=== PATIENT | female | born 1950 | race Asian ===

== ENCOUNTER 2017-07-21 14:30 | Inpatient (IN) | payer MEDICAID ==
[~2017-07-21] VITALS: Ht 165.1 cm; Wt 70.8 kg
[2017-07-21 14:31] VITALS: BP 120/80
[2017-07-21] MEDS ORDERED: MULTIVITAMINS1 EAC2 ORAL (14:50)
[2017-07-21] MEDS ORDERED: CRANBERRY425 MG PO (14:50)
[2017-07-21] MEDS ORDERED: LEVOTHYROXINE75 MCG ORAL (14:50)
[2017-07-21] MEDS ORDERED: VITAMIN C500 M1 ORAL (14:50)
[2017-07-21] MEDS ORDERED: ACETAMINOP160 MG/54 ORAL (14:50)
[2017-07-21] MEDS ORDERED: DOCUSATE SODIU100 MG ORAL (14:50)
[2017-07-21 15:07] VITALS: BP 129/80
[2017-07-21 15:28] LABS: BASOPHILS % (AUTO) 0.8 % (0.0-2.0); EOSINOPHILS % (AUTO) 1.8 % (0.0-3.0); LYMPHOCYTES % (AUTO) 31.8 % (20.0-45.0); MEAN CORPUSCULAR HEMOGLOBIN 33.8 PG (27.0-31.0); MEAN CORPUSCULAR VOLUME 106 FL (80-99); MEAN PLATELET VOLUME 4.7 FL (6.5-10.1); NEUTROPHILS % (AUTO) 60.7 % (45.0-75.0); PLATELET COUNT 237 K/UL (150-450); RED BLOOD COUNT 2.44 M/UL (4.20-5.40); RED CELL DISTRIBUTION WIDTH 14.6 % (11.6-14.8); WHITE BLOOD COUNT 5.4 K/UL (4.8-10.8)
[2017-07-21] MEDS ORDERED: DOCUSATE SODIU100 M2 ORAL (15:28)
[2017-07-21] MEDS ORDERED: ACETAMINOPHEN325 M1 ORAL ×2 (15:28)
[2017-07-21] MEDS ORDERED: VITAMIN C250 MG ORAL (15:28)
[2017-07-21] MEDS ORDERED: BACTRIM 400-801 EACH ORAL (15:28)
[2017-07-21 15:36] LABS: INR 0.9 (0.9-1.1); PROTHROMBIN TIME 9.6 SEC (9.30-11.50)
[2017-07-21 15:48] LABS: TROPONIN I < 0.30 ng/mL (<=0.30)
[2017-07-21 15:50] LABS: ALANINE AMINOTRANSFERASE 17 U/L (3-33); ALBUMIN/GLOBULIN RATIO 1.1 (1.0-2.7); ANION GAP 8 (5-15); ASPARTATE AMINO TRANSFERASE 30 U/L (5-40); CALCIUM 8.6 mg/dL (8.6-10.2); CARBON DIOXIDE 33 mEQ/L (20-30); CHLORIDE 98 mEQ/L (98-107); CREATININE 0.8 mg/dL (0.5-0.9); GLOMERULAR FILTRATION RATE > 60 mL/min (>60); HEMOLYSIS 3; POTASSIUM 3.6 mEQ/L (3.4-4.9); SODIUM 139 mEQ/L (135-145); TOTAL PROTEIN 5.7 g/dL (6.6-8.7)
--- NOTE | 2017-07-21 17:41 | Emergency Room Report ---
History of Present Illness General Chief Complaint: Abnormal Labs Source: Patient, Medical Record Present Illness HPI Patient is a 66-year-old female brought in by EMS after abnormal laboratory testing. The patient was noted to have a low hemoglobin as well as a high TSH. Patient had prior history of hypothyroidism. The patient was noted to have decreased level of Allergies: Coded Allergies: No Known Allergies (Unverified , 07/21/17) Patient History Reviewed Nursing Documentation: PMH: Agreed, PSxH: Agreed Nursing Documentation-PMH Past Medical History: No History, Except For Hx Neurological Problems: Yes - Alzheimer's disease and dementia Review of Systems All Other Systems: negative except mentioned in HPI Physical Exam Vital Signs Date Time Temp Pulse Resp B/P (MAP) Pulse Ox O2 Delivery O2 Flow Rate FiO2 07/21/17 14:31 97.0 69 16 120/80 99 Nasal Cannula 3.0 Sp02 EP Interpretation: reviewed, normal General Appearance: normal inspection, well appearing, no apparent distress, alert, GCS 15, non-toxic Head: atraumatic ENT: normal ENT inspection, hearing grossly normal, normal voice Neck: normal inspection, full range of motion, supple, no bony tend Respiratory: normal inspection, lungs clear, normal breath sounds, no respiratory distress, no retraction, no wheezing Cardiovascular #1: regular rate, rhythm, no edema Gastrointestinal: normal inspection, normal bowel sounds, non tender, soft, no guarding, no hernia Genitourinary: no CVA tenderness Musculoskeletal: normal inspection, back normal, normal range of motion Neurologic: normal inspection, alert, oriented x3, responsive, mock up maker III-XII nml as tested, speech normal Psychiatric: normal inspection, judgement/insight normal, mood/affect normal Skin: normal inspection, normal color, no rash Medical Decision Making Diagnostic Impression: Primary Impression: Severe anemia Additional Impression: Hypothyroidism ER Course This is 66-year-old female who presented after increased generalized weakness as well as abnormal lab tests. Differential diagnosis included was not limited to hypothyroidism, anemia, GI bleed among others.Because of complexity of patient's case laboratory testing and imaging studies were ordered. Laboratory testing was notable for increased elevation of the TSH. The patient also noted to have persistent anemia with a hemoglobin 8. Dr. Pineda Cormier was contacted for inpatient management. Labs Test 07/21/17 15:00 White Blood Count 5.4 K/UL (4.8-10.8) Red Blood Count 2.44 M/UL (4.20-5.40) Hemoglobin 8.3 G/DL (12.0-16.0) Hematocrit 25.8 % (37.0-47.0) Mean Corpuscular Volume 106 FL (80-99) Mean Corpuscular Hemoglobin 33.8 PG (27.0-31.0) Mean Corpuscular Hemoglobin Concent 32.0 G/DL (32.0-36.0) Red Cell Distribution Width 14.6 % (11.6-14.8) Platelet Count 237 K/UL (150-450) Mean Platelet Volume 4.7 FL (6.5-10.1) Neutrophils (%) (Auto) 60.7 % (45.0-75.0) Lymphocytes (%) (Auto) 31.8 % (20.0-45.0) Monocytes (%) (Auto) 5.0 % (1.0-10.0) Eosinophils (%) (Auto) 1.8 % (0.0-3.0) Basophils (%) (Auto) 0.8 % (0.0-2.0) Differential Total Cells Counted 100 Neutrophils % (Manual) 62 % (45-75) Lymphocytes % (Manual) 31 % (20-45) Monocytes % (Manual) 4 % (1-10) Eosinophils % (Manual) 2 % (0-3) Basophils % (Manual) 1 % (0-2) Band Neutrophils 0 % (0-8) Platelet Estimate Adequate Platelet Morphology Normal Hypochromasia 1+ Anisocytosis 1+ Macrocytosis 1+ Reticulocyte Count 2.0 % (0.0-2.0) Haptoglobin 233 mg/dL (30-200) Prothrombin Time 9.6 SEC (9.30-11.50) Prothromb Time International Ratio 0.9 (0.9-1.1) Activated Partial Thromboplast Time 29 SEC (23-33) Sodium Level 139 mEQ/L (135-145) Potassium Level 3.6 mEQ/L (3.4-4.9) Chloride Level 98 mEQ/L (98-107) Carbon Dioxide Level 33 mEQ/L (20-30) Anion Gap 8 (5-15) Blood Urea Nitrogen 10 mg/dL (7-23) Creatinine 0.8 mg/dL (0.5-0.9) Estimat Glomerular Filtration Rate > 60 mL/min (>60) Glucose Level 113 mg/dL (74-106) Calcium Level 8.6 mg/dL (8.6-10.2) Iron Level 53 ug/dL (37-145) Total Iron Binding Capacity 213 ug/dL (250-400) Percent Iron Saturation 25 % (15-50) Unsaturated Iron Binding 160 ug/dL (112-346) Ferritin 440 ng/mL (13-150) Total Bilirubin 0.2 mg/dL (0.0-1.2) Aspartate Amino Transf (AST/SGOT) 30 U/L (5-40) Alanine Aminotransferase (ALT/SGPT) 17 U/L (3-33) Alkaline Phosphatase 65 U/L (35-104) Lactate Dehydrogenase 258 U/L (135-230) Troponin I < 0.30 ng/mL (<=0.30) Total Protein 5.7 g/dL (6.6-8.7) Albumin 3.0 g/dL (3.5-5.2) Globulin 2.7 g/dL Albumin/Globulin Ratio 1.1 (1.0-2.7) Carcinoembryonic Antigen 11.7 ng/mL Vitamin B12 Level 433 pg/mL (211-946) Thyroid Stimulating Hormone (TSH) 53.170 uIU/mL (0.300-4.500) Last Vital Signs Date Time Temp Pulse Resp B/P (MAP) Pulse Ox O2 Delivery O2 Flow Rate FiO2 07/21/17 15:07 98.5 64 16 129/80 100 Nasal Cannula 3.0 Status: unchanged Disposition: ADMITTED INPATIENT Condition: Serious Referrals: Pineda Cormier MD (PCP) Robi Alexander Jul 21, 2017 17:41
[2017-07-21 19:33] VITALS: BP 120/72
[2017-07-21 20:30] VITALS: BP 116/71
[2017-07-21 21:00] VITALS: BP 130/74
[2017-07-21] MEDS ORDERED: PROSTAT SF (21:11)
[2017-07-21] MEDS ORDERED: PROSTAT SF PO (21:13)
[2017-07-21 21:27] LABS: ANISOCYTOSIS 1+; BAND NEUTROPHILS % (MANUAL) 0 % (0-8); BASOPHILS % (MANUAL) 1 % (0-2); EOSINOPHILS % (MANUAL) 2 % (0-3); HYPOCHROMASIA 1+; LYMPHOCYTES % (MANUAL) 31 % (20-45); MACROCYTES 1+; NEUTROPHILS % (MANUAL) 62 % (45-75); PLATELET ESTIMATE ADEQUATE; PLATELET MORPHOLOGY NORMAL; TOTAL CELLS COUNTED 100
[2017-07-21 21:28] LABS: PATH BLOOD SMEAR/OMC SENT TO PATHOLOGIST
[2017-07-22 00:24] VITALS: BP 142/85
[2017-07-22 04:27] VITALS: BP 140/85
--- NOTE | 2017-07-22 07:53 | Wound Care Consultation ---
Wound Assessment Wound Assessment #1: Wound Number: 1 Wound Present on Admission: Yes New Wound: No Status Change of Wound: No Wound Location Body Site Modif: mid Wound Location Body Site: other - sacrococcygeal area Wound Type: pressure ulcer Martha Test: Does not Martha Pressure Ulcer Stage: I Wound Length: 3.0 Wound Width: 3.5 Percent of Wound Dike/Red: 100 Wound Drainage Amount: None Wound Drainage Odor: None/Absent Tissue Surrounding Wound: Erythemic Wound General Appearance: Reddened Wound Assessment #2: Wound Number: 2 Wound Present on Admission: Yes New Wound: No Status Change of Wound: No Wound Location Body Site Modif: right Wound Location Body Site: other - pubic area Wound Type: other - folliculitis Martha Test: Does not Martha Wound Length: 0.1 Wound Width: 0.1 Percent of Wound Bed Yellow/Wh: 100 Wound Drainage Amount: None Wound Drainage Odor: None/Absent Tissue Surrounding Wound: Erythemic Wound Comment #1 Sacrococcygeal stage I pressure ulcer #2 Folliculitis on pubic area. One single pustule. Recommendation -Folliculitis on pubic area. One single pustule. Cleanse with saline pat dry apply skin barrier film apply adaptic, cover with transparent drg daily and PRN soiled/dislodged -Local wound care for stage I on sacrococcygeal area per protocol -Keep clean and dry -Turn and reposition -Offload both heels -Optimize nutrition -Heel protector on both heels -Low air loss SPR mattress -Assess and f/u accordingly for any changes TERI KEITH RN Jul 22, 2017 07:53
[2017-07-22 08:09] VITALS: BP 134/93
[2017-07-22] MEDS: Pantoprazole Inj IV SCH (08:45)
[2017-07-22 10:32] LABS: BASOPHILS % (AUTO) 0.8 % (0.0-2.0); EOSINOPHILS % (AUTO) 1.5 % (0.0-3.0); LYMPHOCYTES % (AUTO) 26.7 % (20.0-45.0); MEAN CORPUSCULAR HEMOGLOBIN 34.3 PG (27.0-31.0); MEAN CORPUSCULAR HGB CONC 32.5 G/DL (32.0-36.0); MEAN CORPUSCULAR VOLUME 106 FL (80-99); MEAN PLATELET VOLUME 4.9 FL (6.5-10.1); MONOCYTES % (AUTO) 4.4 % (1.0-10.0); NEUTROPHILS % (AUTO) 66.6 % (45.0-75.0); PLATELET COUNT 261 K/UL (150-450); RED BLOOD COUNT 2.49 M/UL (4.20-5.40); RED CELL DISTRIBUTION WIDTH 14.5 % (11.6-14.8); WHITE BLOOD COUNT 5.5 K/UL (4.8-10.8)
[2017-07-22 10:44] LABS: INR 0.9 (0.9-1.1); PROTHROMBIN TIME 9.5 SEC (9.30-11.50)
[2017-07-22 10:47] LABS: ALANINE AMINOTRANSFERASE 14 U/L (3-33); ANION GAP 7 (5-15); ASPARTATE AMINO TRANSFERASE 28 U/L (5-40); CALCIUM 8.9 mg/dL (8.6-10.2); CARBON DIOXIDE 34 mEQ/L (20-30); CHLORIDE 101 mEQ/L (98-107); CREATININE 0.7 mg/dL (0.5-0.9); GLOMERULAR FILTRATION RATE > 60 mL/min (>60); HEMOLYSIS 1; POTASSIUM 3.9 mEQ/L (3.4-4.9); SODIUM 142 mEQ/L (135-145); TOTAL PROTEIN 6.1 g/dL (6.6-8.7)
[2017-07-22 11:53] VITALS: BP 132/80
--- NOTE | 2017-07-22 12:07 | GI Initial Consult Note ---
Emmy Guthrie N.PKary 07/22/17 1207: History of Present Illness General Date patient seen: Jul 22, 2017 Time patient seen: 10:00 Reason for Hospitalization: Abnormal Labs Referring physician: [facility] Reason for Consultation: ANEMIA Present Illness HPI Patient is a 66-year-old female brought in by EMS after abnormal laboratory testing. The patient was noted to have a low hemoglobin as well as a high TSH. Patient had prior history of hypothyroidism. GI consulted for anemia. HPI as noted above. ROS limited, AMS. Pt seen on floor, awake alert NAD with no active s/sx of N/V/D. She presents today with anemia, elevated CEA 11.9 and hypoalbuminemia. Unknown history of endoscopic procedures at this time. Home Meds Reported Medications [Prostat SF] No Conflict Check, 30 ML PO DAILY 07/21/17 Ascorbic Acid* (VITAMIN C*) 250 Mg Tablet, 250 MG ORAL TWICE A DAY, #60 TAB 0 Refills 07/21/17 Acetaminophen* (ACETAMINOPHEN 325MG TABLET*) 325 Mg Tablet, 650 MG ORAL Q6H Y for Mild Pain/Temp > 100.5, TAB 07/21/17 Acetaminophen* (ACETAMINOPHEN 325MG TABLET*) 325 Mg Tablet, 650 MG ORAL Q4H Y for Mild Pain (Pain Scale 1-3), TAB 07/21/17 Docusate Sodium (DOCUSATE SODIUM) 100 Mg Tablet, 100 MG ORAL TWICE A DAY, #60 TAB 0 Refills 07/21/17 Sulfamethoxazole/Trimethoprim (BACTRIM 400-80 MG TABLET*) 1 Each Tablet, 1 TAB ORAL TWICE A DAY, TAB 07/21/17 Ascorbic Acid* (VITAMIN C*) 500 Mg Tablet, 500 MG ORAL TWICE A DAY, TAB 07/21/17 Acetaminophen* (ACETAMINOPHEN*) 160 Mg/5 Ml Solution, 650 MG ORAL Q6H Y for Mild Pain/Temp > 100.5, ML 07/21/17 Levothyroxine Sodium* (LEVOTHYROXINE SODIUM*) 75 Mcg Tablet, 75 MCG ORAL DAILY, TAB Take in the morning on an empty stomach, at least 30 minutes before food. 07/21/17 Docusate Sodium* (DOCUSATE SODIUM*) 100 Mg Capsule, 100 MG ORAL TWICE A DAY, CAP 07/21/17 Multivitamins* (MULTIVITAMINS*) 1 Each Tablet, 1 TAB ORAL DAILY, TAB 0 Refills 07/21/17 Cranberry Extract (CRANBERRY) 425 Mg Capsule, 425 MG PO, CAP 07/21/17 Med list reviewed/reconciled: Yes Allergies: Coded Allergies: No Known Allergies (Unverified , 07/21/17) Patient History Limited by: medical condition History Provided By: Medical Record [facility] Narrative Past Medical History: No History, Except For Hx Neurological Problems: Yes - Alzheimer's disease and dementia Review of Systems All Other Systems: limited Physical Exam Vital Signs Date Time Temp Pulse Resp B/P (MAP) Pulse Ox O2 Delivery O2 Flow Rate FiO2 07/21/17 14:31 97.0 69 16 120/80 99 Nasal Cannula 3.0 Sp02 EP Interpretation: reviewed Labs Laboratory Tests Test 07/21/17 15:00 07/22/17 09:35 White Blood Count 5.4 K/UL (4.8-10.8) 5.5 K/UL (4.8-10.8) Red Blood Count 2.44 M/UL (4.20-5.40) L 2.49 M/UL (4.20-5.40) L Hemoglobin 8.3 G/DL (12.0-16.0) L 8.5 G/DL (12.0-16.0) L Hematocrit 25.8 % (37.0-47.0) L 26.3 % (37.0-47.0) L Mean Corpuscular Volume 106 FL (80-99) H 106 FL (80-99) H Mean Corpuscular Hemoglobin 33.8 PG (27.0-31.0) H 34.3 PG (27.0-31.0) H Mean Corpuscular Hemoglobin Concent 32.0 G/DL (32.0-36.0) 32.5 G/DL (32.0-36.0) Red Cell Distribution Width 14.6 % (11.6-14.8) 14.5 % (11.6-14.8) Platelet Count 237 K/UL (150-450) 261 K/UL (150-450) Mean Platelet Volume 4.7 FL (6.5-10.1) L 4.9 FL (6.5-10.1) L Neutrophils (%) (Auto) 60.7 % (45.0-75.0) 66.6 % (45.0-75.0) Lymphocytes (%) (Auto) 31.8 % (20.0-45.0) 26.7 % (20.0-45.0) Monocytes (%) (Auto) 5.0 % (1.0-10.0) 4.4 % (1.0-10.0) Eosinophils (%) (Auto) 1.8 % (0.0-3.0) 1.5 % (0.0-3.0) Basophils (%) (Auto) 0.8 % (0.0-2.0) 0.8 % (0.0-2.0) Differential Total Cells Counted 100 Neutrophils % (Manual) 62 % (45-75) Lymphocytes % (Manual) 31 % (20-45) Monocytes % (Manual) 4 % (1-10) Eosinophils % (Manual) 2 % (0-3) Basophils % (Manual) 1 % (0-2) Band Neutrophils 0 % (0-8) Platelet Estimate Adequate Platelet Morphology Normal Hypochromasia 1+ Anisocytosis 1+ Macrocytosis 1+ Reticulocyte Count 2.0 % (0.0-2.0) Haptoglobin 233 mg/dL (30-200) H Prothrombin Time 9.6 SEC (9.30-11.50) 9.5 SEC (9.30-11.50) Prothromb Time International Ratio 0.9 (0.9-1.1) 0.9 (0.9-1.1) Activated Partial Thromboplast Time 29 SEC (23-33) 29 SEC (23-33) Sodium Level 139 mEQ/L (135-145) 142 mEQ/L (135-145) Potassium Level 3.6 mEQ/L (3.4-4.9) 3.9 mEQ/L (3.4-4.9) Chloride Level 98 mEQ/L (98-107) 101 mEQ/L (98-107) Carbon Dioxide Level 33 mEQ/L (20-30) H 34 mEQ/L (20-30) H Anion Gap 8 (5-15) 7 (5-15) Blood Urea Nitrogen 10 mg/dL (7-23) 9 mg/dL (7-23) Creatinine 0.8 mg/dL (0.5-0.9) 0.7 mg/dL (0.5-0.9) Estimat Glomerular Filtration Rate > 60 mL/min (>60) > 60 mL/min (>60) Glucose Level 113 mg/dL (74-106) H 79 mg/dL (74-106) Calcium Level 8.6 mg/dL (8.6-10.2) 8.9 mg/dL (8.6-10.2) Iron Level 53 ug/dL (37-145) Total Iron Binding Capacity 213 ug/dL (250-400) L Percent Iron Saturation 25 % (15-50) Unsaturated Iron Binding 160 ug/dL (112-346) Ferritin 440 ng/mL (13-150) H Total Bilirubin 0.2 mg/dL (0.0-1.2) 0.4 mg/dL (0.0-1.2) Aspartate Amino Transf (AST/SGOT) 30 U/L (5-40) 28 U/L (5-40) Alanine Aminotransferase (ALT/SGPT) 17 U/L (3-33) 14 U/L (3-33) Alkaline Phosphatase 65 U/L (35-104) 62 U/L (35-104) Lactate Dehydrogenase 258 U/L (135-230) H Troponin I < 0.30 ng/mL (<=0.30) Total Protein 5.7 g/dL (6.6-8.7) L 6.1 g/dL (6.6-8.7) L Albumin 3.0 g/dL (3.5-5.2) L 3.1 g/dL (3.5-5.2) L Globulin 2.7 g/dL 3.0 g/dL Albumin/Globulin Ratio 1.1 (1.0-2.7) 1.0 (1.0-2.7) Carcinoembryonic Antigen 11.7 ng/mL H Vitamin B12 Level 433 pg/mL (211-946) Methylmalonic Acid Pending Folate Pending Thyroid Stimulating Hormone (TSH) 53.170 uIU/mL (0.300-4.500) Magnesium Level 2.0 mg/dL (1.7-2.5) Free Thyroxine 0.53 ng/dL (0.86-1.85) L General Appearance: no apparent distress, alert Head: normocephalic EENT: PERRL/EOMI, normal ENT inspection Neck: supple Respiratory: normal breath sounds, no respiratory distress Cardiovascular: normal rate Gastrointestinal: normal inspection, non tender, soft Neurologic: alert Skin: normal inspection, normal color, no rash, warm/dry Lymphatic: normal inspection, no adenopathy Current Medications Current Medications Medications (Trade) Dose Ordered Sig/Armani Route PRN Reason Start Time Stop Time Status Last Admin Dose Admin Acetaminophen (Tylenol) 650 mg Q4H PRN ORAL Mild Pain (Pain Scale 1-3) 07/21/17 22:45 08/20/17 22:44 Dextrose (Dextrose 50%) STAT PRN IV Hypoglycemia 07/21/17 22:45 08/20/17 22:44 Ondansetron HCl (Zofran) 4 mg Q6H PRN IVP Nausea & Vomiting 07/21/17 22:45 08/20/17 22:44 Pantoprazole (Protonix) 40 mg DAILY IV 07/22/17 09:00 08/21/17 08:59 07/22/17 08:45 GI: Plan Problems: (1) Elevated CEA (2) Hypoalbuminemia (3) Generalized weakness (4) Severe anemia (5) Hypothyroidism Plan EGD/colonoscopy to be scheduled tomorrow given severe anemia and elevated CEA 11.7. - CLD, NPO @ [facility]. - hold all blood thinners tonight. monitor H&H, prn transfusions anemia work up >> fu B12/folate ppi will resume levothyroxine 75mcg fu labs Discussed with Dr. Otto. Thank you for this patient referral. LEOBARDO OTTO 07/22/17 2193: History of Present Illness General Reason for Hospitalization: Abnormal Labs Present Illness Home Meds Reported Medications [Prostat SF] No Conflict Check, 30 ML PO DAILY 07/21/17 Ascorbic Acid* (VITAMIN C*) 250 Mg Tablet, 250 MG ORAL TWICE A DAY, #60 TAB 0 Refills 07/21/17 Acetaminophen* (ACETAMINOPHEN 325MG TABLET*) 325 Mg Tablet, 650 MG ORAL Q6H Y for Mild Pain/Temp > 100.5, TAB 07/21/17 Acetaminophen* (ACETAMINOPHEN 325MG TABLET*) 325 Mg Tablet, 650 MG ORAL Q4H Y for Mild Pain (Pain Scale 1-3), TAB 07/21/17 Docusate Sodium (DOCUSATE SODIUM) 100 Mg Tablet, 100 MG ORAL TWICE A DAY, #60 TAB 0 Refills 07/21/17 Sulfamethoxazole/Trimethoprim (BACTRIM 400-80 MG TABLET*) 1 Each Tablet, 1 TAB ORAL TWICE A DAY, TAB 07/21/17 Ascorbic Acid* (VITAMIN C*) 500 Mg Tablet, 500 MG ORAL TWICE A DAY, TAB 07/21/17 Acetaminophen* (ACETAMINOPHEN*) 160 Mg/5 Ml Solution, 650 MG ORAL Q6H Y for Mild Pain/Temp > 100.5, ML 07/21/17 Levothyroxine Sodium* (LEVOTHYROXINE SODIUM*) 75 Mcg Tablet, 75 MCG ORAL DAILY, TAB Take in the morning on an empty stomach, at least 30 minutes before food. 07/21/17 Docusate Sodium* (DOCUSATE SODIUM*) 100 Mg Capsule, 100 MG ORAL TWICE A DAY, CAP 07/21/17 Multivitamins* (MULTIVITAMINS*) 1 Each Tablet, 1 TAB ORAL DAILY, TAB 0 Refills 07/21/17 Cranberry Extract (CRANBERRY) 425 Mg Capsule, 425 MG PO, CAP 07/21/17 Allergies: Coded Allergies: No Known Allergies (Unverified , 07/21/17) GI: Plan Plan The patient was seen and examined at bedside and all new and available data was reviewed in the patients chart. I agree with the above findings, impression and plan. (Patient seen earlier today. Signature stamp does not reflect patient encounter time.). -Eloina Rao MDh Burak Villareal Jul 22, 2017 12:07 LEOBARDO OTTO Jul 22, 2017 14:56
[2017-07-22 15:52] VITALS: BP 133/89
[2017-07-22] MEDS ORDERED: Magnesium Citrate Liq Btl ORAL ONE (16:00)
[2017-07-22] MEDS ORDERED: Bisacodyl EC 5mg tab ORAL ONE (16:00)
[2017-07-22] MEDS ORDERED: Polyethylene Glycol 238gm bottle ORAL ONE (16:00)
[2017-07-22 20:48] VITALS: BP 136/82
[2017-07-22] MEDS ORDERED: Fleet's Enema 133ml RECTAL ONE (23:00)
[2017-07-23] VITALS (10 sets, daily range): BP systolic 123–156; BP diastolic 72–96
--- NOTE | 2017-07-23 06:34 | Anethesia Preoperative Eval ---
Anesthesia Pre-op PMH/ROS General Date of Evaluation: Jul 23, 2017 Time of Evaluation: 06:28 Anesthesiologist: petey ASA Score: ASA 3 Mallampati Score Class I : Soft palate, uvula, fauces, pillars visible Class II: Soft palate, uvula, fauces visible Class III: Soft palate, base of uvula visible Class IV: Only hard plate visible Mallampati Classification: Class II Surgeon: yoan Diagnosis: severe anemia Surgical Procedure: egd/colonoscopy Anesthesia History: none Family History: no anesthesia problems Allergies: Coded Allergies: No Known Allergies (Unverified , 07/21/17) Medications: see eMAR Past Medical History Gastrointestinal/Genitourinary: Reports: other - elevated cea Neurologic/Psychiatric: Reports: dementia - alzheimer's disease, other - generalized weakness, Endocrine: Reports: hypothyroidism Hematology/Immune: Reports: anemia Other: other - hypoalbuminemia Anesthesia Pre-op Phys. Exam Physician Exam Last Vital Signs Date Time Temp Pulse Resp B/P (MAP) Pulse Ox O2 Delivery O2 Flow Rate FiO2 07/23/17 04:48 97.7 68 16 142/72 97 07/23/17 00:49 Nasal Cannula 07/22/17 20:48 2.0 Constitutional: NAD Neurologic: CN 2-12 intact Cardiovascular: RRR Respiratory: CTA Gastrointestinal: S/NT/ND Airway Exam Mallampati Score: Class II MO: full Neck: supple TMD: 2fb ROM: limited Anesthesia Pre-op A/P Labs Hematology Test 07/22/17 09:35 White Blood Count 5.5 K/UL (4.8-10.8) Red Blood Count 2.49 M/UL (4.20-5.40) L Hemoglobin 8.5 G/DL (12.0-16.0) L Hematocrit 26.3 % (37.0-47.0) L Mean Corpuscular Volume 106 FL (80-99) H Mean Corpuscular Hemoglobin 34.3 PG (27.0-31.0) H Mean Corpuscular Hemoglobin Concent 32.5 G/DL (32.0-36.0) Red Cell Distribution Width 14.5 % (11.6-14.8) Platelet Count 261 K/UL (150-450) Mean Platelet Volume 4.9 FL (6.5-10.1) L Neutrophils (%) (Auto) 66.6 % (45.0-75.0) Lymphocytes (%) (Auto) 26.7 % (20.0-45.0) Monocytes (%) (Auto) 4.4 % (1.0-10.0) Eosinophils (%) (Auto) 1.5 % (0.0-3.0) Basophils (%) (Auto) 0.8 % (0.0-2.0) Coagulation Test 07/22/17 09:35 Prothrombin Time 9.5 SEC (9.30-11.50) Prothromb Time International Ratio 0.9 (0.9-1.1) Activated Partial Thromboplast Time 29 SEC (23-33) Chemistry Test 07/22/17 09:35 Sodium Level 142 mEQ/L (135-145) Potassium Level 3.9 mEQ/L (3.4-4.9) Chloride Level 101 mEQ/L (98-107) Carbon Dioxide Level 34 mEQ/L (20-30) H Anion Gap 7 (5-15) Blood Urea Nitrogen 9 mg/dL (7-23) Creatinine 0.7 mg/dL (0.5-0.9) Estimat Glomerular Filtration Rate > 60 mL/min (>60) Glucose Level 79 mg/dL (74-106) Calcium Level 8.9 mg/dL (8.6-10.2) Magnesium Level 2.0 mg/dL (1.7-2.5) Total Bilirubin 0.4 mg/dL (0.0-1.2) Aspartate Amino Transf (AST/SGOT) 28 U/L (5-40) Alanine Aminotransferase (ALT/SGPT) 14 U/L (3-33) Alkaline Phosphatase 62 U/L (35-104) Total Protein 6.1 g/dL (6.6-8.7) L Albumin 3.1 g/dL (3.5-5.2) L Globulin 3.0 g/dL Albumin/Globulin Ratio 1.0 (1.0-2.7) Free Thyroxine 0.53 ng/dL (0.86-1.85) L Risk Assessment & Plan Assessment: asa3 Plan: mac Status Change Before Surgery: No Pre-Antibiotics Drug: POORNIMA Scales Jul 23, 2017 06:33
[2017-07-23 07:11] LABS: EOSINOPHILS % (AUTO) 1.1 % (0.0-3.0); LYMPHOCYTES % (AUTO) 21.9 % (20.0-45.0); MEAN CORPUSCULAR HEMOGLOBIN 33.5 PG (27.0-31.0); MEAN CORPUSCULAR HGB CONC 31.5 G/DL (32.0-36.0); MEAN CORPUSCULAR VOLUME 106 FL (80-99); MEAN PLATELET VOLUME 5.5 FL (6.5-10.1); MONOCYTES % (AUTO) 5.3 % (1.0-10.0); NEUTROPHILS % (AUTO) 70.8 % (45.0-75.0); PLATELET COUNT 258 K/UL (150-450); RED BLOOD COUNT 2.58 M/UL (4.20-5.40); RED CELL DISTRIBUTION WIDTH 15.1 % (11.6-14.8); WHITE BLOOD COUNT 5.5 K/UL (4.8-10.8)
[2017-07-23 07:22] LABS: INR 0.9 (0.9-1.1); PROTHROMBIN TIME 9.8 SEC (9.30-11.50)
[2017-07-23 07:27] LABS: ANION GAP 8 (5-15); CALCIUM 8.9 mg/dL (8.6-10.2); CARBON DIOXIDE 35 mEQ/L (20-30); CHLORIDE 101 mEQ/L (98-107); CREATININE 0.7 mg/dL (0.5-0.9); GLOMERULAR FILTRATION RATE > 60 mL/min (>60); HEMOLYSIS 0; POTASSIUM 3.9 mEQ/L (3.4-4.9); SODIUM 144 mEQ/L (135-145)
[2017-07-23] MEDS ORDERED: Propofol 200mg/20ml IV ONE (07:30)
[2017-07-23] MEDS ORDERED: Lidocaine 1% MPF 10mg/ml 5ml ONE (07:30)
[2017-07-23] MEDS ORDERED: NS 500ML IV ONE (07:50)
[2017-07-23] MEDS ORDERED: Midazolam 2mg/2ml Inj IVP PRN (08:00)
[2017-07-23] MEDS ORDERED: fentaNYL 100 mcg/2 mL IV PRN (08:00)
[2017-07-23] MEDS ORDERED: Atropine Inj 1mg/10ml Syr IV PRN (08:00)
[2017-07-23] MEDS ORDERED: DiphenhydrAMINE 50mg/ml Inj IVP PRN (08:00)
--- NOTE | 2017-07-23 08:01 | Pre-Procedure Note/Attestation ---
Pre-Procedure Note/Attestation Complete Prior to Procedure Planned Procedure: not applicable Procedure Narrative: esophagogastroduodenoscopy and colonoscopy Indications for Procedure Pre-Operative Diagnosis: anemia Attestation I attest that I discussed the nature of the procedure; its benefits; risks and complications; and alternatives (and the risks and benefits of such alternatives ), prior to the procedure, with the patient (or the patient's legal medical device sales representative). I attest that, if there was a reasonable possibility of needing a blood transfusion, the patient (or the patient's legal medical device sales representative) was given the [facility] standardized written summary, pursuant to the [place] Blood Safety Act ([place] Health and Safety Code # 1645, as amended). I attest that I re-evaluated the patient just prior to the surgery and that there has been no change in the patient's H&P, except as documented below: LEOBARDO OTTO Jul 23, 2017 08:01
--- NOTE | 2017-07-23 08:01 | Consultation ---
DATE OF CONSULTATION: 07/22/2017 HEMATOLOGY/ONCOLOGY CONSULTATION CONSULTING PHYSICIAN: Arturo Newton M.D. ATTENDING PHYSICIAN: Pineda Cormier M.D. REFERRING PHYSICIAN: Pineda Cormier M.D. REASON FOR CONSULTATION: Evaluation of elevated CEA and anemia. HISTORY OF PRESENT ILLNESS: Dear Dr. Cormier: The patient is a pleasant 66-year-old female with past medical history significant for dementia, Alzheimer disease, hypothyroidism, and influenza vaccination, at this time presents to [facility] with abnormal laboratory testing, high TSH, prior history of hepatitis and again noted to have an elevated CEA as well as anemia and to have an endoscopy tomorrow. GI and Hematology consulted. PAST MEDICAL HISTORY: As noted above. MEDICATIONS: , multivitamin, Tylenol, Levoxyl, and Colace. ALLERGIES: No known drug allergies. Review Of Systems: Difficult to obtain due to the patient's mental status because of dementia. PHYSICAL EXAMINATION: Vital Signs: Temperature 97 degrees Fahrenheit, pulse of 82, respiratory rate 20, blood pressure 120/80, and pulse oximetry 99% on room air. GENERAL: The patient is in no acute distress. PULMONARY: Decreased breath sounds. No crackles noted. CARDIOVASCULAR: Regular rate. No S3 or S4. ABDOMEN: Soft, nontender, and nondistended. EXTREMITIES: There is 1+ edema. Laboratory Data: WBC 4.1, hemoglobin 8.5, hematocrit 26, and platelet count 261,000. ASSESSMENT AND PLAN: 1. Anemia, secondary to chronic disease. Anemia workup has been reviewed. Obtain endoscopy as per GI service on 07/23/2017. 2. Elevated CEA, rule out malignancy especially colon cancer, to obtain endoscopy tomorrow. We will follow up on the results. 3. Macrocytosis, B12 and folic acid deficiency. Folate level at this time is still pending. If macrocytosis is likely related to hypothyroidism, may need to increase Synthroid. 4. Generalized weakness. 5. Hyperlipidemia. I appreciate the consultation. Arturo Newton M.D. DR: Caroline JOB#: [id number] CC:
--- NOTE | 2017-07-23 08:01 | History and Physical Report ---
DATE OF ADMISSION: 07/21/2017 History of Present Illness: The patient is admitted for hypothyroidism with generalized weakness, as well as with anemia, elevated TSH. The patient is a very poor historian, cannot rely upon her history and cannot get any history from her. complication. Past Medical History: , constipation, hypothyroidism, hypoalbuminemia, elevated CEA, and severe anemia. PAST SURGICAL HISTORY: Denies. Medications: Levoxyl 25 mcg daily, multivitamin, vitamin C, and Colace. ALLERGIES: No known allergies. SOCIAL HISTORY: Unable to obtain. FAMILY HISTORY: Unable to obtain. REVIEW OF SYSTEMS: Unable to obtain. Poor historian. PHYSICAL EXAMINATION: Vital Signs: Temperature is 97.2 degrees, pulse is 78, and blood pressure is 132/89. HEENT: PERRLA. NECK: Supple. No lymphadenopathy. CHEST: Clear to auscultation. Gastrointestinal: Soft, nontender, and nondistended. No organomegaly. EXTREMITIES: No edema. Moves all 4 extremities. Neurologic: Sensory intact to light touch. Reflexes are equal on both sides. Confused due to her baseline. Laboratory Data: WBC of 5.9, hemoglobin 8.3, platelets 237,000. Sodium 139, potassium 3.6, BUN of 10, creatinine of 0.8. TSH of 53. ASSESSMENT AND PLAN: 1. Hypothyroidism, severe. 2. Anemia, severe. 3. Elevated chronic obstructive pulmonary disease. 4. I have asked Dr. Srinivasan, Dr. Albarado, Dr. Rubi, and Dr. Newton to see the patient for the above mentioned diagnoses and treatment. Pineda Cormier M.D. DR: Carlos JOB#: [id number] CC:
--- NOTE | 2017-07-23 08:46 | Endoscopy Procedure Note ---
Endoscopy Procedure Note Indication for Procedure: anemia, elevated CEA Procedures Performed: EGD, colonoscopy Operative Findings/Diagnosis: 4 colon polyps, gastritis Specimen: yes Pt Tolerated Procedure Well: Yes Estimated Blood Loss: none Anesthesiologist: salomon Anesthesia: MAC Implant(s) used?: No 50 yrs or older w/o bx or poly: Not Applicable 10yrs. F/U not recommended: Not Applicable LEOBARDO OTTO Jul 23, 2017 08:46
--- NOTE | 2017-07-23 09:30 | Immediate Post-Op Evaluation ---
Immediate Post-Op Evalulation Immediate Post-Op Evalulation Procedure: egd/colonoscopt Date of Evaluation: Jul 23, 2017 Time of Evaluation: 09:03 IV Fluids: 150ml 0.9ns Blood Products: none Estimated Blood Loss: negligible Blood Pressure Systolic: 148 Blood Pressure Diastolic: 91 Pulse Rate: 67 Respiratory Rate: 18 O2 Sat by Pulse Oximetry: 96 Temperature (Fahrenheit): 97.3 Pain Score (1-10): 0 Nausea: No Vomiting: No Complications none Patient Status: awake, reacts, patent Hydration Status: adequate Drug: POORNIMA Scales Jul 23, 2017 09:30
--- NOTE | 2017-07-23 09:32 | 48 Hour Post Anesthesia Eval ---
Post Anesthesia Evaluation Procedure: egd/colonoscopt Date of Evaluation: Jul 23, 2017 Time of Evaluation: 09:31 Blood Pressure Systolic: 147 0: 87 Pulse Rate: 67 Respiratory Rate: 18 Temperature (Fahrenheit): 97.3 O2 Sat by Pulse Oximetry: 96 Airway: patent Nausea: No Vomiting: No Pain Intensity: 0 Hydration Status: adequate Cardiopulmonary Status: stable Mental Status/LOC: patient returned to baseline Post-Anesthesia Complications: none Follow-up care needed: N/A POORNIMA AUGUSTE Jul 23, 2017 09:32
[2017-07-23] MEDS: Pantoprazole Inj IV SCH (09:49)
--- NOTE | 2017-07-23 11:06 | Diagnostic Imaging Report ---
APPROVED REPORT CPT Code: 31386 Present Symptoms Shortness of breath Comments: Screening for SCDs BILATERAL: Imaging reveals a patent deep venous system bilaterally. There is no evidence of thrombus within the femoral, popliteal or tibial segments. The greater saphenous veins are also within normal limits. Doppler indicates normal spontaneous flow within these segments.
--- NOTE | 2017-07-23 13:25 | General Progress Note ---
Assessment/Plan Problem List: (1) Generalized weakness ICD Codes: R53.1 - Weakness SNOMED: 05578628 (2) Hypothyroidism ICD Codes: E03.9 - Hypothyroidism, unspecified SNOMED: 99618207 (3) Elevated CEA ICD Codes: R97.0 - Elevated carcinoembryonic antigen [CEA] SNOMED: 97747540, 176364182 (4) Severe anemia ICD Codes: D64.9 - Anemia, unspecified SNOMED: 316021550 Status: progressing Assessment/Plan anemia w colon polyp dr mitlon did polypectomy and sent it for biopsy elev tsh hypothyroid Subjective ROS Limited/Unobtainable: Yes Constitutional: Reports: no symptoms Allergies: Coded Allergies: No Known Allergies (Unverified , 07/21/17) Objective Last 24 Hour Vital Signs Date Time Temp Pulse Resp B/P (MAP) Pulse Ox O2 Delivery O2 Flow Rate FiO2 07/23/17 11:58 97.7 75 18 140/86 98 Nasal Cannula 2.0 07/23/17 11:03 96 Nasal Cannula 2.0 07/23/17 11:03 Nasal Cannula 2.0 07/23/17 09:32 67 18 96 07/23/17 09:30 67 18 96 07/23/17 09:10 97.8 67 18 142/90 97 Nasal Cannula 2.0 07/23/17 09:02 67 16 141/95 97 Nasal Cannula 2.0 07/23/17 08:57 71 15 143/95 97 Nasal Cannula 2.0 07/23/17 08:52 97.3 71 14 156/96 96 Nasal Cannula 2.0 07/23/17 08:00 60 07/23/17 07:30 98.1 67 18 137/88 94 Nasal Cannula 2.0 07/23/17 04:48 97.7 68 16 142/72 97 07/23/17 04:00 67 07/23/17 00:49 97.5 16 146/92 94 Nasal Cannula 07/23/17 00:00 64 07/22/17 20:48 97.5 66 16 136/82 97 Nasal Cannula 2.0 07/22/17 20:00 66 07/22/17 16:00 61 07/22/17 15:52 97.9 65 18 133/89 99 Nasal Cannula 2.0 Intake and Output 07/23/17 07/24/17 19:00 07:00 Intake Total 150 ml Balance 150 ml IV Total 150 ml Laboratory Tests 07/23/17 06:30: White Blood Count 5.5, Red Blood Count 2.58L, Hemoglobin 8.6L, Hematocrit 27.5L , Mean Corpuscular Volume 106H, Mean Corpuscular Hemoglobin 33.5H, Mean Corpuscular Hemoglobin Concent 31.5L, Red Cell Distribution Width 15.1H, Platelet Count 258, Mean Platelet Volume 5.5L, Neutrophils (%) (Auto) 70.8, Lymphocytes (%) (Auto) 21.9, Monocytes (%) (Auto) 5.3, Eosinophils (%) (Auto) 1.1, Basophils (%) (Auto) 1.0, Prothrombin Time 9.8, Prothromb Time International Ratio 0.9, Sodium Level 144, Potassium Level 3.9, Chloride Level 101, Carbon Dioxide Level 35H, Anion Gap 8, Blood Urea Nitrogen 9, Creatinine 0.7, Estimat Glomerular Filtration Rate > 60, Glucose Level 90, Calcium Level 8.9, CA 19-9 Antigen 14.61 Height (Feet): 5 Height (Inches): 5.00 Weight (Pounds): 156 Cardiovascular: normal rate Respiratory/Chest: lungs clear Abdomen: soft Pineda Cormier MD Jul 23, 2017 13:25
--- NOTE | 2017-07-23 14:26 | Diagnostic Imaging Report ---
Indication: Chest and abdominal pain. Anemia. COPD. Hepatitis Technique: Continuous helical transaxial imaging of the chest, abdomen and pelvis was obtained from the lung bases to the pubic symphysis during intravenous contrast administration. Multiple phases of enhancement obtained. Coronal 2-D reformats were also obtained. Study obtained in a Siemens sensation [address] Total Dose length Product (DLP): [address] Dose Index Volume (CTDIvol): 8.1, 0.15, 73, 13.3, 15.27 mGy Comparison: None Findings: There are small bilateral pleural effusions demonstrated. There is a posterior basilar consolidation versus atelectasis between aerated lung in the effusion. Most of this is probably atelectasis. No adenopathy seen. There is no paracardial effusion demonstrated. Axilla. Clear. There is generalized subcutaneous edema especially within the abdomen and pelvis consistent with anasarca. The aorta is moderately calcified. There is no evidence of bowel obstruction. However there is thickening of the wall of the rectosigmoid colon is fluid-filled. There is presacral soft tissue stranding present. Findings consistent with proctocolitis. There is mild ascites. The right diverticula are noted in the colon. No obvious abnormalities of the liver or spleen identified. The gallbladder is grossly unremarkable. The pancreas is grossly unremarkable. There is no hydronephrosis. The appendix is not seen. There is severe compression fracture deformity of the T12 vertebra which appears sclerotic Impression: Small bilateral pleural effusions with posterior basilar atelectasis. Pneumonia not excluded. Anasarca Proctocolitis with wall thickening. Liquefied stool likely indicative of diarrhea. Please correlate clinically. Trace ascites Atherosclerotic disease. Appendix not seen Right 2 cm ovarian cyst T12 compression fracture probably old. The CT scanner at [facility] is accredited by the [employer] and the scans are performed using dose optimization techniques as appropriate to a performed exam including Automatic Exposure control.
--- NOTE | 2017-07-23 14:47 | General Progress Note ---
Assessment/Plan Assessment/Plan ASSESSMENT AND PLAN: 1. Anemia, secondary to chronic disease. Anemia workup has been reviewed. 2. Elevated CEA, rule out malignancy especially colon cancer, GI following, to have egd/colo 3. Macrocytosis. If macrocytosis is likely related to hypothyroidism, may need to increase Synthroid. 4. Generalized weakness. 5. Hyperlipidemia. Subjective Date patient seen: Jul 22, 2017 Hematologic/Lymphatic: Reports: anemia Allergies: Coded Allergies: No Known Allergies (Unverified , 07/21/17) All Systems: reviewed and negative except above Objective Last 24 Hour Vital Signs Date Time Temp Pulse Resp B/P (MAP) Pulse Ox O2 Delivery O2 Flow Rate FiO2 07/23/17 12:00 55 07/23/17 11:58 97.7 75 18 140/86 98 Nasal Cannula 2.0 07/23/17 11:03 96 Nasal Cannula 2.0 07/23/17 11:03 Nasal Cannula 2.0 07/23/17 09:32 67 18 96 07/23/17 09:30 67 18 96 07/23/17 09:10 97.8 67 18 142/90 97 Nasal Cannula 2.0 07/23/17 09:02 67 16 141/95 97 Nasal Cannula 2.0 07/23/17 08:57 71 15 143/95 97 Nasal Cannula 2.0 07/23/17 08:52 97.3 71 14 156/96 96 Nasal Cannula 2.0 07/23/17 08:00 60 07/23/17 07:30 98.1 67 18 137/88 94 Nasal Cannula 2.0 07/23/17 04:48 97.7 68 16 142/72 97 07/23/17 04:00 67 07/23/17 00:49 97.5 16 146/92 94 Nasal Cannula 07/23/17 00:00 64 07/22/17 20:48 97.5 66 16 136/82 97 Nasal Cannula 2.0 07/22/17 20:00 66 07/22/17 16:00 61 07/22/17 15:52 97.9 65 18 133/89 99 Nasal Cannula 2.0 Intake and Output 07/23/17 07/24/17 19:00 07:00 Intake Total 150 ml Balance 150 ml IV Total 150 ml Laboratory Tests 07/23/17 06:30: White Blood Count 5.5, Red Blood Count 2.58L, Hemoglobin 8.6L, Hematocrit 27.5L , Mean Corpuscular Volume 106H, Mean Corpuscular Hemoglobin 33.5H, Mean Corpuscular Hemoglobin Concent 31.5L, Red Cell Distribution Width 15.1H, Platelet Count 258, Mean Platelet Volume 5.5L, Neutrophils (%) (Auto) 70.8, Lymphocytes (%) (Auto) 21.9, Monocytes (%) (Auto) 5.3, Eosinophils (%) (Auto) 1.1, Basophils (%) (Auto) 1.0, Prothrombin Time 9.8, Prothromb Time International Ratio 0.9, Sodium Level 144, Potassium Level 3.9, Chloride Level 101, Carbon Dioxide Level 35H, Anion Gap 8, Blood Urea Nitrogen 9, Creatinine 0.7, Estimat Glomerular Filtration Rate > 60, Glucose Level 90, Calcium Level 8.9, CA 19-9 Antigen 14.61 Height (Feet): 5 Height (Inches): 5.00 Weight (Pounds): 156 General Appearance: no apparent distress EENT: normal ENT inspection Neck: normal inspection Cardiovascular: no gallop/murmur 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
--- NOTE | 2017-07-23 17:30 | Procedure Note ---
DATE OF PROCEDURE: 07/23/2017 SURGEON: Imer Rubi M.D. Procedure: Colonoscopy with snare polypectomy and endoscopy with biopsy. ANESTHESIOLOGIST: Celina Gerber M.D. INSTRUMENT: Olympus adult flexible upper endoscope and colonoscope. INDICATION: Anemia with elevated CEA. The procedure, risks, benefits, and possible consequences, including hemorrhage, aspiration, perforation and infection, and alternative treatments, were explained to the patient/legal guardian by Dr. Imer Rubi and the patient/legal guardian understood and accepted these risks. Description Of Procedure: After informed consent was obtained and the patient was adequately sedated, Olympus upper endoscope was advanced from mouth into the second portion of the duodenum and retroflexion was performed in the stomach. The patient had diffuse gastritis. Random biopsy from body and antrum of the stomach was obtained to rule out H. pylori infection. The patient had 1 polyp in the distal body of the stomach. It measured roughly about 5 mm, removed with a cold biopsy forceps technique. At this time, the upper endoscope was retrieved and the patient was turned over for colonoscopy. First, a rectal exam was performed, which was normal. Then, the scope was advanced from rectum into the cecum. Quality of prep was poor. We still managed to pass the scope through and we spent a lot of time washing. I would say more than a liter of fluid was aspirated from this colon exam. The patient had a total of 4 polyps, all removed with the snare polypectomy technique, 2 in the ascending colon and 1 in the transverse and the largest one was in the descending colon. The largest one measured roughly about 9 mm. Retroflexion of rectum was performed, which showed evidence of internal hemorrhoids. SUMMARY OF FINDINGS: 1. Gastric polyps, status post biopsy. 2. Gastritis, status post biopsy. 3. Four colonic polyps removed. See above for details. 4. Internal hemorrhoids. 5. Poor colonic prep. RECOMMENDATIONS: 1. We are going to order a clemens CT given the elevated CEA of 11. 2. The patient will need another colonoscopy in 3 years. 3. Follow up biopsy results. I want to thank, Dr. Pineda Cormier, for this kind referral. Imer Kirstin Rubi DR: TIANA JOB#: [id number] CC: Pineda Cormier M.D.; Fax#: [phone]
--- NOTE | 2017-07-23 22:13 | General Progress Note ---
Assessment/Plan Assessment/Plan ASSESSMENT AND PLAN: 1. Anemia, secondary to chronic disease. Anemia workup has been reviewed. 2. Elevated CEA, rule out malignancy --> s/p egd/colo with polyectomy. Awaiting pathology report. 3. Macrocytosis 2/2 hypothyroid. The patient is on Synthroid. 4. Generalized weakness. 5. Hyperlipidemia. Subjective Hematologic/Lymphatic: Reports: anemia Allergies: Coded Allergies: No Known Allergies (Unverified , 07/21/17) All Systems: reviewed and negative except above Subjective s/p egd/colo, NAD Objective Last 24 Hour Vital Signs Date Time Temp Pulse Resp B/P (MAP) Pulse Ox O2 Delivery O2 Flow Rate FiO2 07/23/17 20:48 Nasal Cannula 2.0 28 07/23/17 20:48 98 Nasal Cannula 2.0 28 07/23/17 20:00 97.7 69 16 123/73 96 Nasal Cannula 2.5 07/23/17 16:00 59 07/23/17 15:35 96.6 66 18 127/85 98 Nasal Cannula 2.0 07/23/17 12:00 55 07/23/17 11:58 97.7 75 18 140/86 98 Nasal Cannula 2.0 07/23/17 11:03 96 Nasal Cannula 2.0 07/23/17 11:03 Nasal Cannula 2.0 07/23/17 09:32 67 18 96 07/23/17 09:30 67 18 96 07/23/17 09:10 97.8 67 18 142/90 97 Nasal Cannula 2.0 07/23/17 09:02 67 16 141/95 97 Nasal Cannula 2.0 07/23/17 08:57 71 15 143/95 97 Nasal Cannula 2.0 07/23/17 08:52 97.3 71 14 156/96 96 Nasal Cannula 2.0 07/23/17 08:00 60 07/23/17 07:30 98.1 67 18 137/88 94 Nasal Cannula 2.0 07/23/17 04:48 97.7 68 16 142/72 97 07/23/17 04:00 67 07/23/17 00:49 97.5 16 146/92 94 Nasal Cannula 07/23/17 00:00 64 Intake and Output 07/23/17 07/24/17 19:00 07:00 Intake Total 390 ml Balance 390 ml Intake Oral 240 ml IV Total 150 ml # Voids 1 Laboratory Tests 07/23/17 06:30: White Blood Count 5.5, Red Blood Count 2.58L, Hemoglobin 8.6L, Hematocrit 27.5L , Mean Corpuscular Volume 106H, Mean Corpuscular Hemoglobin 33.5H, Mean Corpuscular Hemoglobin Concent 31.5L, Red Cell Distribution Width 15.1H, Platelet Count 258, Mean Platelet Volume 5.5L, Neutrophils (%) (Auto) 70.8, Lymphocytes (%) (Auto) 21.9, Monocytes (%) (Auto) 5.3, Eosinophils (%) (Auto) 1.1, Basophils (%) (Auto) 1.0, Prothrombin Time 9.8, Prothromb Time International Ratio 0.9, Sodium Level 144, Potassium Level 3.9, Chloride Level 101, Carbon Dioxide Level 35H, Anion Gap 8, Blood Urea Nitrogen 9, Creatinine 0.7, Estimat Glomerular Filtration Rate > 60, Glucose Level 90, Calcium Level 8.9, CA 19-9 Antigen 14.61 Height (Feet): 5 Height (Inches): 5.00 Weight (Pounds): 156 General Appearance: no apparent distress EENT: TMs normal Neck: normal alignment Cardiovascular: no gallop/murmur Abdomen: normal bowel sounds 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
[2017-07-24 00:48] VITALS: BP 125/74
[2017-07-24 04:00] VITALS: BP 148/76
[2017-07-24 07:08] LABS: EOSINOPHILS % (AUTO) 0.7 % (0.0-3.0); LYMPHOCYTES % (AUTO) 26.6 % (20.0-45.0); MEAN CORPUSCULAR HEMOGLOBIN 34.3 PG (27.0-31.0); MEAN CORPUSCULAR VOLUME 107 FL (80-99); MONOCYTES % (AUTO) 5.1 % (1.0-10.0); NEUTROPHILS % (AUTO) 66.6 % (45.0-75.0); PLATELET COUNT 250 K/UL (150-450); RED BLOOD COUNT 2.44 M/UL (4.20-5.40); RED CELL DISTRIBUTION WIDTH 14.8 % (11.6-14.8); WHITE BLOOD COUNT 6.4 K/UL (4.8-10.8)
[2017-07-24 07:51] LABS: ANION GAP 7 (5-15); CALCIUM 8.6 mg/dL (8.6-10.2); CARBON DIOXIDE 36 mEQ/L (20-30); CHLORIDE 102 mEQ/L (98-107); CREATININE 0.8 mg/dL (0.5-0.9); GLOMERULAR FILTRATION RATE > 60 mL/min (>60); HEMOLYSIS 1; POTASSIUM 3.8 mEQ/L (3.4-4.9); SODIUM 145 mEQ/L (135-145)
[2017-07-24 08:08] VITALS: BP 126/86
[2017-07-24] MEDS: Pantoprazole Inj IV SCH (08:44)
[2017-07-24 11:56] VITALS: BP 131/81
[2017-07-24 13:14] LABS: OTHERS PATHOLOGIST COMMENT
[2017-07-24 15:49] VITALS: BP 117/65
--- NOTE | 2017-07-24 19:34 | General Progress Note ---
Assessment/Plan Problem List: (1) Colon polyps ICD Codes: K63.5 - Polyp of colon SNOMED: 53255022 (2) Gastritis ICD Codes: K29.70 - Gastritis, unspecified, without bleeding SNOMED: 8399014 (3) Elevated CEA ICD Codes: R97.0 - Elevated carcinoembryonic antigen [CEA] SNOMED: 77544936, 347702632 (4) Severe anemia ICD Codes: D64.9 - Anemia, unspecified SNOMED: 730287259 Assessment/Plan stable labs negative CT for malignancy s/p EGD and colonoscopy ok to dc GI stand point Subjective ROS Limited/Unobtainable: No Allergies: Coded Allergies: No Known Allergies (Unverified , 07/21/17) Objective Last 24 Hour Vital Signs Date Time Temp Pulse Resp B/P (MAP) Pulse Ox O2 Delivery O2 Flow Rate FiO2 07/24/17 16:00 75 07/24/17 15:49 97.3 78 18 117/65 97 Nasal Cannula 2.0 07/24/17 12:00 66 07/24/17 11:56 97.3 74 18 131/81 98 Nasal Cannula 2.0 07/24/17 09:00 80 07/24/17 08:08 97.7 71 18 126/86 97 Nasal Cannula 2.0 07/24/17 04:26 64 07/24/17 04:00 97.2 73 20 148/76 98 Room Air 2.0 28 07/24/17 00:48 97.5 73 16 125/74 98 Room Air 07/24/17 00:00 74 07/23/17 20:48 Nasal Cannula 2.0 28 07/23/17 20:48 98 Nasal Cannula 2.0 28 07/23/17 20:00 97.7 69 16 123/73 96 Nasal Cannula 2.5 07/23/17 19:56 73 Intake and Output 07/24/17 07/25/17 19:00 07:00 Intake Total 540 ml Balance 540 ml Intake Oral 540 ml # Voids 2 # Bowel Movements 1 Laboratory Tests 07/24/17 04:45: White Blood Count 6.4, Red Blood Count 2.44L, Hemoglobin 8.4L, Hematocrit 26.2L , Mean Corpuscular Volume 107H, Mean Corpuscular Hemoglobin 34.3H, Mean Corpuscular Hemoglobin Concent 32.0, Red Cell Distribution Width 14.8, Platelet Count 250, Mean Platelet Volume 5.0L, Neutrophils (%) (Auto) 66.6, Lymphocytes ( %) (Auto) 26.6, Monocytes (%) (Auto) 5.1, Eosinophils (%) (Auto) 0.7, Basophils (%) (Auto) 1.0, Sodium Level 145, Potassium Level 3.8, Chloride Level 102, Carbon Dioxide Level 36H, Anion Gap 7, Blood Urea Nitrogen 12, Creatinine 0.8, Estimat Glomerular Filtration Rate > 60, Glucose Level 91, Calcium Level 8.6 Height (Feet): 5 Height (Inches): 5.00 Weight (Pounds): 156 General Appearance: no apparent distress EENT: normal ENT inspection Neck: supple Cardiovascular: normal rate Respiratory/Chest: decreased breath sounds Abdomen: normal bowel sounds, non tender, soft Extremities: non-tender LEOBARDO OTTO Jul 24, 2017 19:34
[2017-07-24 20:00] VITALS: BP 127/75
--- NOTE | 2017-07-24 22:16 | General Progress Note ---
Assessment/Plan Assessment/Plan ASSESSMENT AND PLAN: 1. Anemia, secondary to chronic disease. Anemia workup has been reviewed. --> transfuse if hgb below 8 --> watch counts 2. Elevated CEA, rule out malignancy --> s/p egd/colo with polyectomy. Awaiting pathology report. 3. Macrocytosis 2/2 hypothyroid. The patient is on Synthroid. 4. Generalized weakness. 5. Hyperlipidemia. Subjective Constitutional: Reports: no symptoms HEENT: Reports: no symptoms Cardiovascular: Reports: no symptoms Respiratory: Reports: no symptoms Gastrointestinal/Abdominal: Reports: no symptoms Genitourinary: Reports: no symptoms Neurologic/Psychiatric: Reports: no symptoms Endocrine: Reports: no symptoms Hematologic/Lymphatic: Reports: no symptoms Allergies: Coded Allergies: No Known Allergies (Unverified , 07/21/17) Subjective resting, NAD, VSS Objective Last 24 Hour Vital Signs Date Time Temp Pulse Resp B/P (MAP) Pulse Ox O2 Delivery O2 Flow Rate FiO2 07/24/17 20:00 97.5 72 18 127/75 97 Nasal Cannula 2.0 28 07/24/17 20:00 68 07/24/17 16:00 75 07/24/17 15:49 97.3 78 18 117/65 97 Nasal Cannula 2.0 07/24/17 12:00 66 07/24/17 11:56 97.3 74 18 131/81 98 Nasal Cannula 2.0 07/24/17 09:00 80 07/24/17 08:08 97.7 71 18 126/86 97 Nasal Cannula 2.0 07/24/17 04:26 64 07/24/17 04:00 97.2 73 20 148/76 98 Room Air 2.0 28 07/24/17 00:48 97.5 73 16 125/74 98 Room Air 07/24/17 00:00 74 Intake and Output 07/24/17 07/25/17 19:00 07:00 Intake Total 540 ml Balance 540 ml Intake Oral 540 ml # Voids 2 # Bowel Movements 1 Laboratory Tests 07/24/17 04:45: White Blood Count 6.4, Red Blood Count 2.44L, Hemoglobin 8.4L, Hematocrit 26.2L , Mean Corpuscular Volume 107H, Mean Corpuscular Hemoglobin 34.3H, Mean Corpuscular Hemoglobin Concent 32.0, Red Cell Distribution Width 14.8, Platelet Count 250, Mean Platelet Volume 5.0L, Neutrophils (%) (Auto) 66.6, Lymphocytes ( %) (Auto) 26.6, Monocytes (%) (Auto) 5.1, Eosinophils (%) (Auto) 0.7, Basophils (%) (Auto) 1.0, Sodium Level 145, Potassium Level 3.8, Chloride Level 102, Carbon Dioxide Level 36H, Anion Gap 7, Blood Urea Nitrogen 12, Creatinine 0.8, Estimat Glomerular Filtration Rate > 60, Glucose Level 91, Calcium Level 8.6 Height (Feet): 5 Height (Inches): 5.00 Weight (Pounds): 156 General Appearance: no apparent distress EENT: normal ENT inspection Neck: normal alignment Cardiovascular: normal rate Skin: warm/dry Arturo Newton Jul 24, 2017 22:16
[2017-07-25] VITALS (7 sets, daily range): BP systolic 117–140; BP diastolic 73–86
--- NOTE | 2017-07-25 07:07 | General Progress Note ---
Assessment/Plan Problem List: (1) Generalized weakness Assessment & Plan: Due to anemia probably. Stable. ICD Codes: R53.1 - Weakness SNOMED: 48292660 (2) Hypothyroidism Assessment & Plan: Follow-up TSH. Levothyroxine dose adjusted. ICD Codes: E03.9 - Hypothyroidism, unspecified SNOMED: 38963481 (3) Elevated CEA Assessment & Plan: Malignancy w/u. ICD Codes: R97.0 - Elevated carcinoembryonic antigen [CEA] SNOMED: 99493666, 032648854 (4) Severe anemia Assessment & Plan: H/H stable. GI and heme follow-up. ICD Codes: D64.9 - Anemia, unspecified SNOMED: 763734374 (5) Gastritis Assessment & Plan: GI w/u. 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 No isolation when discharged. ICD Codes: Z22.39 - Carrier of other specified bacterial diseases SNOMED: 053982695 Subjective HEENT: Reports: no symptoms Respiratory: Reports: no symptoms Gastrointestinal/Abdominal: Reports: no symptoms Genitourinary: Reports: no symptoms Allergies: Coded Allergies: No Known Allergies (Unverified , 07/21/17) Objective Last 24 Hour Vital Signs Date Time Temp Pulse Resp B/P (MAP) Pulse Ox O2 Delivery O2 Flow Rate FiO2 07/25/17 04:02 96.8 75 20 129/74 96 Nasal Cannula 2.0 07/25/17 04:00 71 07/25/17 00:00 73 07/25/17 00:00 98.1 74 18 138/82 97 Nasal Cannula 2.0 28 07/24/17 20:00 97.5 72 18 127/75 97 Nasal Cannula 2.0 28 07/24/17 20:00 68 07/24/17 16:00 75 07/24/17 15:49 97.3 78 18 117/65 97 Nasal Cannula 2.0 07/24/17 12:00 66 07/24/17 11:56 97.3 74 18 131/81 98 Nasal Cannula 2.0 07/24/17 09:00 80 07/24/17 08:08 97.7 71 18 126/86 97 Nasal Cannula 2.0 Height (Feet): 5 Height (Inches): 5.00 Weight (Pounds): 156 General Appearance: no apparent distress Neck: non-tender Cardiovascular: normal rate Respiratory/Chest: no respiratory distress Abdomen: no mass Extremities: non-tender Edema: non-pitting Skin: warm/dry LIZETTE SANABRIA Jul 25, 2017 07:07
[2017-07-25] MEDS: Pantoprazole Inj IV SCH (08:16)
--- NOTE | 2017-07-25 13:45 | General Progress Note ---
Assessment/Plan Problem List: (1) Colon polyps ICD Codes: K63.5 - Polyp of colon SNOMED: 78149123 (2) Gastritis ICD Codes: K29.70 - Gastritis, unspecified, without bleeding SNOMED: 8378167 (3) Elevated CEA ICD Codes: R97.0 - Elevated carcinoembryonic antigen [CEA] SNOMED: 96413262, 488130154 (4) Severe anemia ICD Codes: D64.9 - Anemia, unspecified SNOMED: 033681304 Assessment/Plan stable labs negative CT for malignancy s/p EGD and colonoscopy ok to dc GI stand point Subjective ROS Limited/Unobtainable: Yes Allergies: Coded Allergies: No Known Allergies (Unverified , 07/21/17) Subjective no event Objective Last 24 Hour Vital Signs Date Time Temp Pulse Resp B/P (MAP) Pulse Ox O2 Delivery O2 Flow Rate FiO2 07/25/17 12:00 77 07/25/17 11:34 98.1 72 20 127/83 96 Nasal Cannula 2.0 07/25/17 08:02 97.3 74 20 140/86 97 Nasal Cannula 2.0 07/25/17 08:00 74 07/25/17 07:51 Nasal Cannula 2.0 28 07/25/17 07:50 98 Nasal Cannula 2.0 28 07/25/17 04:02 96.8 75 20 129/74 96 Nasal Cannula 2.0 07/25/17 04:00 71 07/25/17 00:00 73 07/25/17 00:00 98.1 74 18 138/82 97 Nasal Cannula 2.0 28 07/24/17 20:00 97.5 72 18 127/75 97 Nasal Cannula 2.0 28 07/24/17 20:00 68 07/24/17 16:00 75 07/24/17 15:49 97.3 78 18 117/65 97 Nasal Cannula 2.0 Intake and Output 07/25/17 07/26/17 19:00 07:00 Intake Total 120 ml Balance 120 ml Intake Oral 120 ml Height (Feet): 5 Height (Inches): 5.00 Weight (Pounds): 156 General Appearance: alert EENT: normal ENT inspection Neck: supple Cardiovascular: normal rate Respiratory/Chest: decreased breath sounds Abdomen: normal bowel sounds, non tender, soft Extremities: non-tender LEOBARDO OTTO Jul 25, 2017 13:44
[2017-07-25 15:50] LABS: MEAN CORPUSCULAR HEMOGLOBIN 33.9 PG (27.0-31.0); MEAN CORPUSCULAR HGB CONC 31.5 G/DL (32.0-36.0); MEAN CORPUSCULAR VOLUME 107 FL (80-99); MEAN PLATELET VOLUME 4.8 FL (6.5-10.1); PLATELET COUNT 232 K/UL (150-450); RED BLOOD COUNT 2.24 M/UL (4.20-5.40); RED CELL DISTRIBUTION WIDTH 14.6 % (11.6-14.8); WHITE BLOOD COUNT 5.7 K/UL (4.8-10.8)
[2017-07-25 16:28] LABS: BAND NEUTROPHILS % (MANUAL) 1 % (0-8); BASOPHILS % (MANUAL) 1 % (0-2); LYMPHOCYTES % (MANUAL) 21 % (20-45); NEUTROPHILS % (MANUAL) 71 % (45-75); TOTAL CELLS COUNTED 100
[2017-07-25 16:29] LABS: ANISOCYTOSIS 1+; EOSINOPHILS % (MANUAL) 0 % (0-3); PLATELET ESTIMATE ADEQUATE; POLYCHROMASIA 1+
[2017-07-25 16:30] LABS: HYPOCHROMASIA 1+; MACROCYTES 2+; PLATELET MORPHOLOGY NORMAL
[2017-07-25 16:42] LABS: ALANINE AMINOTRANSFERASE 22 U/L (12-78); ALBUMIN/GLOBULIN RATIO 0.7 (1.0-2.7); ANION GAP 5 (5-15); ASPARTATE AMINO TRANSFERASE 30 U/L (15-37); CALCIUM 8.3 MG/DL (8.5-10.1); CARBON DIOXIDE 32 MMOL/L (21-32); CHLORIDE 101 MMOL/L (98-107); CREATININE 0.8 MG/DL (0.55-1.00); GLOMERULAR FILTRATION RATE > 60 mL/min (>60); POTASSIUM 3.7 MMOL/L (3.5-5.1); SODIUM 138 MMOL/L (136-145); THYROID STIMULATING HORMONE 44.998 uiU/mL (0.360-3.740); TOTAL PROTEIN 6.2 G/DL (6.4-8.2)
--- NOTE | 2017-07-25 16:55 | General Progress Note ---
Assessment/Plan Assessment/Plan ASSESSMENT AND PLAN: 1. Anemia, secondary to chronic disease. Anemia workup has been reviewed. --> transfuse if hgb below 8, have ordered for 1 unit transfusion --> watch counts 2. Elevated CEA, rule out malignancy --> s/p egd/colo with polyectomy. Awaiting pathology report. 3. Macrocytosis 2/2 hypothyroid. The patient is on Synthroid. 4. Generalized weakness. 5. Hyperlipidemia. Subjective Constitutional: Reports: no symptoms HEENT: Reports: no symptoms Cardiovascular: Reports: no symptoms Respiratory: Reports: no symptoms Gastrointestinal/Abdominal: Reports: no symptoms Genitourinary: Reports: no symptoms Neurologic/Psychiatric: Reports: no symptoms Endocrine: Reports: no symptoms Hematologic/Lymphatic: Reports: no symptoms Allergies: Coded Allergies: No Known Allergies (Unverified , 07/21/17) Subjective afebrile, no events overnight, HH has dropped Objective Last 24 Hour Vital Signs Date Time Temp Pulse Resp B/P (MAP) Pulse Ox O2 Delivery O2 Flow Rate FiO2 07/25/17 15:54 97.9 71 18 123/81 96 Nasal Cannula 2.0 07/25/17 12:00 77 07/25/17 11:34 98.1 72 20 127/83 96 Nasal Cannula 2.0 07/25/17 08:02 97.3 74 20 140/86 97 Nasal Cannula 2.0 07/25/17 08:00 74 07/25/17 07:51 Nasal Cannula 2.0 28 07/25/17 07:50 98 Nasal Cannula 2.0 28 07/25/17 04:02 96.8 75 20 129/74 96 Nasal Cannula 2.0 07/25/17 04:00 71 07/25/17 00:00 73 07/25/17 00:00 98.1 74 18 138/82 97 Nasal Cannula 2.0 28 07/24/17 20:00 97.5 72 18 127/75 97 Nasal Cannula 2.0 28 07/24/17 20:00 68 Intake and Output 07/25/17 07/26/17 19:00 07:00 Intake Total 240 ml Balance 240 ml Intake Oral 240 ml # Voids 1 Laboratory Tests 07/25/17 15:30: White Blood Count 5.7, Red Blood Count 2.24L, Hemoglobin 7.6L, Hematocrit 24.1L , Mean Corpuscular Volume 107H, Mean Corpuscular Hemoglobin 33.9H, Mean Corpuscular Hemoglobin Concent 31.5L, Red Cell Distribution Width 14.6, Platelet Count 232, Mean Platelet Volume 4.8L, Neutrophils (%) (Auto) , Lymphocytes (%) (Auto) , Monocytes (%) (Auto) , Eosinophils (%) (Auto) , Basophils (%) (Auto) , Differential Total Cells Counted 100, Neutrophils % ( Manual) 71, Lymphocytes % (Manual) 21, Monocytes % (Manual) 6, Eosinophils % ( Manual) 0, Basophils % (Manual) 1, Band Neutrophils 1, Platelet Estimate Adequate, Platelet Morphology Normal, Polychromasia 1+, Hypochromasia 1+, Anisocytosis 1+, Macrocytosis 2+, Sodium Level 138, Potassium Level 3.7, Chloride Level 101, Carbon Dioxide Level 32, Anion Gap 5, Blood Urea Nitrogen 13 , Creatinine 0.8, Estimat Glomerular Filtration Rate > 60, Glucose Level 89, Calcium Level 8.3L, Total Bilirubin 0.3, Aspartate Amino Transf (AST/SGOT) 30, Alanine Aminotransferase (ALT/SGPT) 22, Alkaline Phosphatase 68, Total Protein 6.2L, Albumin 2.6L, Globulin 3.6, Albumin/Globulin Ratio 0.7L, Thyroid Stimulating Hormone (TSH) 44.998H, Free Thyroxine 0.74 Height (Feet): 5 Height (Inches): 5.00 Weight (Pounds): 156 General Appearance: no apparent distress EENT: normal ENT inspection Neck: normal alignment Cardiovascular: regular rhythm Respiratory/Chest: normal breath sounds Abdomen: no organomegaly Extremities: non-tender Skin: warm/dry Arturo Newton Jul 25, 2017 16:55
--- NOTE | 2017-07-25 17:30 | Consultation ---
DATE OF CONSULTATION: 07/25/2017 CONSULTING PHYSICIAN: Layton Srinivasan M.D. REFERRING PHYSICIAN: Pineda Cormier M.D. REASON FOR CONSULTATION: Hypothyroidism. History Of Present Illness: The patient is a 66-year-old female, who was brought in by paramedics for abnormal laboratory testing. The patient was found to have a low hemoglobin and a high TSH, has a prior history of hypothyroidism, and she was taking levothyroxine 75 mcg, complains is questionable. Endocrinology was consulted in order to assist in the management of hypothyroidism. PAST MEDICAL HISTORY: 1. Dementia. 2. Alzheimer disease. 3. Hypothyroidism. 4. Elevated CEA. 5. Hepatitis. PAST SURGICAL HISTORY: Unknown. MEDICATIONS: Reviewed and reconciled. ALLERGIES TO MEDICATIONS: None. REVIEW OF SYSTEMS: Difficult to obtain. PHYSICAL EXAMINATION: GENERAL: The patient is arousable. Vital Signs: Blood pressure is 120/80, pulse of 80, temperature of 98.2, and respiratory rate of 18. HEENT: Pupils are equal and reactive to light. Sclerae are anicteric. NECK: No JVD. HEART: Regular. LUNGS: Clear. ABDOMEN: Positive bowel sounds. EXTREMITIES: No clubbing or cyanosis. Positive for edema. Laboratory Values: WBC 6, hemoglobin 8, hematocrit 26, and platelets of 250,000. Sodium 145, potassium 3.8, chloride 103, bicarbonate 36, BUN 12, and creatinine 0.8. TSH of 53 and free T4 of 0.53. DIAGNOSES: 1. Anemia of chronic kidney disease. 2. Elevated CEA. 3. Hypothyroidism. 4. Macrocytosis, most likely secondary to hypothyroidism. 5. Hyperlipidemia. Plan: As an outpatient, the patient was on levothyroxine 75 mcg. According to the weight, I will increase the dose to 100 mcg daily. TSH would be followed in 2 weeks to make sure that it is trending down. Free T4 is also low and should be repeated in 2 weeks. We will follow the patient during the hospital stay. Thank you, Dr. Cormier, for requesting this consultation. Layton Srinivasan M.D. : AJIT/SHAMAR JOB#: [id number] CC:
[2017-07-26 04:00] VITALS: BP 133/84
[2017-07-26 08:03] VITALS: BP 142/90
[2017-07-26] MEDS: Pantoprazole Inj IV SCH (09:47)
--- NOTE | 2017-07-26 10:57 | GI Progress Note ---
Assessment/Plan Problems: (1) Colon polyps ICD Codes: K63.5 - Polyp of colon SNOMED: 20778997 (2) Gastritis ICD Codes: K29.70 - Gastritis, unspecified, without bleeding SNOMED: 6232781 (3) Severe anemia ICD Codes: D64.9 - Anemia, unspecified SNOMED: 661296500 (4) Elevated CEA ICD Codes: R97.0 - Elevated carcinoembryonic antigen [CEA] SNOMED: 66834854, 629067306 (5) Hypoalbuminemia ICD Codes: E88.09 - Other disorders of plasma-protein metabolism, not elsewhere classified SNOMED: 290892564 (6) Hypothyroidism ICD Codes: E03.9 - Hypothyroidism, unspecified SNOMED: 68031965 (7) Generalized weakness ICD Codes: R53.1 - Weakness SNOMED: 28180202 Status: stable Status Narrative Discussed with Dr. Rubi. Assessment/Plan stable labs negative CT for malignancy s/p EGD and colonoscopy ok to dc GI stand point Subjective Subjective limited Objective Last 24 Hour Vital Signs Date Time Temp Pulse Resp B/P (MAP) Pulse Ox O2 Delivery O2 Flow Rate FiO2 07/26/17 09:42 96 Nasal Cannula 3.0 32 07/26/17 09:42 Nasal Cannula 3.0 32 07/26/17 08:03 97.9 63 18 142/90 95 Nasal Cannula 2.0 07/26/17 04:00 58 07/26/17 04:00 97.3 63 20 133/84 95 Nasal Cannula 2.0 07/26/17 01:00 65 07/25/17 23:41 97.9 66 18 117/73 96 Nasal Cannula 07/25/17 20:29 97.9 77 18 136/74 98 Nasal Cannula 07/25/17 20:00 82 07/25/17 19:30 98 Nasal Cannula 2.0 28 07/25/17 19:30 Nasal Cannula 2.0 28 07/25/17 16:00 70 07/25/17 15:54 97.9 71 18 123/81 96 Nasal Cannula 2.0 07/25/17 12:00 77 07/25/17 11:34 98.1 72 20 127/83 96 Nasal Cannula 2.0 Intake and Output 07/26/17 07/27/17 19:00 07:00 Intake Total 240 ml Balance 240 ml Intake Oral 240 ml Laboratory Tests Test 07/25/17 15:30 White Blood Count 5.7 K/UL (4.8-10.8) Red Blood Count 2.24 M/UL (4.20-5.40) L Hemoglobin 7.6 G/DL (12.0-16.0) L Hematocrit 24.1 % (37.0-47.0) L Mean Corpuscular Volume 107 FL (80-99) H Mean Corpuscular Hemoglobin 33.9 PG (27.0-31.0) H Mean Corpuscular Hemoglobin Concent 31.5 G/DL (32.0-36.0) L Red Cell Distribution Width 14.6 % (11.6-14.8) Platelet Count 232 K/UL (150-450) Mean Platelet Volume 4.8 FL (6.5-10.1) L Neutrophils (%) (Auto) % (45.0-75.0) Lymphocytes (%) (Auto) % (20.0-45.0) Monocytes (%) (Auto) % (1.0-10.0) Eosinophils (%) (Auto) % (0.0-3.0) Basophils (%) (Auto) % (0.0-2.0) Differential Total Cells Counted 100 Neutrophils % (Manual) 71 % (45-75) Lymphocytes % (Manual) 21 % (20-45) Monocytes % (Manual) 6 % (1-10) Eosinophils % (Manual) 0 % (0-3) Basophils % (Manual) 1 % (0-2) Band Neutrophils 1 % (0-8) Platelet Estimate Adequate Platelet Morphology Normal Polychromasia 1+ Hypochromasia 1+ Anisocytosis 1+ Macrocytosis 2+ Sodium Level 138 MMOL/L (136-145) Potassium Level 3.7 MMOL/L (3.5-5.1) Chloride Level 101 MMOL/L (98-107) Carbon Dioxide Level 32 MMOL/L (21-32) Anion Gap 5 (5-15) Blood Urea Nitrogen 13 mg/dL (7-18) Creatinine 0.8 MG/DL (0.55-1.00) Estimat Glomerular Filtration Rate > 60 mL/min (>60) Glucose Level 89 MG/DL (74-106) Calcium Level 8.3 MG/DL (8.5-10.1) L Total Bilirubin 0.3 MG/DL (0.2-1.0) Aspartate Amino Transf (AST/SGOT) 30 U/L (15-37) Alanine Aminotransferase (ALT/SGPT) 22 U/L (12-78) Alkaline Phosphatase 68 U/L (46-116) Total Protein 6.2 G/DL (6.4-8.2) L Albumin 2.6 G/DL (3.4-5.0) L Globulin 3.6 g/dL Albumin/Globulin Ratio 0.7 (1.0-2.7) L Thyroid Stimulating Hormone (TSH) 44.998 uiU/mL (0.360-3.740) Free Thyroxine 0.74 NG/DL (0.10-1.46) Height (Feet): 5 Height (Inches): 5.00 Weight (Pounds): 156 General Appearance: no apparent distress, alert Cardiovascular: normal rate Respiratory/Chest: normal breath sounds, no respiratory distress, other - NC Abdominal Exam: soft Emmy Guthrie N.P. Jul 26, 2017 10:57
[2017-07-26 11:52] VITALS: BP 140/82
[2017-07-26 15:46] LABS: BASOPHILS % (AUTO) 1.1 % (0.0-2.0); EOSINOPHILS % (AUTO) 1.1 % (0.0-3.0); LYMPHOCYTES % (AUTO) 24.8 % (20.0-45.0); MEAN CORPUSCULAR HEMOGLOBIN 31.6 PG (27.0-31.0); MEAN CORPUSCULAR HGB CONC 30.7 G/DL (32.0-36.0); MEAN CORPUSCULAR VOLUME 103 FL (80-99); MONOCYTES % (AUTO) 5.8 % (1.0-10.0); NEUTROPHILS % (AUTO) 67.3 % (45.0-75.0); PLATELET COUNT 229 K/UL (150-450); RED BLOOD COUNT 2.92 M/UL (4.20-5.40); RED CELL DISTRIBUTION WIDTH 15.5 % (11.6-14.8); WHITE BLOOD COUNT 6.2 K/UL (4.8-10.8)
--- NOTE | 2017-07-26 15:54 | Cardiac Electrophysiology PN ---
Subjective Subjective Cardiology consult Dictated [id number] Objective Last 24 Hour Vital Signs Date Time Temp Pulse Resp B/P (MAP) Pulse Ox O2 Delivery O2 Flow Rate FiO2 07/26/17 12:59 65 07/26/17 11:52 98.1 71 18 140/82 96 Room Air 07/26/17 09:42 96 Nasal Cannula 3.0 32 07/26/17 09:42 Nasal Cannula 3.0 32 07/26/17 09:00 59 07/26/17 08:03 97.9 63 18 142/90 95 Nasal Cannula 2.0 07/26/17 04:00 58 07/26/17 04:00 97.3 63 20 133/84 95 Nasal Cannula 2.0 07/26/17 01:00 65 07/25/17 23:41 97.9 66 18 117/73 96 Nasal Cannula 07/25/17 20:29 97.9 77 18 136/74 98 Nasal Cannula 07/25/17 20:00 82 07/25/17 19:30 98 Nasal Cannula 2.0 28 07/25/17 19:30 Nasal Cannula 2.0 28 07/25/17 16:00 70 07/25/17 15:54 97.9 71 18 123/81 96 Nasal Cannula 2.0 Intake and Output 07/26/17 07/27/17 19:00 07:00 Intake Total 600 ml Balance 600 ml Intake Oral 600 ml # Voids 2 Laboratory Tests Test 07/26/17 15:32 White Blood Count Pending Red Blood Count Pending Hemoglobin Pending Hematocrit Pending Mean Corpuscular Volume Pending Mean Corpuscular Hemoglobin Pending Mean Corpuscular Hemoglobin Concent Pending Red Cell Distribution Width Pending Platelet Count Pending Mean Platelet Volume Pending Neutrophils (%) (Auto) Pending Lymphocytes (%) (Auto) Pending Monocytes (%) (Auto) Pending Eosinophils (%) (Auto) Pending Basophils (%) (Auto) Pending Sodium Level Pending Potassium Level Pending Chloride Level Pending Carbon Dioxide Level Pending Blood Urea Nitrogen Pending Creatinine Pending Estimat Glomerular Filtration Rate Pending Glucose Level Pending Calcium Level Pending ALEKSANDAR MONDRAGON Jul 26, 2017 15:54
[2017-07-26 16:00] VITALS: BP_SYST 119; BP_SYST 124; BP_SYST 147; BP_DIAS 70; BP_DIAS 76; BP_DIAS 85
[2017-07-26 16:13] LABS: ANION GAP 4 (5-15); CALCIUM 8.7 MG/DL (8.5-10.1); CARBON DIOXIDE 32 MMOL/L (21-32); CHLORIDE 105 MMOL/L (98-107); CREATININE 0.7 MG/DL (0.55-1.30); GLOMERULAR FILTRATION RATE > 60 mL/min (>60); POTASSIUM 3.6 MMOL/L (3.5-5.1); SODIUM 141 MMOL/L (136-145)
[2017-07-26] MEDS ORDERED: NS 275ml ONE (18:49)
[2017-07-26] MEDS ORDERED: Tubing Blood Filter IV ONE (18:49)
--- NOTE | 2017-07-26 19:15 | General Progress Note ---
Assessment/Plan Problem List: (1) Hypothyroidism ICD Codes: E03.9 - Hypothyroidism, unspecified SNOMED: 69613906 (2) Generalized weakness ICD Codes: R53.1 - Weakness SNOMED: 42903728 (3) Bradycardia ICD Codes: R00.1 - Bradycardia, unspecified SNOMED: 62859696 Assessment/Plan TSH is improving continue Levothyroxine 100 mcg daily repeat TSH, free T4 in 3 weeks Subjective ROS Limited/Unobtainable: Yes Allergies: Coded Allergies: No Known Allergies (Unverified , 07/21/17) Subjective events noted - interval notes reviewed Objective Last 24 Hour Vital Signs Date Time Temp Pulse Resp B/P (MAP) Pulse Ox O2 Delivery O2 Flow Rate FiO2 07/26/17 16:12 63 07/26/17 16:00 97.9 63 18 124/76 96 Nasal Cannula 2.0 07/26/17 12:59 65 07/26/17 11:52 98.1 71 18 140/82 96 Room Air 07/26/17 09:42 96 Nasal Cannula 3.0 32 07/26/17 09:42 Nasal Cannula 3.0 32 07/26/17 09:00 59 07/26/17 08:03 97.9 63 18 142/90 95 Nasal Cannula 2.0 07/26/17 04:00 58 07/26/17 04:00 97.3 63 20 133/84 95 Nasal Cannula 2.0 07/26/17 01:00 65 07/25/17 23:41 97.9 66 18 117/73 96 Nasal Cannula 07/25/17 20:29 97.9 77 18 136/74 98 Nasal Cannula 07/25/17 20:00 82 07/25/17 19:30 98 Nasal Cannula 2.0 28 07/25/17 19:30 Nasal Cannula 2.0 28 Intake and Output 07/26/17 07/27/17 19:00 07:00 Intake Total 600 ml Balance 600 ml Intake Oral 600 ml # Voids 5 # Bowel Movements 1 Laboratory Tests 07/26/17 15:32: White Blood Count 6.2, Red Blood Count 2.92L, Hemoglobin 9.2L, Hematocrit 30.1L , Mean Corpuscular Volume 103H, Mean Corpuscular Hemoglobin 31.6H, Mean Corpuscular Hemoglobin Concent 30.7L, Red Cell Distribution Width 15.5H, Platelet Count 229, Mean Platelet Volume 5.0L, Neutrophils (%) (Auto) 67.3, Lymphocytes (%) (Auto) 24.8, Monocytes (%) (Auto) 5.8, Eosinophils (%) (Auto) 1.1, Basophils (%) (Auto) 1.1, Sodium Level 141, Potassium Level 3.6, Chloride Level 105, Carbon Dioxide Level 32, Anion Gap 4L, Blood Urea Nitrogen 13, Creatinine 0.7, Estimat Glomerular Filtration Rate > 60, Glucose Level 120H, Calcium Level 8.7 Height (Feet): 5 Height (Inches): 5.00 Weight (Pounds): 156 General Appearance: no apparent distress EENT: pale conjunctivae Neck: normal alignment Cardiovascular: regular rhythm Respiratory/Chest: lungs clear Objective Current Medications Medications (Trade) Dose Ordered Sig/Amrani Route PRN Reason Start Time Stop Time Status Last Admin Dose Admin Acetaminophen (Tylenol) 650 mg Q4H PRN ORAL Mild Pain (Pain Scale 1-3) 07/21/17 22:45 08/20/17 22:44 Dextrose (Dextrose 50%) STAT PRN IV Hypoglycemia 07/21/17 22:45 08/20/17 22:44 Levothyroxine Sodium (Synthroid) 100 mcg DAILY@0630 ORAL 07/25/17 06:30 08/24/17 06:29 07/26/17 05:43 Ondansetron HCl (Zofran) 4 mg Q6H PRN IVP Nausea & Vomiting 07/21/17 22:45 08/20/17 22:44 Pantoprazole (Protonix) 40 mg DAILY IV 07/22/17 09:00 08/21/17 08:59 07/26/17 09:47 DAGOBERTO ANN Jul 26, 2017 19:15
[2017-07-26 20:00] VITALS: BP 130/76
--- NOTE | 2017-07-26 20:40 | General Progress Note ---
Assessment/Plan Problem List: (1) Generalized weakness ICD Codes: R53.1 - Weakness SNOMED: 46582580 (2) Hypothyroidism ICD Codes: E03.9 - Hypothyroidism, unspecified SNOMED: 15820113 (3) Elevated CEA ICD Codes: R97.0 - Elevated carcinoembryonic antigen [CEA] SNOMED: 90084805, 009422555 (4) Severe anemia ICD Codes: D64.9 - Anemia, unspecified SNOMED: 167288838 Status: stable Assessment/Plan anemia w colon polyp dr milton did polypectomy and sent it for biopsy elev tsh hypothyroid has bradycardia consulted dr betancur for bradycardia afebrile Subjective ROS Limited/Unobtainable: Yes Allergies: Coded Allergies: No Known Allergies (Unverified , 07/21/17) Objective Last 24 Hour Vital Signs Date Time Temp Pulse Resp B/P (MAP) Pulse Ox O2 Delivery O2 Flow Rate FiO2 07/26/17 16:12 63 07/26/17 16:00 97.9 63 18 124/76 96 Nasal Cannula 2.0 07/26/17 12:59 65 07/26/17 11:52 98.1 71 18 140/82 96 Room Air 07/26/17 09:42 96 Nasal Cannula 3.0 32 07/26/17 09:42 Nasal Cannula 3.0 32 07/26/17 09:00 59 07/26/17 08:03 97.9 63 18 142/90 95 Nasal Cannula 2.0 07/26/17 04:00 58 07/26/17 04:00 97.3 63 20 133/84 95 Nasal Cannula 2.0 07/26/17 01:00 65 07/25/17 23:41 97.9 66 18 117/73 96 Nasal Cannula Intake and Output 07/26/17 07/27/17 19:00 07:00 Intake Total 600 ml Balance 600 ml Intake Oral 600 ml # Voids 5 # Bowel Movements 1 Laboratory Tests 07/26/17 15:32: White Blood Count 6.2, Red Blood Count 2.92L, Hemoglobin 9.2L, Hematocrit 30.1L , Mean Corpuscular Volume 103H, Mean Corpuscular Hemoglobin 31.6H, Mean Corpuscular Hemoglobin Concent 30.7L, Red Cell Distribution Width 15.5H, Platelet Count 229, Mean Platelet Volume 5.0L, Neutrophils (%) (Auto) 67.3, Lymphocytes (%) (Auto) 24.8, Monocytes (%) (Auto) 5.8, Eosinophils (%) (Auto) 1.1, Basophils (%) (Auto) 1.1, Sodium Level 141, Potassium Level 3.6, Chloride Level 105, Carbon Dioxide Level 32, Anion Gap 4L, Blood Urea Nitrogen 13, Creatinine 0.7, Estimat Glomerular Filtration Rate > 60, Glucose Level 120H, Calcium Level 8.7 Height (Feet): 5 Height (Inches): 5.00 Weight (Pounds): 156 Cardiovascular: normal rate Respiratory/Chest: lungs clear Pineda Cormier MD Jul 26, 2017 20:40
--- NOTE | 2017-07-26 21:59 | General Progress Note ---
Assessment/Plan Assessment/Plan ASSESSMENT AND PLAN: 1. Anemia, secondary to chronic disease. Anemia workup has been reviewed. --> transfuse if hgb below 8 --> watch counts 2. Elevated CEA, rule out malignancy --> s/p egd/colo with polyectomy.Have reviewed pathology report. Negative for carcinoma 3. Macrocytosis 2/2 hypothyroid. The patient is on Synthroid. 4. Generalized weakness. 5. Hyperlipidemia. Subjective Constitutional: Reports: no symptoms HEENT: Reports: no symptoms Cardiovascular: Reports: no symptoms Respiratory: Reports: no symptoms Gastrointestinal/Abdominal: Reports: no symptoms Genitourinary: Reports: no symptoms Neurologic/Psychiatric: Reports: no symptoms Endocrine: Reports: no symptoms Hematologic/Lymphatic: Reports: anemia Allergies: Coded Allergies: No Known Allergies (Unverified , 07/21/17) Subjective s/p transfusion Objective Last 24 Hour Vital Signs Date Time Temp Pulse Resp B/P (MAP) Pulse Ox O2 Delivery O2 Flow Rate FiO2 07/26/17 20:00 59 07/26/17 20:00 97.9 63 12 130/76 96 Nasal Cannula 2.0 07/26/17 16:12 63 07/26/17 16:00 97.9 63 18 124/76 96 Nasal Cannula 2.0 07/26/17 12:59 65 07/26/17 11:52 98.1 71 18 140/82 96 Room Air 07/26/17 09:42 96 Nasal Cannula 3.0 32 07/26/17 09:42 Nasal Cannula 3.0 32 07/26/17 09:00 59 07/26/17 08:03 97.9 63 18 142/90 95 Nasal Cannula 2.0 07/26/17 04:00 58 07/26/17 04:00 97.3 63 20 133/84 95 Nasal Cannula 2.0 07/26/17 01:00 65 07/25/17 23:41 97.9 66 18 117/73 96 Nasal Cannula Intake and Output 07/26/17 07/27/17 19:00 07:00 Intake Total 600 ml Balance 600 ml Intake Oral 600 ml # Voids 5 # Bowel Movements 1 Laboratory Tests 07/26/17 15:32: White Blood Count 6.2, Red Blood Count 2.92L, Hemoglobin 9.2L, Hematocrit 30.1L , Mean Corpuscular Volume 103H, Mean Corpuscular Hemoglobin 31.6H, Mean Corpuscular Hemoglobin Concent 30.7L, Red Cell Distribution Width 15.5H, Platelet Count 229, Mean Platelet Volume 5.0L, Neutrophils (%) (Auto) 67.3, Lymphocytes (%) (Auto) 24.8, Monocytes (%) (Auto) 5.8, Eosinophils (%) (Auto) 1.1, Basophils (%) (Auto) 1.1, Sodium Level 141, Potassium Level 3.6, Chloride Level 105, Carbon Dioxide Level 32, Anion Gap 4L, Blood Urea Nitrogen 13, Creatinine 0.7, Estimat Glomerular Filtration Rate > 60, Glucose Level 120H, Calcium Level 8.7 Height (Feet): 5 Height (Inches): 5.00 Weight (Pounds): 156 General Appearance: no apparent distress EENT: normal ENT inspection Neck: normal alignment Cardiovascular: normal rate Extremities: non-tender 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
[2017-07-27] VITALS: BP 126/78
--- NOTE | 2017-07-27 02:00 | Consultation ---
DATE OF CONSULTATION: 07/26/2017 CARDIOLOGY CONSULTATION REFERRING PHYSICIAN: Pineda Cormier M.D. REASON FOR CONSULTATION: Bradycardia. HISTORY OF PRESENT ILLNESS: The patient is a 66-year-old lady with history of anemia, Alzheimer's dementia, and hypothyroidism, presents to [facility] for high TSH. The patient has a history of hepatitis and noted to have elevated CEA as well as anemia. The patient underwent subsequent EGD and colonoscopy by Dr. Rubi and was evaluated also by Dr. Arturo Newton. Cardiology consultation was obtained for bradycardia, heart rate in the low 50s. REVIEW OF SYSTEMS: Review of systems was negative other than what was mentioned in the history of present illness. PAST MEDICAL HISTORY: 1. Alzheimer's dementia. 2. Hypothyroidism. 3. Anemia. 4. Hyperlipidemia. ALLERGIES: She has no known drug allergies. SOCIAL HISTORY: She lives at home. Does not smoke or drink alcohol. FAMILY HISTORY: Noncontributory. PHYSICAL EXAMINATION: VITAL SIGNS: Blood pressure of 140/82, pulse 71, respirations 18, and temperature 98.1 degrees. HEAD AND NECK: Showed no JVD. LUNGS: Clear. CARDIOVASCULAR: Regular S1 and S2 with no gallop or murmur. ABDOMEN: Soft. EXTREMITIES: No pitting edema. LABORATORY AND DIAGNOSTIC DATA: Her EKG showed sinus rhythm at a rate of 65 with poor R-wave progression. The telemetry strip showed episode of bradycardia, heart rate dropping to low 50s. Her labs show white count of 5.7, hemoglobin 7.6, hematocrit 24.1, and platelet count 232. Sodium 138, potassium 3.7, BUN of 13, creatinine of 0.8, and glucose of 89. TSH is 45 and initially was 53. Free T4 is 0.53. Troponin is negative. ASSESSMENT AND PLAN: 1. Bradycardia due to hypothyroidism with a high thyroid stimulating hormone and low T4. The patient was already started on Synthroid [address] Srinivasan. Consider to watch the patient on telemetry and get an echocardiogram for further evaluation. 2. Elevated CEA and anemia. The patient underwent an esophagogastroduodenoscopy and colonoscopy by Dr. Rubi that showed gastritis and polyps. Pathology result is pending. 3. Dementia. Thank you very much, Dr. Cormier, for allowing me to participate in the care of this patient. Please do not hesitate to contact me for any questions regarding my evaluation. Juan Forbes M.D. DR: JENNIFER JOB#: [id number] CC:
[2017-07-27 04:00] VITALS: BP 136/84
--- NOTE | 2017-07-27 06:13 | General Progress Note ---
Assessment/Plan Problem List: (1) Hypothyroidism ICD Codes: E03.9 - Hypothyroidism, unspecified SNOMED: 51271954 (2) Generalized weakness ICD Codes: R53.1 - Weakness SNOMED: 28716097 (3) Bradycardia ICD Codes: R00.1 - Bradycardia, unspecified SNOMED: 15859770 Assessment/Plan TSH is improving continue Levothyroxine 100 mcg daily repeat TSH, free T4 in 3 weeks I will sign off Subjective ROS Limited/Unobtainable: Yes Allergies: Coded Allergies: No Known Allergies (Unverified , 07/21/17) Subjective events noted - interval notes reviewed Objective Last 24 Hour Vital Signs Date Time Temp Pulse Resp B/P (MAP) Pulse Ox O2 Delivery O2 Flow Rate FiO2 07/27/17 04:00 97.9 62 14 136/84 98 Nasal Cannula 2.0 07/27/17 04:00 53 07/27/17 00:00 97.3 64 12 126/78 95 Nasal Cannula 2.0 07/27/17 00:00 63 07/26/17 20:00 59 07/26/17 20:00 97.9 63 12 130/76 96 Nasal Cannula 2.0 07/26/17 19:30 Nasal Cannula 2.0 28 07/26/17 19:30 95 Nasal Cannula 2.0 28 07/26/17 16:12 63 07/26/17 16:00 97.9 63 18 124/76 96 Nasal Cannula 2.0 07/26/17 12:59 65 07/26/17 11:52 98.1 71 18 140/82 96 Room Air 07/26/17 09:42 96 Nasal Cannula 3.0 32 07/26/17 09:42 Nasal Cannula 3.0 32 07/26/17 09:00 59 07/26/17 08:03 97.9 63 18 142/90 95 Nasal Cannula 2.0 Laboratory Tests 07/26/17 15:32: White Blood Count 6.2, Red Blood Count 2.92L, Hemoglobin 9.2L, Hematocrit 30.1L , Mean Corpuscular Volume 103H, Mean Corpuscular Hemoglobin 31.6H, Mean Corpuscular Hemoglobin Concent 30.7L, Red Cell Distribution Width 15.5H, Platelet Count 229, Mean Platelet Volume 5.0L, Neutrophils (%) (Auto) 67.3, Lymphocytes (%) (Auto) 24.8, Monocytes (%) (Auto) 5.8, Eosinophils (%) (Auto) 1.1, Basophils (%) (Auto) 1.1, Sodium Level 141, Potassium Level 3.6, Chloride Level 105, Carbon Dioxide Level 32, Anion Gap 4L, Blood Urea Nitrogen 13, Creatinine 0.7, Estimat Glomerular Filtration Rate > 60, Glucose Level 120H, Calcium Level 8.7 Height (Feet): 5 Height (Inches): 5.00 Weight (Pounds): 156 General Appearance: no apparent distress Neck: normal alignment Cardiovascular: normal rate Respiratory/Chest: lungs clear Abdomen: normal bowel sounds Objective Item Value Date Time Glucose Level 120 MG/DL H 07/26/17 1532 Current Medications Medications (Trade) Dose Ordered Sig/Armani Route PRN Reason Start Time Stop Time Status Last Admin Dose Admin Acetaminophen (Tylenol) 650 mg Q4H PRN ORAL Mild Pain (Pain Scale 1-3) 07/21/17 22:45 08/20/17 22:44 Dextrose (Dextrose 50%) STAT PRN IV Hypoglycemia 07/21/17 22:45 08/20/17 22:44 Levothyroxine Sodium (Synthroid) 100 mcg DAILY@0630 ORAL 07/25/17 06:30 08/24/17 06:29 07/26/17 05:43 Ondansetron HCl (Zofran) 4 mg Q6H PRN IVP Nausea & Vomiting 07/21/17 22:45 08/20/17 22:44 Pantoprazole (Protonix) 40 mg DAILY IV 07/22/17 09:00 08/21/17 08:59 07/26/17 09:47 DAGOBERTO ANN Jul 27, 2017 06:13
[2017-07-27 08:00] VITALS: BP 140/81
[2017-07-27 08:04] LABS: BASOPHILS % (AUTO) 1.2 % (0.0-2.0); EOSINOPHILS % (AUTO) 1.2 % (0.0-3.0); LYMPHOCYTES % (AUTO) 26.2 % (20.0-45.0); MEAN CORPUSCULAR HEMOGLOBIN 33.4 PG (27.0-31.0); MEAN CORPUSCULAR HGB CONC 32.3 G/DL (32.0-36.0); MEAN CORPUSCULAR VOLUME 103 FL (80-99); MEAN PLATELET VOLUME 5.3 FL (6.5-10.1); MONOCYTES % (AUTO) 5.8 % (1.0-10.0); NEUTROPHILS % (AUTO) 65.6 % (45.0-75.0); PLATELET COUNT 235 K/UL (150-450); RED BLOOD COUNT 3.34 M/UL (4.20-5.40); RED CELL DISTRIBUTION WIDTH 15.1 % (11.6-14.8); WHITE BLOOD COUNT 5.1 K/UL (4.8-10.8)
[2017-07-27] MEDS: Pantoprazole Inj IV SCH (08:20)
[2017-07-27 08:37] LABS: ANION GAP 5 (5-15); CALCIUM 8.5 MG/DL (8.5-10.1); CARBON DIOXIDE 34 MMOL/L (21-32); CHLORIDE 105 MMOL/L (98-107); CREATININE 0.8 MG/DL (0.55-1.30); GLOMERULAR FILTRATION RATE > 60 mL/min (>60); POTASSIUM 4.2 MMOL/L (3.5-5.1); SODIUM 143 MMOL/L (136-145)
[2017-07-27] MEDS ORDERED: TYLENOL650 MG PR (08:49)
[2017-07-27] MEDS ORDERED: LEVOTHYROXINE200 MCG PO (08:53)
[2017-07-27] MEDS ORDERED: ONDANSETRON4 MG/2 M2 IVP (08:55)
[2017-07-27] MEDS ORDERED: PANTOPRAZOLE SO40 MG IV (08:56)
[2017-07-27] MEDS ORDERED: ATROPINE S0.4 MG/1 M IV (09:00)
[2017-07-27] MEDS ORDERED: ACETAMINOPHEN325 M1 ORAL (09:06)
[2017-07-27] MEDS ORDERED: BISACODYL10 M1 PO (09:06)
[2017-07-27] MEDS ORDERED: LEVOTHYROXINE100 MCG ORAL (09:08)
[2017-07-27] MEDS ORDERED: PROTONIX IV40 MG IV (09:10)
[2017-07-27 11:53] VITALS: BP 138/88
--- NOTE | 2017-07-27 14:52 | GI Progress Note ---
Assessment/Plan Problems: (1) Colon polyps ICD Codes: K63.5 - Polyp of colon SNOMED: 17949520 (2) Gastritis ICD Codes: K29.70 - Gastritis, unspecified, without bleeding SNOMED: 7959737 (3) Severe anemia ICD Codes: D64.9 - Anemia, unspecified SNOMED: 358649374 (4) Elevated CEA ICD Codes: R97.0 - Elevated carcinoembryonic antigen [CEA] SNOMED: 21046577, 776640185 (5) Hypoalbuminemia ICD Codes: E88.09 - Other disorders of plasma-protein metabolism, not elsewhere classified SNOMED: 915592406 (6) Hypothyroidism ICD Codes: E03.9 - Hypothyroidism, unspecified SNOMED: 85387520 (7) Generalized weakness ICD Codes: R53.1 - Weakness SNOMED: 48813511 Status: stable Status Narrative Discussed with Dr. Rubi. Assessment/Plan stable labs negative CT for malignancy s/p EGD and colonoscopy ok to dc GI stand point Subjective Subjective limited Objective Last 24 Hour Vital Signs Date Time Temp Pulse Resp B/P (MAP) Pulse Ox O2 Delivery O2 Flow Rate FiO2 07/27/17 11:53 97.7 65 19 138/88 98 Nasal Cannula 2.0 07/27/17 08:00 63 07/27/17 08:00 97.5 61 20 140/81 98 Nasal Cannula 2.0 07/27/17 07:47 96 Nasal Cannula 2.0 28 07/27/17 07:47 Nasal Cannula 2.0 28 07/27/17 04:00 97.9 62 14 136/84 98 Nasal Cannula 2.0 07/27/17 04:00 53 07/27/17 00:00 97.3 64 12 126/78 95 Nasal Cannula 2.0 07/27/17 00:00 63 07/26/17 20:00 59 07/26/17 20:00 97.9 63 12 130/76 96 Nasal Cannula 2.0 07/26/17 19:30 Nasal Cannula 2.0 28 07/26/17 19:30 95 Nasal Cannula 2.0 28 07/26/17 16:12 63 07/26/17 16:00 97.9 63 18 124/76 96 Nasal Cannula 2.0 Intake and Output 07/27/17 07/28/17 19:00 07:00 Intake Total 240 ml Balance 240 ml Intake Oral 240 ml # Voids 2 # Bowel Movements 1 Laboratory Tests Test 07/26/17 15:32 07/27/17 07:40 White Blood Count 6.2 K/UL (4.8-10.8) 5.1 K/UL (4.8-10.8) Red Blood Count 2.92 M/UL (4.20-5.40) L 3.34 M/UL (4.20-5.40) L Hemoglobin 9.2 G/DL (12.0-16.0) L 11.1 G/DL (12.0-16.0) L Hematocrit 30.1 % (37.0-47.0) L 34.5 % (37.0-47.0) L Mean Corpuscular Volume 103 FL (80-99) H 103 FL (80-99) H Mean Corpuscular Hemoglobin 31.6 PG (27.0-31.0) H 33.4 PG (27.0-31.0) H Mean Corpuscular Hemoglobin Concent 30.7 G/DL (32.0-36.0) L 32.3 G/DL (32.0-36.0) Red Cell Distribution Width 15.5 % (11.6-14.8) H 15.1 % (11.6-14.8) H Platelet Count 229 K/UL (150-450) 235 K/UL (150-450) Mean Platelet Volume 5.0 FL (6.5-10.1) L 5.3 FL (6.5-10.1) L Neutrophils (%) (Auto) 67.3 % (45.0-75.0) 65.6 % (45.0-75.0) Lymphocytes (%) (Auto) 24.8 % (20.0-45.0) 26.2 % (20.0-45.0) Monocytes (%) (Auto) 5.8 % (1.0-10.0) 5.8 % (1.0-10.0) Eosinophils (%) (Auto) 1.1 % (0.0-3.0) 1.2 % (0.0-3.0) Basophils (%) (Auto) 1.1 % (0.0-2.0) 1.2 % (0.0-2.0) Sodium Level 141 MMOL/L (136-145) 143 MMOL/L (136-145) Potassium Level 3.6 MMOL/L (3.5-5.1) 4.2 MMOL/L (3.5-5.1) Chloride Level 105 MMOL/L (98-107) 105 MMOL/L (98-107) Carbon Dioxide Level 32 MMOL/L (21-32) 34 MMOL/L (21-32) H Anion Gap 4 (5-15) L 5 (5-15) Blood Urea Nitrogen 13 mg/dL (7-18) 16 mg/dL (7-18) Creatinine 0.7 MG/DL (0.55-1.30) 0.8 MG/DL (0.55-1.30) Estimat Glomerular Filtration Rate > 60 mL/min (>60) > 60 mL/min (>60) Glucose Level 120 MG/DL (74-106) H 90 MG/DL (74-106) Calcium Level 8.7 MG/DL (8.5-10.1) 8.5 MG/DL (8.5-10.1) Troponin I 0.008 ng/mL (0.000-0.056) Pro-B-Type Natriuretic Peptide 438 (0-125) H Height (Feet): 5 Height (Inches): 5.00 Weight (Pounds): 156 General Appearance: no apparent distress, alert Cardiovascular: normal rate Respiratory/Chest: normal breath sounds, no respiratory distress Abdominal Exam: normal bowel sounds, non tender, soft Emmy Guthrie N.P. Jul 27, 2017 14:52
--- NOTE | 2017-07-27 17:40 | Cardiology Report ---
APPROVED REPORT EXAM: Two-dimensional and M-mode echocardiogram with Doppler and color Doppler. INDICATION Bradycardia M-Mode DIMENSIONS IVSd1.9 (0.7-1.1cm)Left Atrium (MM)3.0 (1.6-4.0cm) LVDd3.9 (3.5-5.6cm)Aortic Root3.4 (2.0-3.7cm) PWd1.5 (0.7-1.1cm)Aortic Cusp Exc.1.9 (1.5-2.0cm) LVDs2.3 (2.5-4.0cm) PWs2.0 cm Normal left ventricular chamber size, systolic function and wall motion. Left ventricular ejection fraction estimated to be 55%. Mild to moderate left ventricular hypertrophy. No evidence of pericardial effusion. All other cardiac chamber sizes are within normal limits. Focal aortic valve sclerosis with adequate cusp excursion. Thickened mitral valve leaflets with normal excursion. Mitral annulus and aortic root calcification. Pulmonic valve not well visualized. Normal tricuspid valve structure. IVC at normal size with physiologic collapse. A color flow and spectral Doppler study was performed and revealed: Trace aortic regurgitation. Trace mitral regurgitation. Mitral inflow indicates normal left ventricular diastolic function. Trace tricuspid regurgitation. Tricuspid systolic velocities suggests peak right ventricular systolic pressure of 15 mmHg.
--- NOTE | 2017-07-27 18:53 | General Progress Note ---
Assessment/Plan Assessment/Plan ASSESSMENT AND PLAN: 1. Anemia, secondary to chronic disease. Anemia workup has been reviewed. --> transfuse if hgb below 8 --> watch counts, has currently improved 2. Elevated CEA, rule out malignancy --> s/p egd/colo with polyectomy.Have reviewed pathology report. Negative for carcinoma 3. Macrocytosis 2/2 hypothyroid. The patient is on Synthroid. 4. Generalized weakness. 5. Hyperlipidemia. Subjective Constitutional: Reports: no symptoms HEENT: Reports: no symptoms Cardiovascular: Reports: no symptoms Respiratory: Reports: no symptoms Gastrointestinal/Abdominal: Reports: no symptoms Genitourinary: Reports: no symptoms Neurologic/Psychiatric: Reports: no symptoms Endocrine: Reports: no symptoms Hematologic/Lymphatic: Reports: no symptoms Allergies: Coded Allergies: No Known Allergies (Unverified , 07/21/17) Subjective HH better Objective Last 24 Hour Vital Signs Date Time Temp Pulse Resp B/P (MAP) Pulse Ox O2 Delivery O2 Flow Rate FiO2 07/27/17 11:53 97.7 65 19 138/88 98 Nasal Cannula 2.0 07/27/17 08:00 63 07/27/17 08:00 97.5 61 20 140/81 98 Nasal Cannula 2.0 07/27/17 07:47 96 Nasal Cannula 2.0 28 07/27/17 07:47 Nasal Cannula 2.0 28 07/27/17 04:00 97.9 62 14 136/84 98 Nasal Cannula 2.0 07/27/17 04:00 53 07/27/17 00:00 97.3 64 12 126/78 95 Nasal Cannula 2.0 07/27/17 00:00 63 07/26/17 20:00 59 07/26/17 20:00 97.9 63 12 130/76 96 Nasal Cannula 2.0 07/26/17 19:30 Nasal Cannula 2.0 28 07/26/17 19:30 95 Nasal Cannula 2.0 28 Intake and Output 07/27/17 07/28/17 19:00 07:00 Intake Total 240 ml Balance 240 ml Intake Oral 240 ml # Voids 2 # Bowel Movements 1 Laboratory Tests 07/27/17 07:40: White Blood Count 5.1, Red Blood Count 3.34L, Hemoglobin 11.1L, Hematocrit 34.5L , Mean Corpuscular Volume 103H, Mean Corpuscular Hemoglobin 33.4H, Mean Corpuscular Hemoglobin Concent 32.3, Red Cell Distribution Width 15.1H, Platelet Count 235, Mean Platelet Volume 5.3L, Neutrophils (%) (Auto) 65.6, Lymphocytes (%) (Auto) 26.2, Monocytes (%) (Auto) 5.8, Eosinophils (%) (Auto) 1.2, Basophils (%) (Auto) 1.2, Sodium Level 143, Potassium Level 4.2, Chloride Level 105, Carbon Dioxide Level 34H, Anion Gap 5, Blood Urea Nitrogen 16, Creatinine 0.8, Estimat Glomerular Filtration Rate > 60, Glucose Level 90, Calcium Level 8.5, Troponin I 0.008, Pro-B-Type Natriuretic Peptide 438H Height (Feet): 5 Height (Inches): 5.00 Weight (Pounds): 156 General Appearance: no apparent distress EENT: normal ENT inspection Neck: normal alignment Cardiovascular: no gallop/murmur Respiratory/Chest: no respiratory distress, no accessory muscle use Abdomen: no organomegaly Neurologic: toe puller II-XII grossly normal Arturo Newton Jul 27, 2017 18:53
[2017-07-28 13:36] LABS: OTHERS PATHOLOGIST COMMENT
--- NOTE | 2017-07-29 16:36 | Discharge Summary ---
Discharge Summary Hospital Course Date of Admission Jul 21, 2017 at 16:54 Date of Discharge Jul 27, 2017 at 13:54 Admitting Diagnosis generalized weakness, hypothyroidism HPI Salome Ricks is a 66 year old female who was admitted on Jul 21, 2017 at 16:54 for Generalized Weakness,Hypothyroidism Hospital Course [id number] Discharge Discharge Disposition Patient was discharged to SNF/Subacute Facility(03) Discharge Diagnoses: Shea Duggan REHABILITATION CONSTRUCTION SPECIALIST Jul 29, 2017 16:36
--- NOTE | 2017-07-29 23:19 | Cardiology Report ---
APPROVED REPORT EKG Measurement Heart [id number] Sinus rhythm Low voltage QRS Cannot rule out Anterior infarct, age undetermined Abnormal ECG
--- NOTE | 2017-07-30 04:00 | Discharge Summary 2 SIG ---
DATE OF ADMISSION: 07/21/2017 DATE OF DISCHARGE: 07/27/2017 CONSULTANTS: 1. Imer Rubi M.D. 2. Arturo Newton M.D. 3. Layton Srinivasan M.D. 4. Juan Forbes M.D. BRIEF HOSPITAL COURSE: The patient is a 66-year-old female who is a resident of [facility] who was brought into [facility] ED due to abnormal labs. The patient was found to have anemia and severely high TSH. She has history of hypothyroidism. On evaluation at ED, TSH was elevated to 53. Hemoglobin was 8.3, hematocrit 25, MCV of 106. She was admitted to telemetry for evaluation of hypothyroidism. CEA was elevated to 11. The patient underwent esophagogastroduodenoscopy with colonoscopy on 07/23/[address] Rubi. Findings showed gastric polyps with gastritis. There were four colonic polyps that were removed. There was presence of internal hemorrhoids. Test had poor colonic prep. CT of the abdomen and pelvis showed small bilateral pleural effusions with anasarca and trace ascites. There was liquefied stool indicative of diarrhea. The patient had been on levothyroxine 75 mcg at care home. Levothyroxine dose was increased to 100 mcg daily. She had anemia and anemia workup done, which showed macrocytosis. B12 and folate was within normal limits. Macrocytosis was assessed to be secondary to hypothyroidism. Anemia workup showed anemia due to chronic disease. She had normal iron level with elevated iron stores. Venous duplex of lower extremity revealed patent venous system bilaterally. She episodes of bradycardia, heart rate in the low 50s, but stable. TSH improved. She was recommended need for repeat TSH and free T4 in three weeks. EGD biopsy was negative for high-grade dysplasia. No intestinal metaplasia or dysplasia or malignancy. She was eventually discharged back to care home. FINAL DIAGNOSES: 1. Hypothyroidism. 2. Bradycardia. 3. Anemia of chronic disease. 4. Macrocytosis secondary to hypothyroidism. 5. Hypoalbuminemia. 6. Gastritis. 7. Colonic polyps. 8. Internal hemorrhoids. 9. Gastric polyps. 10. Hyperlipidemia. DISPOSITION: The patient was discharged to [facility]. DISCHARGE MEDICATIONS: Refer to medication list. Pnieda Cormier M.D. I have been assigned to dictate discharge summary on this account and I was not involved in the patient's management. Shea Duggan N.P. DR: Katarzyna JOB#: [id number] CC: SHANI
== END 2017-07-27 13:54 | DRG 424 ==
LOC: EDBD 14:30 → EMR 14:55 → EDBEDREQ 16:39 → 2E 16:54 → EDBEDREQ 18:43
PROC: 0DB68ZX Excision of Stomach, Via Natural or Artificial Opening Endoscopic, Diagnostic (ICD-10-PCS; 2017-07-23)
PROC: 0DBK8ZX Excision of Ascending Colon, Via Natural or Artificial Opening Endoscopic, Diagnostic (ICD-10-PCS; principal; 2017-07-23 08:03)
PROC: 0DBL8ZX Excision of Transverse Colon, Via Natural or Artificial Opening Endoscopic, Diagnostic (ICD-10-PCS; 2017-07-23 08:03)
PROC: 0DBM8ZX Excision of Descending Colon, Via Natural or Artificial Opening Endoscopic, Diagnostic (ICD-10-PCS; 2017-07-23 08:03)
PROC: 30233N1 Transfusion of Nonautologous Red Blood Cells into Peripheral Vein, Percutaneous Approach (ICD-10-PCS; 2017-07-25)
DX: E03.9 Hypothyroidism, unspecified (principal); J90 Pleural effusion, not elsewhere classified; G30.9 Alzheimer's disease, unspecified; F02.80 Dementia in other diseases classified elsewhere, unspecified severity, without behavioral disturbance, psychotic disturbance, mood disturbance, and anxiety; E88.09 Other disorders of plasma-protein metabolism, not elsewhere classified; R97.0 Elevated carcinoembryonic antigen [CEA]; K63.5 Polyp of colon; K31.7 Polyp of stomach and duodenum; K64.8 Other hemorrhoids; R00.1 Bradycardia, unspecified; D63.8 Anemia in other chronic diseases classified elsewhere; K29.70 Gastritis, unspecified, without bleeding; Z99.3 Dependence on wheelchair; Z74.01 Bed confinement status
CPT/HCPCS: 36415; 71260; 74177; 80048; 80053; 82378; 82607; 82728; 82746; 82962; 83010; 83540; 83550; 83615; 83735; 83880; 83921; 84439; 84443; 84484; 85007; 85025; 85044; 85060; 85610; 85730; 86301; 86850; 86900; 86901; 86920; 87081; 93005; 93306; 93970; 94003; 94150; 94760; 99285

== ENCOUNTER 2018-07-20 11:47 | Inpatient (IN) | payer MEDICARE, MEDICAID ==
[~2018-07-20] VITALS: Ht 165.1 cm; Wt 52.2 kg
[~2018-07-20 11:47] MED LIST: ACETAMINOP160 MG/54 ORAL; ACETAMINOPHEN325 M1 ORAL; ATROPINE S0.4 MG/1 M IV; BACTRIM 400-801 EACH ORAL; BISACODYL10 M1 PO; CRANBERRY425 MG PO; DOCUSATE SODIU100 M2 ORAL; DOCUSATE SODIU100 MG ORAL; LEVOTHYROXINE100 MCG ORAL; LEVOTHYROXINE200 MCG PO; LEVOTHYROXINE75 MCG ORAL; MULTIVITAMINS1 EAC2 ORAL; ONDANSETRON4 MG/2 M2 IVP; PANTOPRAZOLE SO40 MG IV; PROSTAT SF; PROSTAT SF PO; PROTONIX IV40 MG IV; TYLENOL650 MG PR; VITAMIN C250 MG ORAL; VITAMIN C500 M1 ORAL
[2018-07-20] MEDS ORDERED: Sodium Chloride 500ML 500 ML IV ONE (11:53)
[2018-07-20 12:12] LABS: BASOPHILS % (AUTO) 0.7 % (0.0-2.0); EOSINOPHILS % (AUTO) 2.7 % (0.0-3.0); HEMATOCRIT 27.9 % (37.0-47.0); HEMOGLOBIN 8.4 G/DL (12.0-16.0); LYMPHOCYTES % (AUTO) 32.2 % (20.0-45.0); MEAN CORPUSCULAR VOLUME 89 FL (80-99); MONOCYTES % (AUTO) 5.4 % (1.0-10.0); NEUTROPHILS % (AUTO) 58.9 % (45.0-75.0); PLATELET COUNT 447 K/UL (150-450); RED BLOOD COUNT 3.14 M/UL (4.20-5.40); RED CELL DISTRIBUTION WIDTH 14.4 % (11.6-14.8); WHITE BLOOD COUNT 12.7 K/UL (4.8-10.8)
[2018-07-20 12:30] LABS: ANION GAP 5 mmol/L (5-15); BLOOD UREA NITROGEN 19 mg/dL (7-18); CALCIUM 9.6 MG/DL (8.5-10.1); CARBON DIOXIDE 32 MMOL/L (21-32); CHLORIDE 100 MMOL/L (98-107); POTASSIUM 4.4 MMOL/L (3.5-5.1); SODIUM 136 MMOL/L (136-145)
[2018-07-20 12:32] VITALS: BP 91/73
[2018-07-20 12:35] LABS: ALANINE AMINOTRANSFERASE 11 U/L (12-78); ALBUMIN 2.3 G/DL (3.4-5.0); ALBUMIN/GLOBULIN RATIO 0.3 (1.0-2.7); ALKALINE PHOSPHATASE 92 U/L (46-116); ASPARTATE AMINO TRANSFERASE 13 U/L (15-37); BILIRUBIN,TOTAL 0.3 MG/DL (0.2-1.0)
[2018-07-20] MEDS ORDERED: MULTIVITAMINS1 EAC2 ORAL (13:21)
[2018-07-20] MEDS ORDERED: DOCUSATE SODIU100 MG ORAL (13:21)
[2018-07-20] MEDS ORDERED: ASCORBIC ACID500 MG ORAL (13:21)
[2018-07-20] MEDS ORDERED: OMEPRAZOLE40 M1 ORAL (13:21)
[2018-07-20] MEDS ORDERED: FERROUS SULFAT325 MG ORAL (13:21)
[2018-07-20] MEDS ORDERED: REMERON15 MG ORAL (13:21)
[2018-07-20 14:04] VITALS: BP 101/69
--- NOTE | 2018-07-20 14:22 | Emergency Room Report ---
History of Present Illness General Chief Complaint: Abnormal Labs Source: Patient, EMS Present Illness HPI 67-year-old female presents ED for evaluation. Patient referred from care home facility for low hemoglobin and hematocrit. Labs done recently. Patient sent in for evaluation. Patient has dementia and is nonverbal at baseline. No signs of distress. No observed bleeding. Patient appears pale. No other aggravating relieving factors. Denies any other associated symptoms Allergies: Coded Allergies: No Known Allergies (Unverified , 07/21/17) Patient History Past Medical History: dementia Past Surgical History: none Pertinent Family History: none Social History: Denies: smoking, alcohol use, drug use Now: No Immunizations: UTD Reviewed Nursing Documentation: PMH: Agreed; PSxH: Agreed Nursing Documentation-PMH Past Medical History: No History, Except For Hx Neurological Problems: Yes Hx Dementia: Yes Hx Alzheimer's Disease: Yes Review of Systems All Other Systems: limited Physical Exam Vital Signs Date Time Temp Pulse Resp B/P (MAP) Pulse Ox O2 Delivery O2 Flow Rate FiO2 07/20/18 11:41 97.9 92 16 116/82 95 Nasal Cannula 2.0 97.9 Sp02 EP Interpretation: reviewed, normal General Appearance: other - nonverbal Head: normocephalic, atraumatic Eyes: bilateral eye normal inspection, bilateral eye PERRL ENT: hearing grossly normal, normal pharynx, no angioedema, normal voice Neck: full range of motion, supple/symm/no masses Respiratory: chest non-tender, lungs clear, normal breath sounds, speaking full sentences Cardiovascular #1: regular rate, rhythm, no edema Cardiovascular #2: 2+ carotid (R), 2+ carotid (L), 2+ radial (R), 2+ radial (L) , 2+ dorsalis pedis (R), 2+ dorsalis pedis (L) Gastrointestinal: normal bowel sounds, non tender, soft, non-distended, no guarding, no rebound Rectal: deferred Genitourinary: normal inspection, no CVA tenderness Musculoskeletal: back normal, gait/station normal, normal range of motion, non- tender Neurologic: other - nonverbal Psychiatric: other - nonverbal Reflexes: 3+ bicep (R), 3+ bicep (L), 3+ tricep (R), 3+ tricep (L), 3+ knee (R) , 3+ knee (L) Skin: normal color, no rash, warm/dry, well hydrated Lymphatic: no adenopathy Medical Decision Making Diagnostic Impression: Primary Impression: Anemia Qualified Codes: D64.9 - Anemia, unspecified ER Course Hospital Course 67-year-old female presents to ED for evaluation of possible anemia, with possible transfusion Differential diagnoses include: anemia requiring transfusion, microcytic anemia , macrocytic anemia, heavy blood loss Clinical course Patient placed on stretcher. After initial history and physical I ordered labs including CBC and type and screen. Labs- hemoglobin 8.4. Electrolytes okay, no leukocytosis patient will be admitted to Dr Cormier. Diagnosis - anemia Admitted to floor in serious condition Last Vital Signs Date Time Temp Pulse Resp B/P (MAP) Pulse Ox O2 Delivery O2 Flow Rate FiO2 07/20/18 14:04 95 17 101/69 99 Nasal Cannula 2.0 07/20/18 12:32 98.1 98.1 Status: improved Disposition: ADMITTED INPATIENT Condition: Serious Referrals: Pineda Cormier MD (PCP) Dhaval Napier MD Jul 20, 2018 14:22
[2018-07-20 14:38] LABS: APPEARANCE,URINE TURBID; BILIRUBIN, URINE NEGATIVE (NEGATIVE); COLOR,URINE YELLOW; GLUCOSE, URINE (UA) NEGATIVE (NEGATIVE); KETONES,URINE NEGATIVE (NEGATIVE); LEUKOCYTE ESTERASE ,URINE 3+ (NEGATIVE); NITRITE,URINE NEGATIVE (NEGATIVE); PH,URINE 7 (4.5-8.0); PROTEIN,URINE 3+ (NEGATIVE); UROBILINOGEN,URINE NORMAL MG/DL (0.0-1.0)
[2018-07-20 16:00] VITALS: BP 105/69
[2018-07-20] MEDS: Docusate 100mg cap ORAL SCH (18:04)
[2018-07-20] MEDS: Ascorbic Acid 500mg tab ORAL SCH (18:04)
[2018-07-20 18:56] LABS: BASOPHILS % (AUTO) 0.9 % (0.0-2.0); EOSINOPHILS % (AUTO) 2.3 % (0.0-3.0); HEMOGLOBIN 8.4 G/DL (12.0-16.0); MEAN CORPUSCULAR VOLUME 92 FL (80-99); NEUTROPHILS % (AUTO) 65.8 % (45.0-75.0); PLATELET COUNT 443 K/UL (150-450); RED BLOOD COUNT 2.94 M/UL (4.20-5.40); RED CELL DISTRIBUTION WIDTH 14.1 % (11.6-14.8); WHITE BLOOD COUNT 14.1 K/UL (4.8-10.8)
[2018-07-20 19:35] LABS: FERRITIN 882 NG/ML (8-388); LACTATE DEHYDROGENASE 152 U/L (81-234)
[2018-07-20 19:49] LABS: % IRON SATURATION 15 % (15-50); IRON 22 ug/dL (50-175); TOTAL IRON BINDING CAPACITY 151 ug/dL (250-450)
[2018-07-20 20:00] VITALS: BP 108/74
[2018-07-21] VITALS: BP 121/80
[2018-07-21 04:00] VITALS: BP 129/76
[2018-07-21] MEDS ORDERED: Bisacodyl EC 5mg tab ORAL ONE ×2 (07:45→14:00)
[2018-07-21] MEDS ORDERED: Magnesium Citrate Liq Btl ORAL ONE (07:45)
[2018-07-21 08:00] VITALS: BP 105/72
[2018-07-21 08:04] LABS: BASOPHILS % (AUTO) 0.3 % (0.0-2.0); EOSINOPHILS % (AUTO) 1.7 % (0.0-3.0); HEMATOCRIT 28.5 % (37.0-47.0); HEMOGLOBIN 8.7 G/DL (12.0-16.0); LYMPHOCYTES % (AUTO) 20.5 % (20.0-45.0); MEAN CORPUSCULAR VOLUME 89 FL (80-99); MONOCYTES % (AUTO) 3.6 % (1.0-10.0); NEUTROPHILS % (AUTO) 73.9 % (45.0-75.0); PLATELET COUNT 433 K/UL (150-450); RED BLOOD COUNT 3.19 M/UL (4.20-5.40); RED CELL DISTRIBUTION WIDTH 14.2 % (11.6-14.8); WHITE BLOOD COUNT 13.9 K/UL (4.8-10.8)
[2018-07-21 08:54] LABS: ALANINE AMINOTRANSFERASE 11 U/L (12-78); ALBUMIN 2.3 G/DL (3.4-5.0); ALBUMIN/GLOBULIN RATIO 0.4 (1.0-2.7); ALKALINE PHOSPHATASE 88 U/L (46-116); ANION GAP 6 mmol/L (5-15); ASPARTATE AMINO TRANSFERASE 13 U/L (15-37); BILIRUBIN,TOTAL 0.2 MG/DL (0.2-1.0); BLOOD UREA NITROGEN 18 mg/dL (7-18); CALCIUM 9.5 MG/DL (8.5-10.1); CARBON DIOXIDE 29 MMOL/L (21-32); CHLORIDE 101 MMOL/L (98-107); CREATININE 0.9 MG/DL (0.55-1.30); POTASSIUM 4.3 MMOL/L (3.5-5.1); SODIUM 136 MMOL/L (136-145)
--- NOTE | 2018-07-21 09:33 | Consultation ---
Consult Note Consult Note Hematology Consult DOS: 07/21/18 REQ MD: Pineda Cormier RFC: ACD Present Illness HPI 67-year-old female presents ED for evaluation. Patient referred from [facility] facility for low hemoglobin and hematocrit. Labs done recently. Patient sent in for evaluation. Patient has dementia and is nonverbal at baseline. No signs of distress. No observed bleeding. Patient appears pale. No other aggravating relieving factors. Denies any other associated symptoms. Noted to have anemia and heme was consulted. Allergies: No Known Allergies (Unverified , 07/21/17) Patient History Past Medical History: dementia Past Surgical History: none Pertinent Family History: none Social History: Denies: smoking, alcohol use, drug use Now: No Immunizations: UTD Reviewed Nursing Documentation: PMH: Agreed; PSxH: Agreed Nursing Documentation-PMH Past Medical History: No History, Except For Hx Neurological Problems: Yes Hx Dementia: Yes Hx Alzheimer's Disease: Yes ER ROS - General Review of Systems All Other Systems: limited ER Physical Exam - General Physical Exam Last 24 Hour Vital Signs Date Time Temp Pulse Resp B/P (MAP) Pulse Ox O2 Delivery O2 Flow Rate FiO2 07/21/18 04:00 97.0 95 18 129/76 (93) 100 97.0 07/21/18 00:00 97.6 87 18 121/80 (94) 100 97.6 07/20/18 21:00 Nasal Cannula 2.0 07/20/18 20:00 98.4 91 18 108/74 (85) 99 98.4 07/20/18 16:00 97.8 81 18 105/69 (81) 98 97.8 07/20/18 15:04 Nasal Cannula 2.0 07/20/18 14:48 95 16 101/69 100 Nasal Cannula 2.0 07/20/18 14:04 95 17 101/69 99 Nasal Cannula 2.0 07/20/18 12:32 98.1 88 17 91/73 99 Room Air 98.1 07/20/18 11:41 97.9 92 16 116/82 95 Nasal Cannula 2.0 97.9 General Appearance: other - nonverbal Head: normocephalic, atraumatic Eyes: bilateral eye normal inspection ENT: hearing grossly normal, normal pharynx Neck: full range of motion, supple/symm/no masses Respiratory: chest non-tender, lungs clear Cardiovascular #1: regular rate, rhythm, no edema Gastrointestinal: normal bowel sounds, non tender Rectal: deferred Genitourinary: normal inspection Musculoskeletal: back normal, gait/station normal, normal range of motion, non- tender Laboratory Tests Test 07/20/18 11:55 07/20/18 13:55 07/20/18 18:10 07/21/18 07:40 White Blood Count 12.7 K/UL (4.8-10.8) H 14.1 K/UL (4.8-10.8) H 13.9 K/UL (4.8-10.8) H Red Blood Count 3.14 M/UL (4.20-5.40) L 2.94 M/UL (4.20-5.40) L 3.19 M/UL (4.20-5.40) L Hemoglobin 8.4 G/DL (12.0-16.0) L 8.4 G/DL (12.0-16.0) L 8.7 G/DL (12.0-16.0) L Hematocrit 27.9 % (37.0-47.0) L 27.0 % (37.0-47.0) L 28.5 % (37.0-47.0) L Mean Corpuscular Volume 89 FL (80-99) 92 FL (80-99) 89 FL (80-99) Mean Corpuscular Hemoglobin 26.9 PG (27.0-31.0) L 28.6 PG (27.0-31.0) 27.2 PG (27.0-31.0) Mean Corpuscular Hemoglobin Concent 30.2 G/DL (32.0-36.0) L 31.2 G/DL (32.0-36.0) L 30.4 G/DL (32.0-36.0) L Red Cell Distribution Width 14.4 % (11.6-14.8) 14.1 % (11.6-14.8) 14.2 % (11.6-14.8) Platelet Count 447 K/UL (150-450) 443 K/UL (150-450) 433 K/UL (150-450) Mean Platelet Volume 5.0 FL (6.5-10.1) L 4.8 FL (6.5-10.1) L 5.1 FL (6.5-10.1) L Neutrophils (%) (Auto) 58.9 % (45.0-75.0) 65.8 % (45.0-75.0) 73.9 % (45.0-75.0) Lymphocytes (%) (Auto) 32.2 % (20.0-45.0) 28.0 % (20.0-45.0) 20.5 % (20.0-45.0) Monocytes (%) (Auto) 5.4 % (1.0-10.0) 3.0 % (1.0-10.0) 3.6 % (1.0-10.0) Eosinophils (%) (Auto) 2.7 % (0.0-3.0) 2.3 % (0.0-3.0) 1.7 % (0.0-3.0) Basophils (%) (Auto) 0.7 % (0.0-2.0) 0.9 % (0.0-2.0) 0.3 % (0.0-2.0) Prothrombin Time 9.8 SEC (9.30-11.50) Prothromb Time International Ratio 1.0 (0.9-1.1) Activated Partial Thromboplast Time 31 SEC (23-33) Sodium Level 136 MMOL/L (136-145) 136 MMOL/L (136-145) Potassium Level 4.4 MMOL/L (3.5-5.1) 4.3 MMOL/L (3.5-5.1) Chloride Level 100 MMOL/L (98-107) 101 MMOL/L (98-107) Carbon Dioxide Level 32 MMOL/L (21-32) 29 MMOL/L (21-32) Anion Gap 5 mmol/L (5-15) 6 mmol/L (5-15) Blood Urea Nitrogen 19 mg/dL (7-18) H 18 mg/dL (7-18) Creatinine 1.0 MG/DL (0.55-1.30) 0.9 MG/DL (0.55-1.30) Estimat Glomerular Filtration Rate 55.7 mL/min (>60) > 60 mL/min (>60) Glucose Level 105 MG/DL (74-106) 98 MG/DL (74-106) Calcium Level 9.6 MG/DL (8.5-10.1) 9.5 MG/DL (8.5-10.1) Total Bilirubin 0.3 MG/DL (0.2-1.0) 0.2 MG/DL (0.2-1.0) Aspartate Amino Transf (AST/SGOT) 13 U/L (15-37) L 13 U/L (15-37) L Alanine Aminotransferase (ALT/SGPT) 11 U/L (12-78) L 11 U/L (12-78) L Alkaline Phosphatase 92 U/L (46-116) 88 U/L (46-116) Total Protein 9.0 G/DL (6.4-8.2) H 8.5 G/DL (6.4-8.2) H Albumin 2.3 G/DL (3.4-5.0) L 2.3 G/DL (3.4-5.0) L Globulin 6.7 g/dL 6.2 g/dL Albumin/Globulin Ratio 0.3 (1.0-2.7) L 0.4 (1.0-2.7) L Urine Color Yellow Urine Appearance Turbid Urine pH 7 (4.5-8.0) Urine Specific [place] 1.010 (1.005-1.035) Urine Protein 3+ (NEGATIVE) H Urine Glucose (UA) Negative (NEGATIVE) Urine Ketones Negative (NEGATIVE) Urine Blood 4+ (NEGATIVE) H Urine Nitrite Negative (NEGATIVE) Urine Bilirubin Negative (NEGATIVE) Urine Urobilinogen Normal MG/DL (0.0-1.0) Urine Leukocyte Esterase 3+ (NEGATIVE) H Urine RBC 10-15 /HPF (0 - 2) H Urine WBC 60-80 /HPF (0 - 2) H Urine Squamous Epithelial Cells Few /LPF (NONE/OCC) Urine Bacteria Moderate /HPF (NONE) H Reticulocyte Count 1.2 % (0.0-2.0) Fibrinogen 821 mg/dL (200-400) H Iron Level 22 ug/dL (50-175) L Total Iron Binding Capacity 151 ug/dL (250-450) L Percent Iron Saturation 15 % (15-50) Unsaturated Iron Binding 129 ug/dL (112-346) Ferritin 882 NG/ML (8-388) H Lactate Dehydrogenase 152 U/L (81-234) Carcinoembryonic Antigen Pending Folate 18.8 NG/ML (8.6-58.9) Assessment and Recs: #. Anemia, secondary to chronic disease. Anemia workup has been reviewed. --> transfuse if hgb below 7 --> watch counts, has currently improved #. Elevated CEA, rule out malignancy --> s/p egd/colo with polyectomy.Have reviewed pathology report. Negative for carcinoma #. Macrocytosis 2/2 hypothyroid. The patient is on Synthroid. #. Generalized weakness. #. Hyperlipidemia. #. Right 2 cm ovarian cyst #. T12 compression fracture probably old. Arturo Newton MD Jul 21, 2018 09:33
[2018-07-21] MEDS: Ascorbic Acid 500mg tab ORAL SCH ×2 (09:39→17:22)
[2018-07-21] MEDS: Pantoprazole Inj IVP SCH (09:40)
[2018-07-21] MEDS: Docusate 100mg cap ORAL SCH ×2 (09:40→17:22)
[2018-07-21] MEDS: D5 1/2NS 1,000 ML IV SCH ×2 (09:44→18:00)
[2018-07-21 12:00] VITALS: BP 112/70
[2018-07-21] MEDS: Piperacillin/Tazobactam 3.375 GM in D5W 110 ML IVPB SCH ×2 (13:17→21:19)
--- NOTE | 2018-07-21 13:45 | History and Physical Report ---
DATE OF ADMISSION: 07/20/2018 HISTORY OF PRESENT ILLNESS: The patient is admitted for anemia, elevated BUN, severe malnutrition, elevated WBC, and possible UTI. The patient is a relatively poor historian. We cannot get a reliable history from the patient. He is a poor historian and has advanced dementia. Again, cannot get the history. The patient is admitted as mentioned to evaluate for anemia, elevated BUN, azotemia, acute renal failure, severe malnutrition, elevated WBC, and UTI. PAST MEDICAL HISTORY: Organic brain syndrome, constipation, iron deficiency anemia, hypothyroidism, mood disorder, and GERD. ALLERGIES: No known allergies. PAST SURGICAL HISTORY: None known. MEDICATIONS: Vitamin C, Colace, Levoxyl, ferrous sulfate, mirtazapine, multivitamin, and omeprazole. FAMILY HISTORY: Unable to obtain. SOCIAL HISTORY: Unable to obtain. REVIEW OF SYSTEMS: Unable to obtain, very poor historian. PHYSICAL EXAMINATION: VITAL SIGNS: Temperature , blood pressure 91/72. HEENT: PERRLA. NECK: Supple. CHEST: Clear to auscultation. GASTROINTESTINAL: Soft, nontender, and nondistended. No organomegaly. EXTREMITIES: Moves all four extremities. NEUROLOGIC: The patient is oriented to name only. LABORATORY DATA: WBC of 12.7, hemoglobin 8.4, and platelets 447. Sodium 136, potassium 4.4, BUN of 19, creatinine of 1, and glucose of 105. ASSESSMENT AND PLAN: 1. Leukocytosis. 2. UTI. 3. Anemia. 4. Malnutrition. I have asked Dr. Albarado, Dr. Florez, Dr. Newton and Dr. Vanessa to see the patient for the above-mentioned diagnoses and treatment. Pineda Cormier M.D. DR: TOMASZ JOB#: [id number] CC:
[2018-07-21 16:00] VITALS: BP 109/72
--- NOTE | 2018-07-21 18:15 | Consultation ---
DATE OF CONSULTATION: 07/20/2018 GASTROENTEROLOGY CONSULTATION CONSULTING PHYSICIAN: Lora Florez M.D. CHIEF COMPLAINT: I was asked to see this patient by Dr. Pineda Cormier for evaluation of anemia and proctocolitis. HISTORY OF PRESENT ILLNESS: The patient is a 67-year-old, Azeri-speaking woman from a residential who was brought in due to abnormal labs with low hemoglobin. The patient appears to be unaffected and has had no reports of nausea, vomiting, or hematemesis. Her laboratory from the residential showed hemoglobin of 8 and subsequently here in the hospital it is about same number was noted. The patient also appears to possibly have a urinary tract infection according to urinalysis. CT scan of the abdomen and pelvis was done showing inflammation in the distal colon suggestive of proctocolitis. The patient has been noted by nursing staff to have no previous endoscopies or colonoscopies. I have attempt to contact the family without success. PAST MEDICAL HISTORY: History of oxygen-dependent, hypothyroidism, dementia, history of urinary tract infections, generalized weakness, history of muscle wasting, bradycardia, anemia, failure to thrive. FAMILY HISTORY: Unavailable. SOCIAL HISTORY: The patient is Azeri speaking and lives in a residential. REVIEW OF SYSTEMS: Otherwise negative. PHYSICAL EXAMINATION: GENERAL: Debilitated thin, pale woman, seen in her room, in no distress. GENERAL: Normocephalic and atraumatic. Sclerae anicteric. Oropharynx clear. NECK: Supple. CHEST: Clear to auscultation. CARDIOVASCULAR: Revealed regular rate. ABDOMEN: Soft with good bowel sounds. There is some mild tenderness to palpation in the lower quadrants without guarding or rebound. EXTREMITIES: Revealed no edema. LABORATORY DATA: Noted. ASSESSMENT: This patient presents with severe degree of anemia of unclear etiology. The patient does have chart history of anemia and in fact she is on iron replacement as well as proton pump inhibitor at the residential. Differential diagnosis includes anemia of chronic disease as well as iron-deficiency anemia typically seen in blood loss. The upper and lower gastrointestinal tract pathologies can be evaluated. The patient also has a CT evidence of proctocolitis and she should be checked for Clostridium difficile since this seems to be a typical pathogen. If negative than, lower gastrointestinal endoscopy can be done to evaluate the lining and endoscopy can also be done to evaluate the upper gastrointestinal tract. Antibiotics can also be given for urinary tract infection and possibly to cover the Clostridium difficile colitis. I will defer antibiotic management to Infectious Disease program consultant who will be seeing this patient. RECOMMENDATIONS: 1. Oral intake as tolerated. 2. Monitor CBC. 3. Transfuse as necessary. 4. Proton pump inhibitor. 5. Hold iron 6. Check stool Hemoccult. 7. Check stool Clostridium difficile. 8. Possible endoscopy and sigmoidoscopy as outlined. Thank you for asking me to participate in the care of this patient. Lora Florez M.D. DR: Deanna JOB#: [id number] CC: SHANI
--- NOTE | 2018-07-21 18:30 | Consultation ---
DATE OF CONSULTATION: 07/21/2018 INFECTIOUS DISEASES CONSULTATION CONSULTING PHYSICIAN: Chanda Gordon M.D. REFERRING PHYSICIAN: Pineda Cormier M.D. This consultation has been done on behalf of Dr. Rickie Hester. REASON FOR CONSULTATION: Urinary tract infection. HISTORY OF PRESENTING ILLNESS: This is a 67-year-old lady with history of dementia, who came in from a group home facility with low hemoglobin and hematocrit. She was found to have a urinary tract infection and an Infectious Diseases consultation has been obtained for antibiotics. PAST MEDICAL HISTORY: 1. History of dementia. 2. History of anemia. MEDICATIONS: As an inpatient, she is on Dulcolax, multivitamin, Protonix, levothyroxine, Remeron, ascorbic acid, docusate, Zofran, and Tylenol. ALLERGIES: No known drug allergies. SOCIAL HISTORY: Unknown. FAMILY HISTORY: Unknown. REVIEW OF SYSTEMS: Unable to obtain currently. PHYSICAL EXAMINATION: VITAL SIGNS: Temperature of 97.7, T-max of 98.4, pulse of 99, respiratory rate of 18, blood pressure 105/72, and O2 saturation of 97%. HEENT: Pupils equally reactive to light and accommodation. Mouth appears clean without thrush. NECK: Supple. No adenopathy. No JVD. CARDIOVASCULAR: Regular rate and rhythm. No murmurs. LUNGS: Clear to auscultation bilaterally. No crackles. No wheezes. ABDOMEN: Soft and nontender. No organomegaly. EXTREMITIES: No cyanosis, no clubbing, no edema. LABORATORY AND DIAGNOSTIC DATA: White count of 13.9, hemoglobin 8.7, hematocrit 28.5, MCV 89, platelet count of 433,000, and neutrophils of 73%. Sodium 136, potassium 4.3, chloride 101, bicarb 29, BUN 18, creatinine 0.9, glucose 98, and calcium 9.5. Total bilirubin 0.2. AST 13, ALT 11, and alkaline phosphatase 88. Total protein 8.5. Albumin 2.3. LDH of 152. UA showing 60 to 80 white cells. Urine culture is showing gram-negative rods. ASSESSMENT: This is a 67-year-old lady with history of dementia, who comes in with, 1. Gram-negative urinary tract infection. 2. Anemia. PLAN: 1. We will start the patient on Zosyn. 2. We will follow up cultures and adjust antibiotics accordingly. I would like to thank, Dr. Pineda Cormier, for this consultation. Chanda Mock M.D. DR: MASSIEL JOB#: [id number] CC: Pineda Cormier M.D.; Fax#: [phone] RICKIE HESTER M.D. ; FAX#: [phone]
[2018-07-21 20:00] VITALS: BP 112/74
--- NOTE | 2018-07-21 21:21 | General Progress Note ---
Assessment/Plan Assessment/Plan Assessment - anemia - proctocolitis - UTI Recommendations - Iron on hold - bowel regimen - EGD and flex sig vs colonoscopy in am - await stool w/u Subjective Allergies: Coded Allergies: No Known Allergies (Unverified , 07/21/17) Subjective NAD (+) dark/black stool with laxatives (recent po Iron) d/w family re anemia agreed to EGD/Colon Objective Last 24 Hour Vital Signs Date Time Temp Pulse Resp B/P (MAP) Pulse Ox O2 Delivery O2 Flow Rate FiO2 07/21/18 16:00 97.8 82 18 109/72 (84) 98 97.8 07/21/18 12:00 97.5 89 17 112/70 (84) 97 97.5 07/21/18 09:00 Room Air 07/21/18 08:00 97.7 99 18 105/72 (83) 97 97.7 07/21/18 04:00 97.0 95 18 129/76 (93) 100 97.0 07/21/18 00:00 97.6 87 18 121/80 (94) 100 97.6 Intake and Output 07/20/18 07/21/18 19:00 07:00 Intake Total 500 ml Output Total 120 ml Balance 380 ml Intake Oral 0 ml IV Total 500 ml Output Urine Total 120 ml # Voids 1 5 # Bowel Movements 1 Laboratory Tests 07/21/18 07:40: White Blood Count 13.9H, Red Blood Count 3.19L, Hemoglobin 8.7L, Hematocrit 28.5L, Mean Corpuscular Volume 89, Mean Corpuscular Hemoglobin 27.2, Mean Corpuscular Hemoglobin Concent 30.4L, Red Cell Distribution Width 14.2, Platelet Count 433, Mean Platelet Volume 5.1L, Neutrophils (%) (Auto) 73.9, Lymphocytes (%) (Auto) 20.5, Monocytes (%) (Auto) 3.6, Eosinophils (%) (Auto) 1.7, Basophils (%) (Auto) 0.3, Sodium Level 136, Potassium Level 4.3, Chloride Level 101, Carbon Dioxide Level 29, Anion Gap 6, Blood Urea Nitrogen 18, Creatinine 0.9, Estimat Glomerular Filtration Rate > 60, Glucose Level 98, Calcium Level 9.5, Total Bilirubin 0.2, Aspartate Amino Transf (AST/SGOT) 13L, Alanine Aminotransferase (ALT/SGPT) 11L, Alkaline Phosphatase 88, Total Protein 8.5H, Albumin 2.3L, Globulin 6.2, Albumin/Globulin Ratio 0.4L 07/21/18 18:30: Stool Occult Blood [Pending] Height (Feet): 5 Height (Inches): 3.00 Weight (Pounds): 115 Objective WDWN NCAT supple CTA RRR soft ND No edema Lora Florez MD Jul 21, 2018 21:21
[2018-07-21] MEDS ORDERED: Sorbitol Solution UD 30ml ORAL SCH (22:00)
--- NOTE | 2018-07-21 22:51 | General Progress Note ---
Assessment/Plan Problem List: (1) Hypoalbuminemia ICD Codes: E88.09 - Other disorders of plasma-protein metabolism, not elsewhere classified SNOMED: 568834003 (2) Anemia ICD Codes: D64.9 - Anemia, unspecified SNOMED: 605035586 Qualifiers: Qualified Codes: D64.9 - Anemia, unspecified (3) Gastritis ICD Codes: K29.70 - Gastritis, unspecified, without bleeding SNOMED: 2349493 (4) Generalized weakness ICD Codes: R53.1 - Weakness SNOMED: 62448914 Status: progressing Assessment/Plan anemia djd reviewed labs cbc Subjective ROS Limited/Unobtainable: Yes Allergies: Coded Allergies: No Known Allergies (Unverified , 07/21/17) Objective Last 24 Hour Vital Signs Date Time Temp Pulse Resp B/P (MAP) Pulse Ox O2 Delivery O2 Flow Rate FiO2 07/21/18 20:00 97.1 79 18 112/74 (87) 100 97.1 07/21/18 16:00 97.8 82 18 109/72 (84) 98 97.8 07/21/18 12:00 97.5 89 17 112/70 (84) 97 97.5 07/21/18 09:00 Room Air 07/21/18 08:00 97.7 99 18 105/72 (83) 97 97.7 07/21/18 04:00 97.0 95 18 129/76 (93) 100 97.0 07/21/18 00:00 97.6 87 18 121/80 (94) 100 97.6 Intake and Output 07/20/18 07/21/18 19:00 07:00 Intake Total 500 ml Output Total 120 ml Balance 380 ml Intake Oral 0 ml IV Total 500 ml Output Urine Total 120 ml # Voids 1 5 # Bowel Movements 1 Laboratory Tests 07/21/18 07:40: White Blood Count 13.9H, Red Blood Count 3.19L, Hemoglobin 8.7L, Hematocrit 28.5L, Mean Corpuscular Volume 89, Mean Corpuscular Hemoglobin 27.2, Mean Corpuscular Hemoglobin Concent 30.4L, Red Cell Distribution Width 14.2, Platelet Count 433, Mean Platelet Volume 5.1L, Neutrophils (%) (Auto) 73.9, Lymphocytes (%) (Auto) 20.5, Monocytes (%) (Auto) 3.6, Eosinophils (%) (Auto) 1.7, Basophils (%) (Auto) 0.3, Sodium Level 136, Potassium Level 4.3, Chloride Level 101, Carbon Dioxide Level 29, Anion Gap 6, Blood Urea Nitrogen 18, Creatinine 0.9, Estimat Glomerular Filtration Rate > 60, Glucose Level 98, Calcium Level 9.5, Total Bilirubin 0.2, Aspartate Amino Transf (AST/SGOT) 13L, Alanine Aminotransferase (ALT/SGPT) 11L, Alkaline Phosphatase 88, Total Protein 8.5H, Albumin 2.3L, Globulin 6.2, Albumin/Globulin Ratio 0.4L 07/21/18 18:30: Stool Occult Blood [Pending] Height (Feet): 5 Height (Inches): 3.00 Weight (Pounds): 115 Cardiovascular: normal rate Respiratory/Chest: lungs clear Abdomen: soft Pineda Cormier MD Jul 21, 2018 22:51
[2018-07-22] VITALS (10 sets, daily range): BP systolic 102–158; BP diastolic 56–87
[2018-07-22] MEDS: D5 1/2NS 1,000 ML IV SCH (04:27)
[2018-07-22] MEDS ORDERED: Fleet's Enema 133ml RECTAL ONE (05:00)
[2018-07-22] MEDS: Piperacillin/Tazobactam 3.375 GM in D5W 110 ML IVPB SCH (05:45)
--- NOTE | 2018-07-22 06:41 | Anethesia Preoperative Eval ---
Anesthesia Pre-op PMH/ROS General Date of Evaluation: Jul 22, 2018 Time of Evaluation: 06:39 Anesthesiologist: petey ASA Score: ASA 3 Mallampati Score Class I : Soft palate, uvula, fauces, pillars visible Class II: Soft palate, uvula, fauces visible Class III: Soft palate, base of uvula visible Class IV: Only hard plate visible Mallampati Classification: Class II Surgeon: hermelindo Diagnosis: anemia Surgical Procedure: egd/colonoscopy Anesthesia History: none Social History: smoking - nonsmoker Family History: no anesthesia problems Allergies: Coded Allergies: No Known Allergies (Unverified , 07/21/17) Medications: see eMAR Past Medical History Neurologic/Psychiatric: Reports: dementia - alzheimer's disease, other - extrmity weakness Endocrine: Reports: hypothyroidism Hematology/Immune: Reports: anemia Anesthesia Pre-op Phys. Exam Physician Exam Last Vital Signs Date Time Temp Pulse Resp B/P (MAP) Pulse Ox O2 Delivery O2 Flow Rate FiO2 07/22/18 04:00 98.8 73 20 158/87 (110) 99 98.8 07/21/18 21:00 Room Air 07/20/18 21:00 2.0 Constitutional: NAD Neurologic: CN 2-12 intact Cardiovascular: RRR Respiratory: CTA Gastrointestinal: S/NT/ND Airway Exam Mallampati Score: Class II MO: limited Neck: flexible TMD: 2fb ROM: limited Anesthesia Pre-op A/P Labs Hematology Test 07/21/18 07:40 White Blood Count 13.9 K/UL (4.8-10.8) H Red Blood Count 3.19 M/UL (4.20-5.40) L Hemoglobin 8.7 G/DL (12.0-16.0) L Hematocrit 28.5 % (37.0-47.0) L Mean Corpuscular Volume 89 FL (80-99) Mean Corpuscular Hemoglobin 27.2 PG (27.0-31.0) Mean Corpuscular Hemoglobin Concent 30.4 G/DL (32.0-36.0) L Red Cell Distribution Width 14.2 % (11.6-14.8) Platelet Count 433 K/UL (150-450) Mean Platelet Volume 5.1 FL (6.5-10.1) L Neutrophils (%) (Auto) 73.9 % (45.0-75.0) Lymphocytes (%) (Auto) 20.5 % (20.0-45.0) Monocytes (%) (Auto) 3.6 % (1.0-10.0) Eosinophils (%) (Auto) 1.7 % (0.0-3.0) Basophils (%) (Auto) 0.3 % (0.0-2.0) Chemistry Test 07/21/18 07:40 Sodium Level 136 MMOL/L (136-145) Potassium Level 4.3 MMOL/L (3.5-5.1) Chloride Level 101 MMOL/L (98-107) Carbon Dioxide Level 29 MMOL/L (21-32) Anion Gap 6 mmol/L (5-15) Blood Urea Nitrogen 18 mg/dL (7-18) Creatinine 0.9 MG/DL (0.55-1.30) Estimat Glomerular Filtration Rate > 60 mL/min (>60) Glucose Level 98 MG/DL (74-106) Calcium Level 9.5 MG/DL (8.5-10.1) Total Bilirubin 0.2 MG/DL (0.2-1.0) Aspartate Amino Transf (AST/SGOT) 13 U/L (15-37) L Alanine Aminotransferase (ALT/SGPT) 11 U/L (12-78) L Alkaline Phosphatase 88 U/L (46-116) Total Protein 8.5 G/DL (6.4-8.2) H Albumin 2.3 G/DL (3.4-5.0) L Globulin 6.2 g/dL Albumin/Globulin Ratio 0.4 (1.0-2.7) L Risk Assessment & Plan Assessment: asa3 Plan: mac Status Change Before Surgery: No Pre-Antibiotics Drug: Celina Aguilera MD Jul 22, 2018 06:41
[2018-07-22] MEDS ORDERED: fentaNYL 100 mcg/2 mL IV PRN (06:45)
[2018-07-22] MEDS ORDERED: Midazolam 2mg/2ml Inj IVP PRN (06:45)
[2018-07-22] MEDS ORDERED: Atropine Inj 1mg/10ml Syr IV PRN (06:45)
[2018-07-22] MEDS ORDERED: DiphenhydrAMINE 50mg/ml Inj IVP PRN (06:45)
[2018-07-22] MEDS ORDERED: Lidocaine 1% MPF 10mg/ml 5ml ONE (07:00)
[2018-07-22] MEDS ORDERED: Propofol 200mg/20ml IV ONE (07:00)
[2018-07-22] MEDS ORDERED: Glycopyrrolate 0.2mg/ml 1ml Vial ONE (07:00)
[2018-07-22] MEDS ORDERED: NS 500ML IVPB ONE (07:05)
--- NOTE | 2018-07-22 07:13 | Pre-Procedure Note/Attestation ---
Pre-Procedure Note/Attestation Complete Prior to Procedure Planned Procedure: not applicable Procedure Narrative: esophagogastroduodenoscopy colon, Indications for Procedure Pre-Operative Diagnosis: anemia, abnormal CT Attestation I attest that I discussed the nature of the procedure; its benefits; risks and complications; and alternatives (and the risks and benefits of such alternatives ), prior to the procedure, with the patient (or the patient's legal office machines sales representative). I attest that, if there was a reasonable possibility of needing a blood transfusion, the patient (or the patient's legal office machines sales representative) was given the [facility] standardized written summary, pursuant to the [place] Blood Safety Act ([place] Health and Safety Code # 1645, as amended). I attest that I re-evaluated the patient just prior to the surgery and that there has been no change in the patient's H&P, except as documented below: Lora Florez MD Jul 22, 2018 07:13
--- NOTE | 2018-07-22 07:18 | General Progress Note ---
Assessment/Plan Assessment/Plan Assessment - anemia - proctocolitis - UTI Recommendations - Iron on hold - bowel regimen - EGD and flex sig vs colonoscopy in am - await stool w/u Subjective Allergies: Coded Allergies: No Known Allergies (Unverified , 07/21/17) Subjective seen in GI lab NPO for EGD/colon no stool results reported yet Objective Last 24 Hour Vital Signs Date Time Temp Pulse Resp B/P (MAP) Pulse Ox O2 Delivery O2 Flow Rate FiO2 07/22/18 04:00 98.8 73 20 158/87 (110) 99 98.8 07/22/18 00:00 97.3 97 18 131/85 (100) 100 97.3 07/21/18 21:00 Room Air 07/21/18 20:00 97.1 79 18 112/74 (87) 100 97.1 07/21/18 16:00 97.8 82 18 109/72 (84) 98 97.8 07/21/18 12:00 97.5 89 17 112/70 (84) 97 97.5 07/21/18 09:00 Room Air 07/21/18 08:00 97.7 99 18 105/72 (83) 97 97.7 Intake and Output 07/21/18 07/22/18 19:00 07:00 Intake Total 830.0 ml 737.5 ml Balance 830.0 ml 737.5 ml IV Total 830.0 ml 737.5 ml # Voids 4 4 # Bowel Movements 8 Laboratory Tests 07/21/18 07:40: White Blood Count 13.9H, Red Blood Count 3.19L, Hemoglobin 8.7L, Hematocrit 28.5L, Mean Corpuscular Volume 89, Mean Corpuscular Hemoglobin 27.2, Mean Corpuscular Hemoglobin Concent 30.4L, Red Cell Distribution Width 14.2, Platelet Count 433, Mean Platelet Volume 5.1L, Neutrophils (%) (Auto) 73.9, Lymphocytes (%) (Auto) 20.5, Monocytes (%) (Auto) 3.6, Eosinophils (%) (Auto) 1.7, Basophils (%) (Auto) 0.3, Sodium Level 136, Potassium Level 4.3, Chloride Level 101, Carbon Dioxide Level 29, Anion Gap 6, Blood Urea Nitrogen 18, Creatinine 0.9, Estimat Glomerular Filtration Rate > 60, Glucose Level 98, Calcium Level 9.5, Total Bilirubin 0.2, Aspartate Amino Transf (AST/SGOT) 13L, Alanine Aminotransferase (ALT/SGPT) 11L, Alkaline Phosphatase 88, Total Protein 8.5H, Albumin 2.3L, Globulin 6.2, Albumin/Globulin Ratio 0.4L 07/21/18 18:30: Stool Occult Blood [Pending] Height (Feet): 5 Height (Inches): 5.00 Weight (Pounds): 115 Objective WDWN NCAT supple CTA RRR soft ND No edema Lora Florez MD Jul 22, 2018 07:18
[2018-07-22 08:26] LABS: HEMATOCRIT 26.2 % (37.0-47.0); HEMOGLOBIN 7.9 G/DL (12.0-16.0); MEAN CORPUSCULAR VOLUME 90 FL (80-99); PLATELET COUNT 428 K/UL (150-450); RED BLOOD COUNT 2.89 M/UL (4.20-5.40); RED CELL DISTRIBUTION WIDTH 14.3 % (11.6-14.8); WHITE BLOOD COUNT 11.1 K/UL (4.8-10.8)
--- NOTE | 2018-07-22 08:35 | Immediate Post-Op Evaluation ---
Immediate Post-Op Evalulation Immediate Post-Op Evalulation Procedure: egd/colonoscopy Date of Evaluation: Jul 22, 2018 Time of Evaluation: 08:15 IV Fluids: 350ml 0.9ns Blood Products: none Estimated Blood Loss: negligible Blood Pressure Systolic: 134 Blood Pressure Diastolic: 86 Pulse Rate: 97 Respiratory Rate: 18 O2 Sat by Pulse Oximetry: 100 Temperature (Fahrenheit): 97.2 Pain Score (1-10): 0 Nausea: No Vomiting: No Complications none Hydration Status: adequate Drug: Celina Aguilera MD Jul 22, 2018 08:35
--- NOTE | 2018-07-22 08:37 | 48 Hour Post Anesthesia Eval ---
Post Anesthesia Evaluation Procedure: egd/colonoscopy Date of Evaluation: Jul 22, 2018 Time of Evaluation: 08:17 Blood Pressure Systolic: 119 0: 83 Pulse Rate: 91 Respiratory Rate: 18 Temperature (Fahrenheit): 97.2 O2 Sat by Pulse Oximetry: 100 Airway: patent Nausea: No Vomiting: No Pain Intensity: 0 Hydration Status: adequate Cardiopulmonary Status: stable Mental Status/LOC: patient returned to baseline Post-Anesthesia Complications: none Follow-up care needed: N/A Celina Gerber MD Jul 22, 2018 08:37
[2018-07-22 08:42] LABS: ALANINE AMINOTRANSFERASE 12 U/L (12-78); ALBUMIN 2.3 G/DL (3.4-5.0); ALBUMIN/GLOBULIN RATIO 0.4 (1.0-2.7); ALKALINE PHOSPHATASE 87 U/L (46-116); ANION GAP 6 mmol/L (5-15); ASPARTATE AMINO TRANSFERASE 13 U/L (15-37); BILIRUBIN,TOTAL 0.5 MG/DL (0.2-1.0); BLOOD UREA NITROGEN 15 mg/dL (7-18); CALCIUM 9.4 MG/DL (8.5-10.1); CARBON DIOXIDE 32 MMOL/L (21-32); CHLORIDE 103 MMOL/L (98-107); CREATININE 1.2 MG/DL (0.55-1.30); POTASSIUM 3.8 MMOL/L (3.5-5.1); SODIUM 141 MMOL/L (136-145)
[2018-07-22] MEDS: Pantoprazole Inj IVP SCH (10:14)
[2018-07-22] MEDS: Ascorbic Acid 500mg tab ORAL SCH ×2 (10:14→17:38)
[2018-07-22] MEDS: Docusate 100mg cap ORAL SCH ×2 (10:14→17:38)
--- NOTE | 2018-07-22 10:43 | General Progress Note ---
Assessment/Plan Problem List: (1) Hypoalbuminemia ICD Codes: E88.09 - Other disorders of plasma-protein metabolism, not elsewhere classified SNOMED: 277624000 (2) Anemia ICD Codes: D64.9 - Anemia, unspecified SNOMED: 410120149 Qualifiers: Qualified Codes: D64.9 - Anemia, unspecified (3) Gastritis ICD Codes: K29.70 - Gastritis, unspecified, without bleeding SNOMED: 7113433 (4) Generalized weakness ICD Codes: R53.1 - Weakness SNOMED: 41704742 Assessment/Plan anemia improving s/p endoscopy and per gi is normal and cleared to go ordered cbc and if cleared by gi and heme/onc can go back to snf reviewed labs cbc today Subjective ROS Limited/Unobtainable: Yes Allergies: Coded Allergies: No Known Allergies (Unverified , 07/21/17) Objective Last 24 Hour Vital Signs Date Time Temp Pulse Resp B/P (MAP) Pulse Ox O2 Delivery O2 Flow Rate FiO2 07/22/18 08:37 207.0 91 18 100 07/22/18 08:35 207.0 97 18 100 07/22/18 08:27 97.8 91 24 124/86 100 Nasal Cannula 3 97.8 07/22/18 08:13 91 18 119/83 100 Nasal Cannula 3 07/22/18 08:08 93 16 127/84 100 Nasal Cannula 3 07/22/18 08:03 97.2 97 18 134/86 100 Nasal Cannula 3 97.2 07/22/18 08:00 99.3 70 19 119/70 (86) 99 99.3 07/22/18 04:00 98.8 73 20 158/87 (110) 99 98.8 07/22/18 00:00 97.3 97 18 131/85 (100) 100 97.3 07/21/18 21:00 Room Air 07/21/18 20:00 97.1 79 18 112/74 (87) 100 97.1 07/21/18 16:00 97.8 82 18 109/72 (84) 98 97.8 07/21/18 12:00 97.5 89 17 112/70 (84) 97 97.5 Intake and Output 07/21/18 07/22/18 19:00 07:00 Intake Total 830.0 ml 737.5 ml Balance 830.0 ml 737.5 ml IV Total 830.0 ml 737.5 ml # Voids 4 4 # Bowel Movements 8 Laboratory Tests 07/21/18 18:30: Stool Occult Blood [Pending] 07/22/18 06:40: White Blood Count 11.1H, Red Blood Count 2.89L, Hemoglobin 7.9L, Hematocrit 26.2L, Mean Corpuscular Volume 90, Mean Corpuscular Hemoglobin 27.3, Mean Corpuscular Hemoglobin Concent 30.1L, Red Cell Distribution Width 14.3, Platelet Count 428, Mean Platelet Volume 5.2L, Neutrophils (%) (Auto) , Lymphocytes (%) (Auto) , Monocytes (%) (Auto) , Eosinophils (%) (Auto) , Basophils (%) (Auto) , Differential Total Cells Counted 100, Neutrophils % ( Manual) 60, Lymphocytes % (Manual) 34, Monocytes % (Manual) 4, Eosinophils % ( Manual) 1, Basophils % (Manual) 1, Band Neutrophils 0, Platelet Estimate Adequate, Platelet Morphology Normal, Hypochromasia 1+, Sodium Level 141, Potassium Level 3.8, Chloride Level 103, Carbon Dioxide Level 32, Anion Gap 6, Blood Urea Nitrogen 15, Creatinine 1.2, Estimat Glomerular Filtration Rate 45.1 , Glucose Level 101, Calcium Level 9.4, Total Bilirubin 0.5, Aspartate Amino Transf (AST/SGOT) 13L, Alanine Aminotransferase (ALT/SGPT) 12, Alkaline Phosphatase 87, Total Protein 8.4H, Total Protein (PEP) [Pending], Albumin 2.3L , Albumin (PEP) [Pending], Globulin 6.1, Globulin (PEP) [Pending], Albumin/ Globulin Ratio [Pending], Cejka-[id number] [Pending], Sfxuo-2-Xpactgevx [ Pending], Beta Globulins [Pending], Beta Gamma Globulin [Pending], PEP Abnormal Protein Bands [Pending], Protein Electrophoresis Interpret [Pending], Free Thyroxine 1.65H, Free Triiodothyronine 1.8L Height (Feet): 5 Height (Inches): 5.00 Weight (Pounds): 115 Pineda Cormier MD Jul 22, 2018 10:43
--- NOTE | 2018-07-22 12:44 | Infectious Diseases Prog Note ---
Assessment/Plan Assessment/Plan A; Proteus UTI Anemia Dementia Hypothyroidism P; Discontinue Zosyn PO Amoxicillin X 3 days Agree with discharge Subjective ROS Limited/Unobtainable: Yes Constitutional: Reports: no symptoms Gastrointestinal/Abdominal: Reports: no symptoms Genitourinary: Reports: no symptoms Allergies: Coded Allergies: No Known Allergies (Unverified , 07/21/17) Objective Vital Signs Last 24 Hour Vital Signs Date Time Temp Pulse Resp B/P (MAP) Pulse Ox O2 Delivery O2 Flow Rate FiO2 07/22/18 08:37 207.0 91 18 100 07/22/18 08:35 207.0 97 18 100 07/22/18 08:27 97.8 91 24 124/86 100 Nasal Cannula 3 97.8 07/22/18 08:13 91 18 119/83 100 Nasal Cannula 3 07/22/18 08:08 93 16 127/84 100 Nasal Cannula 3 07/22/18 08:03 97.2 97 18 134/86 100 Nasal Cannula 3 97.2 07/22/18 08:00 99.3 70 19 119/70 (86) 99 99.3 07/22/18 04:00 98.8 73 20 158/87 (110) 99 98.8 07/22/18 00:00 97.3 97 18 131/85 (100) 100 97.3 07/21/18 21:00 Room Air 07/21/18 20:00 97.1 79 18 112/74 (87) 100 97.1 07/21/18 16:00 97.8 82 18 109/72 (84) 98 97.8 Height (Feet): 5 Height (Inches): 5.00 Weight (Pounds): 115 General Appearance: no acute distress HEENT: mucous membranes moist Respiratory/Chest: lungs clear Cardiovascular: normal rate Abdomen: soft, non tender Extremities: no edema Neurologic/Psychiatric: alert, responsive Microbiology Date/Time Source Procedure Growth Status 07/20/18 13:55 Nasal Nares MRSA Culture - Final NO METHICILLIN RESISTANT STAPH AUREUS... Complete 07/21/18 18:30 Stool Clostridium difficile Toxin Assay - Final Complete 07/20/18 13:55 Urine,Clean Catch Urine Culture - Final Proteus Mirabilis Complete 07/20/18 13:55 Rectal Mucosa VRE Culture - Final NO VANCOMYCIN RESISTANT ENTEROCOCCUS ... Resulted 07/20/18 13:55 Rectal Mucosa - Preliminary Resulted Laboratory Tests Test 07/21/18 18:30 07/22/18 06:40 Stool Occult Blood Negative (NEGATIVE) White Blood Count 11.1 K/UL (4.8-10.8) H Red Blood Count 2.89 M/UL (4.20-5.40) L Hemoglobin 7.9 G/DL (12.0-16.0) L Hematocrit 26.2 % (37.0-47.0) L Mean Corpuscular Volume 90 FL (80-99) Mean Corpuscular Hemoglobin 27.3 PG (27.0-31.0) Mean Corpuscular Hemoglobin Concent 30.1 G/DL (32.0-36.0) L Red Cell Distribution Width 14.3 % (11.6-14.8) Platelet Count 428 K/UL (150-450) Mean Platelet Volume 5.2 FL (6.5-10.1) L Neutrophils (%) (Auto) % (45.0-75.0) Lymphocytes (%) (Auto) % (20.0-45.0) Monocytes (%) (Auto) % (1.0-10.0) Eosinophils (%) (Auto) % (0.0-3.0) Basophils (%) (Auto) % (0.0-2.0) Differential Total Cells Counted 100 Neutrophils % (Manual) 60 % (45-75) Lymphocytes % (Manual) 34 % (20-45) Monocytes % (Manual) 4 % (1-10) Eosinophils % (Manual) 1 % (0-3) Basophils % (Manual) 1 % (0-2) Band Neutrophils 0 % (0-8) Platelet Estimate Adequate Platelet Morphology Normal Hypochromasia 1+ Sodium Level 141 MMOL/L (136-145) Potassium Level 3.8 MMOL/L (3.5-5.1) Chloride Level 103 MMOL/L (98-107) Carbon Dioxide Level 32 MMOL/L (21-32) Anion Gap 6 mmol/L (5-15) Blood Urea Nitrogen 15 mg/dL (7-18) Creatinine 1.2 MG/DL (0.55-1.30) Estimat Glomerular Filtration Rate 45.1 mL/min (>60) Glucose Level 101 MG/DL (74-106) Calcium Level 9.4 MG/DL (8.5-10.1) Total Bilirubin 0.5 MG/DL (0.2-1.0) Aspartate Amino Transf (AST/SGOT) 13 U/L (15-37) L Alanine Aminotransferase (ALT/SGPT) 12 U/L (12-78) Alkaline Phosphatase 87 U/L (46-116) Total Protein 8.4 G/DL (6.4-8.2) H Total Protein (PEP) Pending Albumin 2.3 G/DL (3.4-5.0) L Albumin (PEP) Pending Globulin 6.1 g/dL Globulin (PEP) Pending Albumin/Globulin Ratio Pending Vsuwb-7-Nkchdfazb Pending Ogfie-1-Jmasehyay Pending Beta Globulins Pending Beta Gamma Globulin Pending PEP Abnormal Protein Bands Pending Protein Electrophoresis Interpret Pending Free Thyroxine 1.65 NG/DL (0.76-1.46) H Free Triiodothyronine 1.8 pg/mL (2.3-4.2) L Current Medications Medications (Trade) Dose Ordered Sig/Armani Route PRN Reason Start Time Stop Time Status Last Admin Dose Admin Acetaminophen (Tylenol) 650 mg Q4H PRN ORAL Mild Pain/Temp > 100.5 07/20/18 15:15 08/19/18 15:14 Al Hydroxide/Mg Hydroxide (Mylanta) 15 ml Q1H PRN ORAL gi upset 07/22/18 06:45 07/22/18 15:00 Ascorbic Acid (Vitamin C) 500 mg TWICE A DAY ORAL 07/20/18 18:00 08/19/18 17:59 07/22/18 10:14 Atropine Sulfate (Atropine) 0.5 mg Q5M PRN IV bpm less than 45 07/22/18 06:45 07/22/18 15:00 Diphenhydramine HCl (Benadryl) 25 mg Q15M PRN IVP Itching 07/22/18 06:45 07/22/18 15:00 Docusate Sodium (Colace) 100 mg TWICE A DAY ORAL 07/20/18 18:00 08/19/18 17:59 07/21/18 17:22 Fentanyl Citrate (Sublimaze 100 mcg/2 mL) 25 mcg Q10M PRN IV Moderate Pain (Pain Scale 4-6) 07/22/18 06:45 07/22/18 15:00 Hydralazine HCl (Apresoline) 5 mg Q30M PRN IV SBP>160 OR___/DBP>90 OR___ 07/22/18 06:45 07/22/18 15:00 Levothyroxine Sodium (Synthroid) 150 mcg DAILY@0630 ORAL 07/21/18 06:30 08/20/18 06:29 07/21/18 05:50 Midazolam HCl (Versed 2mg/2ml vial) 1 mg Q15M PRN IVP For Anxiety 07/22/18 06:45 07/22/18 15:00 Mirtazapine (Remeron) 15 mg BEDTIME ORAL 07/20/18 21:00 08/19/18 20:59 07/21/18 21:19 Multivitamins (Multivitamins) 1 tab DAILY ORAL 07/21/18 09:00 08/20/18 08:59 07/22/18 10:14 Ondansetron HCl (Zofran) 4 mg Q1H PRN IVP Nausea & Vomiting 07/22/18 06:45 07/22/18 15:00 Ondansetron HCl (Zofran) 4 mg Q6H PRN IVP Nausea & Vomiting 07/20/18 15:15 08/19/18 15:14 Pantoprazole (Protonix) 40 mg DAILY IVP 07/21/18 09:00 08/20/18 08:59 07/22/18 10:14 Piperacillin Sod/ Tazobactam Sod 3.375 gm/Dextrose 110 ml @ 27.5 mls/hr EVERY 8 HOURS IVPB 07/21/18 12:00 07/26/18 11:59 07/22/18 05:45 Rickie Vanessa MD Jul 22, 2018 12:44
[2018-07-22] MEDS: Amoxicillin 250mg/5ml susp 150ml GT SCH ×2 (14:27→22:23)
--- NOTE | 2018-07-22 15:00 | Operative Note - Dictated ---
DATE OF OPERATION: 07/22/2018 GASTROENTEROLOGY PROCEDURE REPORT PROCEDURE: Upper gastrointestinal endoscopy with biopsy as well as colonoscopy with biopsy. SURGEON: Lora Florez M.D. ANESTHESIA: Please see the separate anesthesiologist's notes for details. PRE-ENDOSCOPIC DIAGNOSIS: Anemia. POST-ENDOSCOPIC DIAGNOSES: 1. Normal upper and lower gastrointestinal endoscopy, status post random biopsy of the duodenum, terminal ileum, and rectosigmoid area. 2. There were no mucosal abnormalities were identified in the rectosigmoid area. DESCRIPTION OF PROCEDURE: The procedure, its risks, indications, alternatives, and possible complications including, but not limited to bleeding, infection, perforation, , and anesthesia complications were explained to the patient's family and an informed consent was obtained. The patient was then sedated in the left lateral decubitus position and a diagnostic upper endoscope was introduced through the oropharynx and advanced to the duodenum. The endoscope was then withdrawn and a colonoscope was introduced into the rectum and advanced to the terminal ileum for about 10 cm. The colonoscope was withdrawn and the patient was sent to recovery in good condition. The findings are as listed above. RECOMMENDATIONS: 1. Follow up biopsy results. 2. Resume oral diet. 3. Follow laboratory parameters. Lora Florez M.D. DR: RAFA JOB#: [id number] CC:
[2018-07-22] MEDS ORDERED: SYNTHROID150 MCG ORAL (15:17)
[2018-07-22] MEDS ORDERED: PROTONIX40 MG ORAL (15:18)
[2018-07-22] MEDS ORDERED: AMOXIL250 MG/5 M ORAL (15:20)
--- NOTE | 2018-07-22 15:24 | General Progress Note ---
Assessment/Plan Assessment/Plan Assessment and Recs: #. Anemia, secondary to chronic disease. Anemia workup has been reviewed. --> transfuse if hgb below 7 --> given blood on 07/22 --> stable for dc --> ordered t3, t4, folate, spep, upep --> watch counts, has currently improved #. Elevated CEA, rule out malignancy --> s/p egd/colo with polyectomy.Have reviewed pathology report. Negative for carcinoma --> colo reviewed here, no further eval, no bleeding --> cea reviewed, unchanged #. Macrocytosis 2/2 hypothyroid. The patient is on Synthroid. #. Generalized weakness. #. Hyperlipidemia. #. Right 2 cm ovarian cyst #. T12 compression fracture probably old. Subjective Constitutional: Denies: no symptoms, chills, diaphoresis, fever, malaise, weakness, other Cardiovascular: Denies: no symptoms, chest pain, edema, irregular heart rate, lightheadedness, palpitations, syncope, other Respiratory: Denies: no symptoms, cough, orthopnea, shortness of breath, SOB with excertion, SOB at rest, sputum, stridor, wheezing, other Gastrointestinal/Abdominal: Denies: no symptoms, abdomen distended, abdominal pain, black stools, tarry stools, blood in stool, constipated, diarrhea, difficulty swallowing, nausea, poor appetite, poor fluid intake, rectal bleeding , vomiting, other Genitourinary: Denies: no symptoms, burning, discharge, frequency, flank pain, hematuria, incontinence, pain, urgency, other Neurologic/Psychiatric: Denies: no symptoms, anxiety, depressed, emotional problems, headache, numbness, paresthesia, pre-existing deficit, seizure, tingling, tremors, weakness, other Endocrine: Denies: no symptoms, excessive sweating, flushing, intolerance to cold, intolerance to heat, increased hunger, increased thirst, increased urine, unexplained weight gain, unexplained weight loss, other Hematologic/Lymphatic: Denies: no symptoms, anemia, easy bleeding, easy bruising, other Allergies: Coded Allergies: No Known Allergies (Unverified , 07/21/17) Subjective feeling better, colo results reviewed Objective Last 24 Hour Vital Signs Date Time Temp Pulse Resp B/P (MAP) Pulse Ox O2 Delivery O2 Flow Rate FiO2 07/22/18 12:00 98.0 97 20 102/77 (85) 100 98.0 07/22/18 09:00 Room Air 07/22/18 08:37 207.0 91 18 100 07/22/18 08:35 207.0 97 18 100 07/22/18 08:27 97.8 91 24 124/86 100 Nasal Cannula 3 97.8 07/22/18 08:13 91 18 119/83 100 Nasal Cannula 3 07/22/18 08:08 93 16 127/84 100 Nasal Cannula 3 07/22/18 08:03 97.2 97 18 134/86 100 Nasal Cannula 3 97.2 07/22/18 08:00 99.3 70 19 119/70 (86) 99 99.3 07/22/18 04:00 98.8 73 20 158/87 (110) 99 98.8 07/22/18 00:00 97.3 97 18 131/85 (100) 100 97.3 07/21/18 21:00 Room Air 07/21/18 20:00 97.1 79 18 112/74 (87) 100 97.1 07/21/18 16:00 97.8 82 18 109/72 (84) 98 97.8 Intake and Output 07/21/18 07/22/18 19:00 07:00 Intake Total 830.0 ml 737.5 ml Balance 830.0 ml 737.5 ml IV Total 830.0 ml 737.5 ml # Voids 4 4 # Bowel Movements 8 Laboratory Tests 07/21/18 18:30: Stool Occult Blood Negative 07/22/18 06:40: White Blood Count 11.1H, Red Blood Count 2.89L, Hemoglobin 7.9L, Hematocrit 26.2L, Mean Corpuscular Volume 90, Mean Corpuscular Hemoglobin 27.3, Mean Corpuscular Hemoglobin Concent 30.1L, Red Cell Distribution Width 14.3, Platelet Count 428, Mean Platelet Volume 5.2L, Neutrophils (%) (Auto) , Lymphocytes (%) (Auto) , Monocytes (%) (Auto) , Eosinophils (%) (Auto) , Basophils (%) (Auto) , Differential Total Cells Counted 100, Neutrophils % ( Manual) 60, Lymphocytes % (Manual) 34, Monocytes % (Manual) 4, Eosinophils % ( Manual) 1, Basophils % (Manual) 1, Band Neutrophils 0, Platelet Estimate Adequate, Platelet Morphology Normal, Hypochromasia 1+, Sodium Level 141, Potassium Level 3.8, Chloride Level 103, Carbon Dioxide Level 32, Anion Gap 6, Blood Urea Nitrogen 15, Creatinine 1.2, Estimat Glomerular Filtration Rate 45.1 , Glucose Level 101, Calcium Level 9.4, Total Bilirubin 0.5, Aspartate Amino Transf (AST/SGOT) 13L, Alanine Aminotransferase (ALT/SGPT) 12, Alkaline Phosphatase 87, Total Protein 8.4H, Total Protein (PEP) [Pending], Albumin 2.3L , Albumin (PEP) [Pending], Globulin 6.1, Globulin (PEP) [Pending], Albumin/ Globulin Ratio [Pending], Iutnp-2-Hxtignwml [Pending], Hnosi-5-Ykwlvjafs [ Pending], Beta Globulins [Pending], Beta Gamma Globulin [Pending], PEP Abnormal Protein Bands [Pending], Protein Electrophoresis Interpret [Pending], Free Thyroxine 1.65H, Free Triiodothyronine 1.8L Height (Feet): 5 Height (Inches): 5.00 Weight (Pounds): 115 General Appearance: alert EENT: TMs normal Cardiovascular: regular rhythm Respiratory/Chest: lungs clear Abdomen: no mass Extremities: non-tender Edema: 1+ Leg (L), 1+ Leg (R) Edema: mild edema Neurologic: alert Arturo Newton MD Jul 22, 2018 15:24
--- NOTE | 2018-07-22 21:04 | Endoscopy Procedure Note ---
Endoscopy Procedure Note General Indication for Procedure: anemia Procedures Performed: EGD, colonoscopy Operative Findings/Diagnosis: nl Specimen: yes Pt Tolerated Procedure Well: Yes Estimated Blood Loss: none Anesthesia Anesthesiologist: see report Anesthesia: MAC Medications Medication Given: see anesthesia record Inserted Devices Implant(s) used?: No GI Core Measures 50 yrs or older w/o bx or poly: Not Applicable 10yrs. F/U not recommended: Not Applicable If not recommended, why?: Lora Florez MD Jul 22, 2018 21:04
--- NOTE | 2018-07-22 21:05 | Brief Operative Note ---
Immediate Post Operative Note Operative Note Chief Complaint: anemia Pre-op Diagnosis: anemia, abnormal CT Procedure: esophagogastroduodenoscopy colon Post-op Diagnosis: nl Surgeon: hermelindo Anesthesiologist: ksenia Specimen: yes Complications: none Condition: stable Fluids: recorded Estimated Blood Loss: none Drains: none Implant(s) used?: No Lora Florez MD Jul 22, 2018 21:05
--- NOTE | 2018-07-22 23:51 | Consultation ---
History of Present Illness General Date patient seen: Jul 21, 2018 Chief Complaint: Abnormal Labs Present Illness HPI 67-year-old, Urdu-speaking woman from a [facility] who was brought in due to abnormal labs with low hemoglobin. the pt was dx with uti and pw waxing and waning of consciousness. the pt has cognitive impairment and was agitated at times Allergies: Coded Allergies: No Known Allergies (Unverified , 07/21/17) Medication History Scheduled Amoxicillin* (Amoxil*), 10 ML ORAL Q8HR, (Reported) Ascorbic Acid* (Ascorbic Acid*), 500 MG ORAL DAILY, (Reported) Docusate Sodium* (Docusate Sodium*), 100 MG ORAL TWICE A DAY, (Reported) Ferrous Sulfate* (Ferrous Sulfate*), 325 MG ORAL THREE TIMES A DAY, (Reported) Levothyroxine Sodium* (Levothyroxine Sodium*), 100 MCG ORAL BEFORE BREAKFAST, ( Reported) Levothyroxine Sodium* (Synthroid*), 150 MCG ORAL ACBREAKFAST, (Reported) Mirtazapine* (Remeron*), 15 MG ORAL BEDTIME, (Reported) Multivitamins* (Multivitamins*), 1 TAB ORAL DAILY, (Reported) Omeprazole (Omeprazole), 40 MG ORAL DAILY, (Reported) Pantoprazole* (Protonix*), 40 MG IV DAILY, (Reported) Pantoprazole* (Protonix*), 40 MG ORAL DAILY, (Reported) Scheduled PRN Acetaminophen* (Acetaminophen 325MG Tablet*), 650 MG ORAL Q4H PRN for Mild Pain (Pain Scale 1-3), (Reported) Ondansetron* (Zofran 4 Mg/2 Ml Vial*), 4 MG IVP Q6H PRN for Nausea & Vomiting, ( Reported) Patient History Limited by: medical condition History Provided By: Patient, Medical Record, PMD Healthcare decision maker Resuscitation status Full Code Advanced Directive on File No Past Medical/Surgical History Past Medical/Surgical History: (1) Elevated CEA (2) Colon polyps (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 (4) Bradycardia (5) Anemia (6) Generalized weakness (7) Gastritis (8) Hypoalbuminemia (9) Hypothyroidism (10) UTI (urinary tract infection) (11) GERD (gastroesophageal reflux disease) Review of Systems Psychiatric: Reports: prior hx, anxiety, emotional problems, hallucinations Physical Exam General Appearance: no apparent distress, alert, agitated Last 24 Hour Vital Signs Date Time Temp Pulse Resp B/P (MAP) Pulse Ox O2 Delivery O2 Flow Rate FiO2 07/22/18 22:45 Room Air 07/22/18 20:00 98.6 88 18 137/56 (83) 96 98.6 07/22/18 16:00 97.4 94 19 109/74 (86) 99 97.4 07/22/18 12:00 98.0 97 20 102/77 (85) 100 98.0 07/22/18 09:00 Room Air 07/22/18 08:37 207.0 91 18 100 07/22/18 08:35 207.0 97 18 100 07/22/18 08:27 97.8 91 24 124/86 100 Nasal Cannula 3 97.8 07/22/18 08:13 91 18 119/83 100 Nasal Cannula 3 07/22/18 08:08 93 16 127/84 100 Nasal Cannula 3 07/22/18 08:03 97.2 97 18 134/86 100 Nasal Cannula 3 97.2 07/22/18 08:00 99.3 70 19 119/70 (86) 99 99.3 07/22/18 04:00 98.8 73 20 158/87 (110) 99 98.8 07/22/18 00:00 97.3 97 18 131/85 (100) 100 97.3 Intake and Output 07/21/18 07/22/18 19:00 07:00 Intake Total 830.0 ml 737.5 ml Balance 830.0 ml 737.5 ml IV Total 830.0 ml 737.5 ml # Voids 4 4 # Bowel Movements 8 Laboratory Tests Test 07/22/18 06:40 White Blood Count 11.1 K/UL (4.8-10.8) H Red Blood Count 2.89 M/UL (4.20-5.40) L Hemoglobin 7.9 G/DL (12.0-16.0) L Hematocrit 26.2 % (37.0-47.0) L Mean Corpuscular Volume 90 FL (80-99) Mean Corpuscular Hemoglobin 27.3 PG (27.0-31.0) Mean Corpuscular Hemoglobin Concent 30.1 G/DL (32.0-36.0) L Red Cell Distribution Width 14.3 % (11.6-14.8) Platelet Count 428 K/UL (150-450) Mean Platelet Volume 5.2 FL (6.5-10.1) L Neutrophils (%) (Auto) % (45.0-75.0) Lymphocytes (%) (Auto) % (20.0-45.0) Monocytes (%) (Auto) % (1.0-10.0) Eosinophils (%) (Auto) % (0.0-3.0) Basophils (%) (Auto) % (0.0-2.0) Differential Total Cells Counted 100 Neutrophils % (Manual) 60 % (45-75) Lymphocytes % (Manual) 34 % (20-45) Monocytes % (Manual) 4 % (1-10) Eosinophils % (Manual) 1 % (0-3) Basophils % (Manual) 1 % (0-2) Band Neutrophils 0 % (0-8) Platelet Estimate Adequate Platelet Morphology Normal Hypochromasia 1+ Sodium Level 141 MMOL/L (136-145) Potassium Level 3.8 MMOL/L (3.5-5.1) Chloride Level 103 MMOL/L (98-107) Carbon Dioxide Level 32 MMOL/L (21-32) Anion Gap 6 mmol/L (5-15) Blood Urea Nitrogen 15 mg/dL (7-18) Creatinine 1.2 MG/DL (0.55-1.30) Estimat Glomerular Filtration Rate 45.1 mL/min (>60) Glucose Level 101 MG/DL (74-106) Calcium Level 9.4 MG/DL (8.5-10.1) Total Bilirubin 0.5 MG/DL (0.2-1.0) Aspartate Amino Transf (AST/SGOT) 13 U/L (15-37) L Alanine Aminotransferase (ALT/SGPT) 12 U/L (12-78) Alkaline Phosphatase 87 U/L (46-116) Total Protein 8.4 G/DL (6.4-8.2) H Total Protein (PEP) Pending Albumin 2.3 G/DL (3.4-5.0) L Albumin (PEP) Pending Globulin 6.1 g/dL Globulin (PEP) Pending Albumin/Globulin Ratio Pending Msizz-3-Lbwdtvnoh Pending Ffiry-0-Acwynfkrp Pending Beta Globulins Pending Beta Gamma Globulin Pending PEP Abnormal Protein Bands Pending Protein Electrophoresis Interpret Pending Free Thyroxine 1.65 NG/DL (0.76-1.46) H Free Triiodothyronine 1.8 pg/mL (2.3-4.2) L Height (Feet): 5 Height (Inches): 5.00 Weight (Pounds): 115 Medications Current Medications Medications (Trade) Dose Ordered Sig/Armani Route PRN Reason Start Time Stop Time Status Last Admin Dose Admin Acetaminophen (Tylenol) 650 mg Q4H PRN ORAL Mild Pain/Temp > 100.5 07/20/18 15:15 08/19/18 15:14 Amoxicillin (Amoxil) 500 mg EVERY 8 HOURS GT 07/22/18 14:00 07/25/18 13:59 07/22/18 22:23 Ascorbic Acid (Vitamin C) 500 mg TWICE A DAY ORAL 07/20/18 18:00 08/19/18 17:59 07/22/18 17:38 Docusate Sodium (Colace) 100 mg TWICE A DAY ORAL 07/20/18 18:00 08/19/18 17:59 07/21/18 17:22 Levothyroxine Sodium (Synthroid) 150 mcg DAILY@0630 ORAL 07/21/18 06:30 08/20/18 06:29 07/21/18 05:50 Mirtazapine (Remeron) 15 mg BEDTIME ORAL 07/20/18 21:00 08/19/18 20:59 07/22/18 21:42 Multivitamins (Multivitamins) 1 tab DAILY ORAL 07/21/18 09:00 08/20/18 08:59 07/22/18 10:14 Ondansetron HCl (Zofran) 4 mg Q6H PRN IVP Nausea & Vomiting 07/20/18 15:15 08/19/18 15:14 Pantoprazole (Protonix) 40 mg DAILY IVP 07/21/18 09:00 08/20/18 08:59 07/22/18 10:14 Assessment/Plan Problem List: (1) encephalopathy due to Assessment/Plan encephalopathy due to [facility] seroquel prn ativan prn provided ro/Aydee Fitzpatrick MD Jul 22, 2018 23:51
--- NOTE | 2018-07-22 23:52 | General Progress Note ---
Assessment/Plan Status: unchanged Assessment/Plan encephalopathy due to c seroquel prn ativan prn provided ro/st Subjective Date patient seen: Jul 20, 2018 Neurologic/Psychiatric: Reports: anxiety, depressed, emotional problems Allergies: Coded Allergies: No Known Allergies (Unverified , 07/21/17) Objective Last 24 Hour Vital Signs Date Time Temp Pulse Resp B/P (MAP) Pulse Ox O2 Delivery O2 Flow Rate FiO2 07/22/18 22:45 Room Air 07/22/18 20:00 98.6 88 18 137/56 (83) 96 98.6 07/22/18 16:00 97.4 94 19 109/74 (86) 99 97.4 07/22/18 12:00 98.0 97 20 102/77 (85) 100 98.0 07/22/18 09:00 Room Air 07/22/18 08:37 207.0 91 18 100 07/22/18 08:35 207.0 97 18 100 07/22/18 08:27 97.8 91 24 124/86 100 Nasal Cannula 3 97.8 07/22/18 08:13 91 18 119/83 100 Nasal Cannula 3 07/22/18 08:08 93 16 127/84 100 Nasal Cannula 3 07/22/18 08:03 97.2 97 18 134/86 100 Nasal Cannula 3 97.2 07/22/18 08:00 99.3 70 19 119/70 (86) 99 99.3 07/22/18 04:00 98.8 73 20 158/87 (110) 99 98.8 07/22/18 00:00 97.3 97 18 131/85 (100) 100 97.3 Intake and Output 07/21/18 07/22/18 19:00 07:00 Intake Total 830.0 ml 737.5 ml Balance 830.0 ml 737.5 ml IV Total 830.0 ml 737.5 ml # Voids 4 4 # Bowel Movements 8 Laboratory Tests 07/22/18 06:40: White Blood Count 11.1H, Red Blood Count 2.89L, Hemoglobin 7.9L, Hematocrit 26.2L, Mean Corpuscular Volume 90, Mean Corpuscular Hemoglobin 27.3, Mean Corpuscular Hemoglobin Concent 30.1L, Red Cell Distribution Width 14.3, Platelet Count 428, Mean Platelet Volume 5.2L, Neutrophils (%) (Auto) , Lymphocytes (%) (Auto) , Monocytes (%) (Auto) , Eosinophils (%) (Auto) , Basophils (%) (Auto) , Differential Total Cells Counted 100, Neutrophils % ( Manual) 60, Lymphocytes % (Manual) 34, Monocytes % (Manual) 4, Eosinophils % ( Manual) 1, Basophils % (Manual) 1, Band Neutrophils 0, Platelet Estimate Adequate, Platelet Morphology Normal, Hypochromasia 1+, Sodium Level 141, Potassium Level 3.8, Chloride Level 103, Carbon Dioxide Level 32, Anion Gap 6, Blood Urea Nitrogen 15, Creatinine 1.2, Estimat Glomerular Filtration Rate 45.1 , Glucose Level 101, Calcium Level 9.4, Total Bilirubin 0.5, Aspartate Amino Transf (AST/SGOT) 13L, Alanine Aminotransferase (ALT/SGPT) 12, Alkaline Phosphatase 87, Total Protein 8.4H, Total Protein (PEP) [Pending], Albumin 2.3L , Albumin (PEP) [Pending], Globulin 6.1, Globulin (PEP) [Pending], Albumin/ Globulin Ratio [Pending], Mmkug-1-Kjsoosmqp [Pending], Zdohp-9-Crugphpnm [ Pending], Beta Globulins [Pending], Beta Gamma Globulin [Pending], PEP Abnormal Protein Bands [Pending], Protein Electrophoresis Interpret [Pending], Free Thyroxine 1.65H, Free Triiodothyronine 1.8L Height (Feet): 5 Height (Inches): 5.00 Weight (Pounds): 115 General Appearance: lethargic, confused, agitated Aydee Maurer MD Jul 22, 2018 23:52
[2018-07-23] VITALS: BP 123/80
[2018-07-23 04:00] VITALS: BP 114/78
[2018-07-23] MEDS: Amoxicillin 250mg/5ml susp 150ml GT SCH ×2 (05:44→14:00)
[2018-07-23 06:31] LABS: BASOPHILS % (AUTO) 0.5 % (0.0-2.0); EOSINOPHILS % (AUTO) 1.5 % (0.0-3.0); HEMATOCRIT 28.9 % (37.0-47.0); LYMPHOCYTES % (AUTO) 16.7 % (20.0-45.0); MEAN CORPUSCULAR VOLUME 89 FL (80-99); MONOCYTES % (AUTO) 4.2 % (1.0-10.0); PLATELET COUNT 367 K/UL (150-450); RED BLOOD COUNT 3.25 M/UL (4.20-5.40); RED CELL DISTRIBUTION WIDTH 13.7 % (11.6-14.8); WHITE BLOOD COUNT 13.8 K/UL (4.8-10.8)
[2018-07-23 06:52] LABS: HEMOGLOBIN 9.3 G/DL (12.0-16.0)
[2018-07-23 08:00] VITALS: BP 127/80
[2018-07-23] MEDS: Pantoprazole Inj IVP SCH (09:07)
[2018-07-23] MEDS: Ascorbic Acid 500mg tab ORAL SCH (09:07)
[2018-07-23] MEDS: Docusate 100mg cap ORAL SCH (09:07)
--- NOTE | 2018-07-23 11:02 | Diagnostic Imaging Report ---
Ultrasound abdomen complete INDICATION: Abdominal pain COMPARISON: None TECHNIQUE: Real-time sonographic evaluation of the abdomen is performed using grayscale and color flow. FINDINGS: The liver demonstrates coarsened echotexture and measures 12.8 cm. The portal vein is patent with appropriate direction of flow. The common duct is not abnormally dilated. The gallbladder demonstrates no abnormal wall thickening, pericholecystic free fluid, or shadowing echogenic foci. Visualized portions of the pancreas are within normal limits. The spleen is normal in size and echogenicity. The right kidney measures 10.5 cm in length. Questionable echogenic foci seen within the right kidney may represent nonobstructing calcifications measuring 3-4 mm. The left kidney measures 11.1 cm in length. Moderate left hydronephrosis is seen with a 12 mm nonobstructing left renal pyramidal calcification. Visualized portions of the aorta and IVC are unremarkable. No free fluid is identified. IMPRESSION: 1. Coarsened liver echotexture may be indicative of chronic liver disease. Correlation can be obtained with laboratory values. 2. Moderate left hydronephrosis with 12 mm nonobstructing left renal pyramidal calcification. Correlation can be obtained with dedicated CT of the abdomen and pelvis to evaluate for cause hydronephrosis. 3. Nonobstructing 3-4 mm right renal pyramidal calcifications.
[2018-07-23 12:00] VITALS: BP 107/75
--- NOTE | 2018-07-23 14:23 | General Progress Note ---
Assessment/Plan Assessment/Plan Assessment - anemia - proctocolitis, C Diff (-) - UTI - coarse liver echo - urolithiaisis - hydronephrosis Recommendations - Iron on hold - push PO - consider urology f/u - f/u biopsy results - hepatitis serologies Subjective Allergies: Coded Allergies: No Known Allergies (Unverified , 07/21/17) Subjective non verbal NAD U/S --> coarse liver, (+) urolithiasis with hydronephrosis Objective Last 24 Hour Vital Signs Date Time Temp Pulse Resp B/P (MAP) Pulse Ox O2 Delivery O2 Flow Rate FiO2 07/23/18 12:00 98.1 103 18 107/75 (86) 96 98.1 07/23/18 09:00 Room Air 07/23/18 08:00 99.2 97 18 127/80 (96) 97 99.2 07/23/18 04:00 97.9 109 19 114/78 (90) 93 97.9 07/23/18 00:00 99.8 103 18 123/80 (94) 96 99.8 07/22/18 22:45 Room Air 07/22/18 20:00 98.2 105 18 122/79 (93) 96 98.2 07/22/18 16:00 97.4 94 19 109/74 (86) 99 97.4 Intake and Output 07/22/18 07/23/18 19:00 07:00 Intake Total 880 ml 120 ml Balance 880 ml 120 ml Intake Oral 480 ml 120 ml IV Total 400 ml # Voids 1 3 Laboratory Tests 07/23/18 05:50: White Blood Count 13.8H, Red Blood Count 3.25L, Hemoglobin 9.3L, Hematocrit 28.9L, Mean Corpuscular Volume 89, Mean Corpuscular Hemoglobin 28.6, Mean Corpuscular Hemoglobin Concent 32.2, Red Cell Distribution Width 13.7, Platelet Count 367, Mean Platelet Volume 5.2L, Neutrophils (%) (Auto) 77.0H, Lymphocytes (%) (Auto) 16.7L, Monocytes (%) (Auto) 4.2, Eosinophils (%) (Auto) 1.5, Basophils (%) (Auto) 0.5 Height (Feet): 5 Height (Inches): 5.00 Weight (Pounds): 115 Objective WDWN NCAT supple CTA RRR soft ND No edema Lora Florez MD Jul 23, 2018 14:23
--- NOTE | 2018-07-23 14:33 | Physician Query ---
--------- THIS DOCUMENT IS A PERMANENT PART OF THE MEDICAL RECORD --------- PLEASE COMPLETE DOCUMENT BEFORE SIGNING Dear Dr. Cormier Date: 2017 Filing Writer/CDS Name: Perry Krishna Filing Writer/CDS Phone No.: [phone] Exercise your independent professional judgment when responding to the query. Questions asked do not imply a particular answer is desired or expected. We greatly appreciate your clarification on this issue. CLINICAL DOCUMENTATION STATES: "Malnutrition" is documented in H&P. CLINICAL FINDINGS SHOW: BMI: 19.1, Albumin: 2.3 Can you please clarify the severity and type of the Malnutrition: a. Severity b. Type [] Mild [] Protein Malnutrition [] Moderate [] Protein/Calorie Malnutrition [] Severe Criteria: Mild to Moderate Malnutrition >Serum albumin 2.8 to 3.4 g/dL or Pre-albumin 5 to 7 mg/dl (3) >Inadequate nutritional intake (1, 2, 3, 4) >NPO > 5 days >Weight loss: 5% in 1 month or 7.5% in 3 months or 10% in 6 months (1,3,4) >BMI 16 to 18.4 or Weight <90 of ideal body weight (1,2,3,4) Criteria: Moderate to Severe Malnutrition >Serum Albumin < 2.8 g/dL (1,2) >Lymphocytes < 1500/uL (2) >Inadequate nutritional intake3 , high stress e.g. major trauma, sepsis, pancreatitis, hernandez etc. >Decubitus ulcers (1,2) , skin breakdown(2), easy hair pluckability >Weight <80% standard for height (2) >Triceps skin fold <3 mm2 >Mid-arm muscle circumference <25 cm2 >Creatinine-height index <60% standard (2) Condition Present on Admission: [] Yes [] No [ ] Unable to determine Please also document in your Progress Notes and/or Discharge Summary and indicate if the condition was present on admission. Kirstin ONEILLD
[2018-07-23 16:16] VITALS: BP 102/70
--- NOTE | 2018-07-23 16:36 | Infectious Diseases Prog Note ---
Assessment/Plan Problems: (1) UTI (urinary tract infection) Assessment & Plan: with proteus mirabilis , on oral amoxicillin (2) GERD (gastroesophageal reflux disease) Assessment & Plan: continue PPI (3) Hypothyroidism Assessment & Plan: continue synthroid (4) Anemia Assessment & Plan: monitor H/H transfuse as needed Subjective Constitutional: Reports: no symptoms HEENT: Reports: no symptoms Respiratory: Reports: no symptoms Breasts: Reports: no symptoms Cardiovascular: Reports: no symptoms Gastrointestinal/Abdominal: Reports: no symptoms Genitourinary: Reports: no symptoms Neurologic: Reports: no symptoms Psychiatric: Reports: no symptoms Skin: Reports: no symptoms Endocrine: Reports: no symptoms Hematologic: Reports: no symptoms Musculoskeletal: Reports: no symptoms Allergies: Coded Allergies: No Known Allergies (Unverified , 07/21/17) Objective Vital Signs Last 24 Hour Vital Signs Date Time Temp Pulse Resp B/P (MAP) Pulse Ox O2 Delivery O2 Flow Rate FiO2 07/23/18 16:16 99.0 103 18 102/70 (81) 97 99.0 07/23/18 12:00 98.1 103 18 107/75 (86) 96 98.1 07/23/18 09:00 Room Air 07/23/18 08:00 99.2 97 18 127/80 (96) 97 99.2 07/23/18 04:00 97.9 109 19 114/78 (90) 93 97.9 07/23/18 00:00 99.8 103 18 123/80 (94) 96 99.8 07/22/18 22:45 Room Air 07/22/18 20:00 98.2 105 18 122/79 (93) 96 98.2 Height (Feet): 5 Height (Inches): 5.00 Weight (Pounds): 115 General Appearance: WD/WN, no acute distress HEENT: normocephalic, atraumatic, anicteric, mucous membranes moist, PERRL Respiratory/Chest: chest wall non-tender, lungs clear, normal breath sounds, no respiratory distress, no accessory muscle use Cardiovascular: normal peripheral pulses, normal rate, regular rhythm, no gallop/murmur, no JVD Abdomen: normal bowel sounds, soft, non tender, no organomegaly, non distended , no mass, no scars Genitourinary: normal external genitalia Extremities: no cyanosis, no clubbing Skin: no rash, no lesions, no ulcers, lesions Neurologic/Psychiatric: alert, oriented x 3, responsive Lymphatic: no neck adenopathy, no groin adenopathy Musculoskeletal: normal muscle bulk, no effusion Microbiology Date/Time Source Procedure Growth Status 07/21/18 18:30 Stool Clostridium difficile Toxin Assay - Final Complete Laboratory Tests Test 07/23/18 05:50 White Blood Count 13.8 K/UL (4.8-10.8) H Red Blood Count 3.25 M/UL (4.20-5.40) L Hemoglobin 9.3 G/DL (12.0-16.0) L Hematocrit 28.9 % (37.0-47.0) L Mean Corpuscular Volume 89 FL (80-99) Mean Corpuscular Hemoglobin 28.6 PG (27.0-31.0) Mean Corpuscular Hemoglobin Concent 32.2 G/DL (32.0-36.0) Red Cell Distribution Width 13.7 % (11.6-14.8) Platelet Count 367 K/UL (150-450) Mean Platelet Volume 5.2 FL (6.5-10.1) L Neutrophils (%) (Auto) 77.0 % (45.0-75.0) H Lymphocytes (%) (Auto) 16.7 % (20.0-45.0) L Monocytes (%) (Auto) 4.2 % (1.0-10.0) Eosinophils (%) (Auto) 1.5 % (0.0-3.0) Basophils (%) (Auto) 0.5 % (0.0-2.0) Current Medications Medications (Trade) Dose Ordered Sig/Armani Route PRN Reason Start Time Stop Time Status Last Admin Dose Admin Acetaminophen (Tylenol) 650 mg Q4H PRN ORAL Mild Pain/Temp > 100.5 07/20/18 15:15 08/19/18 15:14 Amoxicillin (Amoxil) 500 mg EVERY 8 HOURS GT 07/22/18 14:00 07/25/18 13:59 07/23/18 05:44 Ascorbic Acid (Vitamin C) 500 mg TWICE A DAY ORAL 07/20/18 18:00 08/19/18 17:59 07/23/18 09:07 Docusate Sodium (Colace) 100 mg TWICE A DAY ORAL 07/20/18 18:00 08/19/18 17:59 07/23/18 09:07 Levothyroxine Sodium (Synthroid) 150 mcg DAILY@0630 ORAL 07/21/18 06:30 08/20/18 06:29 07/23/18 05:44 Mirtazapine (Remeron) 30 mg BEDTIME ORAL 07/23/18 21:00 08/22/18 20:59 Multivitamins (Multivitamins) 1 tab DAILY ORAL 07/21/18 09:00 08/20/18 08:59 07/23/18 09:07 Ondansetron HCl (Zofran) 4 mg Q6H PRN IVP Nausea & Vomiting 07/20/18 15:15 08/19/18 15:14 Pantoprazole (Protonix) 40 mg DAILY IVP 07/21/18 09:00 08/20/18 08:59 07/23/18 09:07 Jayson Riggins M.D. Jul 23, 2018 16:36
[2018-07-23] MEDS ORDERED: Amoxicillin 250mg/5ml susp 150ml ONE (16:39)
--- NOTE | 2018-07-23 17:40 | General Progress Note ---
Assessment/Plan Status: stable Assessment/Plan Assessment and Recs: #. Anemia, secondary to chronic disease. Anemia workup has been reviewed. --> transfuse if hgb below 7 --> given blood on 07/22 --> stable for dc --> ordered t3, t4, folate, spep, upep --> watch counts, has currently improved #. Elevated CEA, rule out malignancy --> s/p egd/colo with polyectomy.Have reviewed pathology report. Negative for carcinoma --> colo reviewed here, no further eval, no bleeding --> cea reviewed, unchanged --> US abd: Coarsened liver echotexture may be indicative of chronic liver disease. Moderate left hydronephrosis with 12 mm nonobstructing left renal pyramidal calcification. #. Macrocytosis 2/2 hypothyroid. The patient is on Synthroid. #. Generalized weakness. #. Hyperlipidemia. #. Right 2 cm ovarian cyst #. T12 compression fracture probably old. Subjective Date patient seen: Jul 23, 2018 Hematologic/Lymphatic: Reports: anemia Allergies: Coded Allergies: No Known Allergies (Unverified , 07/21/17) Subjective No acute events. US abd ordered. H/H stable. Objective Last 24 Hour Vital Signs Date Time Temp Pulse Resp B/P (MAP) Pulse Ox O2 Delivery O2 Flow Rate FiO2 07/23/18 16:16 99.0 103 18 102/70 (81) 97 99.0 07/23/18 12:00 98.1 103 18 107/75 (86) 96 98.1 07/23/18 09:00 Room Air 07/23/18 08:00 99.2 97 18 127/80 (96) 97 99.2 07/23/18 04:00 97.9 109 19 114/78 (90) 93 97.9 07/23/18 00:00 99.8 103 18 123/80 (94) 96 99.8 07/22/18 22:45 Room Air 07/22/18 20:00 98.2 105 18 122/79 (93) 96 98.2 Intake and Output 07/22/18 07/23/18 19:00 07:00 Intake Total 880 ml 120 ml Balance 880 ml 120 ml Intake Oral 480 ml 120 ml IV Total 400 ml # Voids 1 3 Laboratory Tests 07/23/18 05:50: White Blood Count 13.8H, Red Blood Count 3.25L, Hemoglobin 9.3L, Hematocrit 28.9L, Mean Corpuscular Volume 89, Mean Corpuscular Hemoglobin 28.6, Mean Corpuscular Hemoglobin Concent 32.2, Red Cell Distribution Width 13.7, Platelet Count 367, Mean Platelet Volume 5.2L, Neutrophils (%) (Auto) 77.0H, Lymphocytes (%) (Auto) 16.7L, Monocytes (%) (Auto) 4.2, Eosinophils (%) (Auto) 1.5, Basophils (%) (Auto) 0.5 Height (Feet): 5 Height (Inches): 5.00 Weight (Pounds): 115 General Appearance: no apparent distress EENT: PERRL/EOMI Neck: normal alignment Cardiovascular: normal peripheral pulses Respiratory/Chest: no respiratory distress Abdomen: non tender Arturo Newton MD Jul 23, 2018 17:40
--- NOTE | 2018-07-24 00:02 | General Progress Note ---
Assessment/Plan Status: stable Assessment/Plan encephalopathy due to [facility] seroquel prn ativan prn provided ro/st Subjective Date patient seen: Jul 23, 2018 Neurologic/Psychiatric: Reports: anxiety, depressed, emotional problems Allergies: Coded Allergies: No Known Allergies (Unverified , 07/21/17) Objective Last 24 Hour Vital Signs Date Time Temp Pulse Resp B/P (MAP) Pulse Ox O2 Delivery O2 Flow Rate FiO2 07/23/18 16:16 99.0 103 18 102/70 (81) 97 99.0 07/23/18 12:00 98.1 103 18 107/75 (86) 96 98.1 07/23/18 09:00 Room Air 07/23/18 08:00 99.2 97 18 127/80 (96) 97 99.2 07/23/18 04:00 97.9 109 19 114/78 (90) 93 97.9 Intake and Output 07/23/18 07/24/18 19:00 07:00 # Voids 2 Laboratory Tests 07/23/18 05:50: White Blood Count 13.8H, Red Blood Count 3.25L, Hemoglobin 9.3L, Hematocrit 28.9L, Mean Corpuscular Volume 89, Mean Corpuscular Hemoglobin 28.6, Mean Corpuscular Hemoglobin Concent 32.2, Red Cell Distribution Width 13.7, Platelet Count 367, Mean Platelet Volume 5.2L, Neutrophils (%) (Auto) 77.0H, Lymphocytes (%) (Auto) 16.7L, Monocytes (%) (Auto) 4.2, Eosinophils (%) (Auto) 1.5, Basophils (%) (Auto) 0.5 Height (Feet): 5 Height (Inches): 5.00 Weight (Pounds): 115 General Appearance: no apparent distress, alert, confused Aydee Maurer MD Jul 24, 2018 00:02
--- NOTE | 2018-07-27 09:44 | Discharge Summary ---
Discharge Summary Discharge Summary _ DATE OF ADMISSION: 07/20/2018 DATE OF DISCHARGE: 07/23/2018 REASON FOR ADMISSION: 67 years old female with past medical history of dementia, GERD ,hypothyroidism ,anemia, proctocolitis, diagnosed on CT of the abdomen in July 2017, was brought for evaluation from [facility] for anemia. Patient by herself was unable to provide any information. Upon evaluation vital signs were stable. Patient was placed on supplemental oxygen via nasal cannula with pulse oximetry reaching 95%. Laboratory workup revealed leukocytosis WBC 14.1. Hemoglobin 8.4, hematocrit 27. Urinalysis with evidence of UTI. Electrolytes and renal parameters stable. Albumin 2.3. Patient admitted with diagnoses of anemia, urinary tract infection , malnutrition. CONSULTANTS: ID specialist Dr. Mock GI specialist Dr. Florez fisher clam/oncologist Dr. Newton psychiatrist [facility] COURSE: Patient admitted. Patient started on empiric antibiotic. Urine culture grew Proteus mirabilis. Antibiotic optimized based on culture and sensitivity. Patient will need to continue oral antibiotics at the facility to complete the course. Hemoglobin and hematocrit were closely monitored. On previous admission in 2016, CT of the abdomen and pelvis revealed evidence of proctocolitis with wall thickening. Tumor markers at that time revealed elevated CEA of 11.7 and stable CA-19-9. GI consult was requested. Stool for C. difficile was negative. Abdominal ultrasound revealed coarsened liver echotexture, possibly indicative of chronic liver disease. LFT were stable. Due to anemia, evidence of proctocolitis on prior CT scan and elevated prior CEA, patient undergone upper endoscopy and colonoscopy, which revealed normal upper and lower gastrointestinal endoscopy and no mucosal abnormalities in rectosigmoid area. Patient started on diet and was advanced as tolerated. Biopsy of duodenal, terminal ileum, and rectosigmoid colon was benign , without diagnostic abnormality. Biopsy of stomach revealed no evidence of H. pylori infection, no intestinal metaplasia or dysplasia, but showed mild chronic gastritis with no activity. Biopsy of polyps revealed no high-grade dysplasia and showed tubular adenoma. Stool for occult blood was negative. Repeated CEA on this admission showed normal value of 4.4. [employer] closely followed. Anemia workup revealed evidence of anemia of chronic disease. Hemoglobin and hematocrit were closely monitored. Patient received 2 units of packed red blood cells on . Prior to discharge hemoglobin 9.3 hematocrit 28.9. Synthroid was continued. GI prophylaxis provided. Bedside swallow evaluation was done and revealed no evidence of dysphagia. Diet provided as per speech therapist recommendations with strict aspiration / reflux precautions and one-to-one feeding. Nutritional assessment revealed moderate to high nutritional risk. Patient started on dietary supplements as per accounting bookkeeper recommendations. Psychiatrist seen and evaluated patient, diagnosed patient with encephalopathy secondary to general medical condition. Reality orientation and supportive therapy provided. Psychiatric medication regimen optimized. Patient was stabilized and ready for transfer back to [facility] facility for continuation of care FINAL DIAGNOSES: Urinary tract infection with Proteus mirabilis Anemia of chronic disease Malnutrition , moderate to severe Encephalopathy , secondary to general medical condition Status post upper endoscopy and colonoscopy with biopsy GERD Hypothyroidism Proctocolitis DISCHARGE MEDICATIONS: See Medication Reconciliation list. DISCHARGE INSTRUCTIONS: Patient was discharged to the [facility] facility. Follow up with medical doctor at the facility. I have been assigned to dictate discharge summary for this account. I was not involved in the patient's management. Joann Avila NP Jul 27, 2018 09:44
== END 2018-07-23 16:40 | DRG 689 ==
LOC: EDBD 11:47 → EDBEDREQ 12:07 → EMR 12:35 → 4E 12:41 → EDBEDREQ 13:52 → 4E 07-21 15:43
PROC: 0DBN8ZX Excision of Sigmoid Colon, Via Natural or Artificial Opening Endoscopic, Diagnostic (ICD-10-PCS; principal; 2018-07-22 07:19)
PROC: 0DB98ZX Excision of Duodenum, Via Natural or Artificial Opening Endoscopic, Diagnostic (ICD-10-PCS; principal; 2018-07-22 07:19)
PROC: 0DBB8ZX Excision of Ileum, Via Natural or Artificial Opening Endoscopic, Diagnostic (ICD-10-PCS; principal; 2018-07-22 07:19)
DX: N39.0 Urinary tract infection, site not specified (principal); E43 Unspecified severe protein-calorie malnutrition; N17.9 Acute kidney failure, unspecified; Z68.1 Body mass index [BMI] 19.9 or less, adult; G93.40 Encephalopathy, unspecified; B96.4 Proteus (mirabilis) (morganii) as the cause of diseases classified elsewhere; F03.90 Unspecified dementia, unspecified severity, without behavioral disturbance, psychotic disturbance, mood disturbance, and anxiety; F09 Unspecified mental disorder due to known physiological condition; K21.9 Gastro-esophageal reflux disease without esophagitis; E03.9 Hypothyroidism, unspecified; E88.09 Other disorders of plasma-protein metabolism, not elsewhere classified; K29.70 Gastritis, unspecified, without bleeding; D63.8 Anemia in other chronic diseases classified elsewhere; E78.5 Hyperlipidemia, unspecified; N83.201 Unspecified ovarian cyst, right side; N13.2 Hydronephrosis with renal and ureteral calculous obstruction; R97.0 Elevated carcinoembryonic antigen [CEA]
CPT/HCPCS: 36415; 76700; 80053; 81003; 82270; 82378; 82728; 82746; 83540; 83550; 83615; 84165; 84439; 84481; 85007; 85025; 85044; 85384; 85610; 85730; 86850; 86900; 86901; 86920; 87081; 87086; 87181; 87324; 94003; 94150; 99285